=== PATIENT | female | born 1965 | race Caucasian/White ===

== ENCOUNTER 2017-02-23 08:42 | Emergency (ER) | payer OTHER ==
[2017-02-23] MEDS ORDERED: IPRATROPIUM-ALBUTEROL 3 ML NEB INHALATION STA (08:54)
[2017-02-23] MEDS ORDERED: methylPREDNISolone SOD SUCCI 125 MG/2 ML VIAL IV STA (08:54)
--- NOTE | 2017-02-23 08:56 | ED ---
General Adult HPI - General Chief complaint: Shortness of Breath Stated complaint: VIOLETTE Time Seen by Provider: 02/23/17 08:51 Source: patient, RN notes reviewed Mode of arrival: wheelchair Limitations: no limitations - History of Present Illness Initial comments: Patient is a pleasant 52-year-old female presenting to the emergency department complaining of difficulty breathing. Onset was a few days ago but worse today. Patient does have chest congestion however cough has been nonproductive. Patient feels she cannot get up the phlegm. No fever. No chest pain. Patient has a history of congestive heart failure similar symptoms previously. Patient is a smoker but never previously diagnosed with COPD or emphysema. No leg swelling or leg pain. - Related Data Home Medications Medication Instructions Recorded Confirmed Ibuprofen [Motrin] 600 mg PO BID PRN 02/23/17 02/23/17 Multivitamins, Thera [Multivitamin 1 tab PO DAILY 02/23/17 02/23/17 (formulary)] Previous Rx's Medication Instructions Recorded Albuterol Inhaler [Ventolin Hfa 2 puff INHALATION Q4HR PRN #1 02/23/17 Inhaler] inhaler predniSONE 20 mg PO BID #10 tab 02/23/17 Allergies Allergy/AdvReac Type Severity Reaction Status Date / Time No Known Allergies Allergy Verified 02/23/17 09:30 Review of Systems ROS Statement: Those systems with pertinent positive or pertinent negative responses have been documented in the HPI. ROS Other: All systems not noted in ROS Statement are negative. Constitutional: Denies: fever, chills Eyes: Denies: eye pain ENT: Denies: ear pain Respiratory: Reports: cough, dyspnea Cardiovascular: Denies: chest pain Endocrine: Denies: fatigue Gastrointestinal: Denies: abdominal pain Genitourinary: Denies: dysuria Musculoskeletal: Denies: back pain Skin: Denies: rash Neurological: Denies: weakness Past Medical History Past Medical History: Heart Failure History of Any Multi-Drug Resistant Organisms: None Reported Past Surgical History: Section Past Psychological History: No Psychological Hx Reported Smoking Status: Current every day smoker Past Alcohol Use History: None Reported Past Drug Use History: None Reported General Exam Limitations: no limitations General appearance: alert Head exam: Present: atraumatic Eye exam: Present: normal appearance, PERRL ENT exam: Present: normal oropharynx Neck exam: Present: normal inspection Respiratory exam: Present: respiratory distress, wheezes, decreased breath sounds Cardiovascular Exam: Present: regular rate, normal rhythm GI/Abdominal exam: Present: soft. Absent: tenderness Extremities exam: Present: normal inspection. Absent: pedal edema, calf tenderness Back exam: Present: normal inspection Neurological exam: Present: alert Psychiatric exam: Present: normal affect, normal mood Skin exam: Present: normal color Course Vital Signs 02/23/17 02/23/17 02/23/17 08:44 09:01 09:13 Temperature 96.8 F L Pulse Rate 87 80 84 Respiratory 28 H Rate Blood Pressure 166/86 O2 Sat by Pulse 98 Oximetry 02/23/17 09:48 Temperature Pulse Rate 75 Respiratory 20 Rate Blood Pressure 188/97 O2 Sat by Pulse 95 Oximetry EKG Findings - EKG Comments: EKG Findings:: Normal sinus rhythm 73. WA 136. QRS 78. QT 414. QTC 456. Normal axis. Normal QRS. Nonspecific ST-T. Medical Decision Making - Medical Decision Making Patient reexamined and resting comfortably in bed. Lung sounds improved following nebulizer. No respiratory distress. Patient requesting discharge home. Patient updated on results and need for follow-up. Patient states she has been told suspicion of COPD previously as well. Patient advised to discontinue smoking. - Lab Data Result diagrams: 02/23/17 09:06 02/23/17 09:06 Lab Results 02/23/17 02/23/17 02/23/17 Range/Units 09:06 09:06 09:06 WBC 14.0 H (3.8-10.6) k/uL RBC 4.89 (3.80-5.40) m/uL Hgb 15.2 (11.4-16.0) gm/dL Hct 46.5 H (34.0-46.0) % MCV 95.0 (80.0-100.0) fL MCH 31.1 (25.0-35.0) pg MCHC 32.8 (31.0-37.0) g/dL RDW 12.7 (11.5-15.5) % Plt Count 229 (150-450) k/uL Neutrophils % 80 % Lymphocytes % 11 % Monocytes % 5 % Eosinophils % 2 % Basophils % 0 % Neutrophils # 11.2 H (1.3-7.7) k/uL Lymphocytes # 1.5 (1.0-4.8) k/uL Monocytes # 0.7 (0-1.0) k/uL Eosinophils # 0.3 (0-0.7) k/uL Basophils # 0.0 (0-0.2) k/uL PT (9.0-12.0) sec INR (<1.2) APTT (22.0-30.0) sec Sodium 143 (137-145) mmol/L Potassium 3.6 (3.5-5.1) mmol/L Chloride 108 H (98-107) mmol/L Carbon Dioxide 25 (22-30) mmol/L Anion Gap 10 mmol/L BUN 9 (7-17) mg/dL Creatinine 0.77 (0.52-1.04) mg/dL Est GFR (MDRD) Af Amer >60 (>60 ml/min/1.73 sqM) Est GFR (MDRD) Non-Af >60 (>60 ml/min/1.73 sqM) Glucose 117 H (74-99) mg/dL Calcium 9.6 (8.4-10.2) mg/dL Total Bilirubin 0.6 (0.2-1.3) mg/dL AST 18 (14-36) U/L ALT 27 (9-52) U/L Alkaline Phosphatase 82 (38-126) U/L Total Creatine Kinase 50 (30-135) U/L CK-MB (CK-2) 0.9 (0.0-2.4) ng/mL CK-MB (CK-2) Rel Index 1.8 Troponin I <0.012 (0.000-0.034) ng/mL NT-Pro-B Natriuret Pep pg/mL Total Protein 7.1 (6.3-8.2) g/dL Albumin 4.2 (3.5-5.0) g/dL 02/23/17 02/23/17 Range/Units 09:06 09:06 WBC (3.8-10.6) k/uL RBC (3.80-5.40) m/uL Hgb (11.4-16.0) gm/dL Hct (34.0-46.0) % MCV (80.0-100.0) fL MCH (25.0-35.0) pg MCHC (31.0-37.0) g/dL RDW (11.5-15.5) % Plt Count (150-450) k/uL Neutrophils % % Lymphocytes % % Monocytes % % Eosinophils % % Basophils % % Neutrophils # (1.3-7.7) k/uL Lymphocytes # (1.0-4.8) k/uL Monocytes # (0-1.0) k/uL Eosinophils # (0-0.7) k/uL Basophils # (0-0.2) k/uL PT 10.4 (9.0-12.0) sec INR 1.0 (<1.2) APTT 25.5 (22.0-30.0) sec Sodium (137-145) mmol/L Potassium (3.5-5.1) mmol/L Chloride (98-107) mmol/L Carbon Dioxide (22-30) mmol/L Anion Gap mmol/L BUN (7-17) mg/dL Creatinine (0.52-1.04) mg/dL Est GFR (MDRD) Af Amer (>60 ml/min/1.73 sqM) Est GFR (MDRD) Non-Af (>60 ml/min/1.73 sqM) Glucose (74-99) mg/dL Calcium (8.4-10.2) mg/dL Total Bilirubin (0.2-1.3) mg/dL AST (14-36) U/L ALT (9-52) U/L Alkaline Phosphatase (38-126) U/L Total Creatine Kinase (30-135) U/L CK-MB (CK-2) (0.0-2.4) ng/mL CK-MB (CK-2) Rel Index Troponin I (0.000-0.034) ng/mL NT-Pro-B Natriuret Pep 246 pg/mL Total Protein (6.3-8.2) g/dL Albumin (3.5-5.0) g/dL - Radiology Data Radiology results: image reviewed (Chest x-ray shows no acute process.) Disposition Clinical Impression: Acute bronchospasm Disposition: HOME SELF-CARE Condition: Stable Instructions: COPD (Chronic Obstructive Pulmonary Disease) (ED) Additional Instructions: Please follow-up with primary care physician in the next day or 2 for recheck. Return for difficulty breathing, fevers, chest pain, worsening symptoms or other concerns. Prescriptions: Albuterol Inhaler [Ventolin Hfa Inhaler] 2 puff INHALATION Q4HR PRN #1 inhaler PRN Reason: Dyspnea predniSONE 20 mg PO BID #10 tab Referrals: Indiana Goode MD [STAFF PHYSICIAN] - 1-2 days Roxy Auguste MD [STAFF PHYSICIAN] - 1-2 days Time of Disposition: 10:52
[2017-02-23 09:33] LABS: Basophils % (A) 0 %; CHCM 32.8; Eosinophils # (A) 0.3 k/uL (0-0.7); Eosinophils % (A) 2 %; HCT 46.5 % (34.0-46.0); HDW 2.31; HGB 15.2 gm/dL (11.4-16.0); Luc # (Auto) 0.24; Luc % (Auto) 2; Lymphocytes # (A) 1.5 k/uL (1.0-4.8); Lymphocytes % (A) 11 %; MCH 31.1 pg (25.0-35.0); MCHC 32.8 g/dL (31.0-37.0); Monocytes # (A) 0.7 k/uL (0-1.0); Monocytes % (A) 5 %; Neutrophils # (A) 11.2 k/uL (1.3-7.7); Neutrophils % (A) 80 %; RBC 4.89 m/uL (3.80-5.40); RDW 12.7 % (11.5-15.5); WBC (Perox) 13.56
--- NOTE | 2017-02-23 09:40 | XR ---
EXAMINATION TYPE: XR chest 2V DATE OF EXAM: 02/23/2017 COMPARISON: 02/21/2015 TECHNIQUE: PA and lateral views submitted. HISTORY: Shortness of breath FINDINGS: The lungs are clear and there is no pneumothorax, pleural effusion, or focal pneumonia. Curvature t he spine with hypertrophic and degenerative change. Mild hyperinflation correlate for COPD. IMPRESSION: 1. No acute process.
[2017-02-23 09:41] LABS: ALT 27 U/L (9-52); AST 18 U/L (14-36); Alkaline Phosphatase 82 U/L (38-126); Anion Gap 10 mmol/L; Blood Urea Nitrogen 9 mg/dL (7-17); Calcium 9.6 mg/dL (8.4-10.2); Carbon Dioxide 25 mmol/L (22-30); Chloride 108 mmol/L (98-107); Glucose 117 mg/dL (74-99); Non-African American GFR(MDRD) >60 (>60 ml/min/1.73 sqM); Potassium 3.6 mmol/L (3.5-5.1); Sodium 143 mmol/L (137-145); Total Bilirubin 0.6 mg/dL (0.2-1.3); Total Protein 7.1 g/dL (6.3-8.2)
[2017-02-23 09:45] LABS: Partial Thromboplastin Time 25.5 sec (22.0-30.0); Prothrombin Time 10.4 sec (9.0-12.0)
[2017-02-23 10:00] LABS: Creatine Kinase 50 U/L (30-135)
[2017-02-23 10:12] LABS: Creatine Kinase MB 0.9 ng/mL (0.0-2.4); Troponin I <0.012 ng/mL (0.000-0.034)
[2017-02-23 11:05] VITALS: BP 169/91; PULSE 82; RESP 16; TEMP 97.6
== END 2017-02-23 11:00 | disposition home or self-care (01) ==
LOC: EC 08:42
DX: J98.01 Acute bronchospasm (principal); I50.9 Heart failure, unspecified; F17.200 Nicotine dependence, unspecified, uncomplicated; Z79.899 Other long term (current) drug therapy
CPT/HCPCS: 36415; 94640; 93005; 83880; 80053; 82550; 82553; 84484; 85025; 85610; 85730; 71020; 99285; 96374; J2930

== ENCOUNTER 2017-09-23 21:58 | Inpatient (IN) | payer OTHER ==
[2017-09-23 22:20] LABS: Basophils # (A) 0.1 k/uL (0-0.2); Basophils % (A) 1 %; Eosinophils # (A) 0.3 k/uL (0-0.7); Eosinophils % (A) 2 %; HCT 44.5 % (34.0-46.0); HGB 14.9 gm/dL (11.4-16.0); Lymphocytes # (A) 4.3 k/uL (1.0-4.8); Lymphocytes % (A) 26 %; MCH 31.4 pg (25.0-35.0); MCHC 33.4 g/dL (31.0-37.0); Monocytes % (A) 6 %; Neutrophils # (A) 9.7 k/uL (1.3-7.7); Neutrophils % (A) 60 %; Platelet Count 393 k/uL (150-450); RBC 4.74 m/uL (3.80-5.40); RDW 13.3 % (11.5-15.5); WBC 16.2 k/uL (3.8-10.6)
[2017-09-23 22:25] LABS: Glucose,Whole Blood 245 mg/dL (75-99)
[2017-09-23 22:26] LABS: Albumin 4.1 g/dL (3.5-5.0); Calcium 9.4 mg/dL (8.4-10.2); Potassium 3.1 mmol/L (3.5-5.1); Total Bilirubin 0.5 mg/dL (0.2-1.3); Total Protein 6.6 g/dL (6.3-8.2)
--- NOTE | 2017-09-23 22:28 | XR ---
EXAMINATION TYPE: XR chest 1V portable DATE OF EXAM: 09/23/2017 COMPARISON: 02/23/2017 HISTORY: A myocardial infarct. 2. Placement. TECHNIQUE: Single frontal view of the chest is obtained. FINDINGS: Endotracheal tube has the tip at the origin right main stem bronchus. Heart size is normal . There is no heart failure. Lungs are clear. There are chest leads. IMPRESSION: No active cardiopulmonary disease. No change compared to old exam. The endotracheal tube should be pulled back 3 to 4 cm.
[2017-09-23 22:30] LABS: Creatine Kinase 78 U/L (30-135)
[2017-09-23 22:31] LABS: Prothrombin Time 10.3 sec (9.0-12.0)
[2017-09-23 22:43] LABS: Creatine Kinase MB 0.6 ng/mL (0.0-2.4); Troponin I <0.012 ng/mL (0.000-0.034)
[2017-09-23] MEDS ORDERED: MAGNESIUM SULFATE-D5W PMX 1 GM in DEXTROSE/WATER 1 100ML.BAG IVPB ONE ×2 (22:45→23:15)
[2017-09-23] MEDS ORDERED: MIDAZOLAM (PF) 1 MG/ML 5 ML VIAL IV STA (22:45)
[2017-09-23] MEDS ORDERED: ROCURONIUM BROMIDE 10 MG/ML 10 ML VIAL IV STA (22:45)
[2017-09-23] MEDS ORDERED: AMIODARONE 450 MG in DEXTROSE 5% IN WATER 250 ML IV ONE ×2 (22:49)
[2017-09-23 22:55] LABS: Amorphous Sediment,Urine Few /hpf; Appearance,Urine Cloudy (Clear); Bilirubin,Urine Negative (Negative); Blood,Urine Small (Negative); Color,Urine Yellow; Glucose,Urine (UA) 2+ (Negative); Hyaline Casts,Urine 58 /lpf (0-2); Ketones,Urine Negative (Negative); Leukocyte Esterase,Urine Negative (Negative); Mucus,Urine Rare /hpf; Nitrite,Urine Negative (Negative); Protein,Urine 3+ (Negative); RBC,Urine 43 /hpf (0-5); Specific Gravity,Urine 1.018 (1.001-1.035); Squamous Epithelial Cell,Urine 8 /hpf (0-4); Urobilinogen,Urine <2.0 mg/dL (<2.0); WBC,Urine 177 /hpf (0-5)
[2017-09-23 22:56] LABS: Cocaine Screen,Urine Not Detected (NotDetected); Opiate Screen,Urine Not Detected (NotDetected); Phencyclidine Screen,Urine Not Detected (NotDetected); Urn Cannabinoid Scrn Detected (NotDetected)
[2017-09-23 22:57] LABS: Amphetamine Screen,Urine Not Detected (NotDetected); Barbiturate Screen,Urine Not Detected (NotDetected); Benzodiazepines Screen,Urine Not Detected (NotDetected); Methadone Screen, Urine Not Detected (NotDetected); Oxycodone Screen, Urine Not Detected (NotDetected); Tricyclic Antidepressant,Urine Not Detected (NotDetected)
[2017-09-23] MEDS ORDERED: PROPOFOL 1,000 MG in EMPTY BAG 1 BAG IV ONE (22:58)
[2017-09-23 22:59] LABS: Acetaminophen <10.0 ug/mL; Magnesium 1.8 mg/dL (1.6-2.3); Salicylate <1.0 mg/dL
--- NOTE | 2017-09-23 23:20 | XR ---
EXAMINATION TYPE: XR chest 1V portable DATE OF EXAM: 09/23/2017 COMPARISON: Today HISTORY: Check tube placement TECHNIQUE: Single frontal view of the chest is obtained. FINDINGS: Endotracheal tube has tip 2 cm from the mary. The lungs are clear of infiltrate. There i s no heart failure. Costophrenic angles are clear. IMPRESSION: Endotracheal tube is in improved position. This could be pulled back 1 to 2 cm.
[2017-09-23] MEDS: LORazepam 2 MG/ML INJ IV STA ×3 (23:26→23:51)
[2017-09-23] MEDS ORDERED: LORazepam Vial 40 MG in DEXTROSE 5% IN WATER 80 ML IV SCH ×2 (23:30)
--- NOTE | 2017-09-23 23:30 | ED ---
General Adult HPI - General Chief complaint: Cardiac Arrest/CPR Stated complaint: unresponsive Time Seen by Provider: 09/23/17 22:15 Source: EMS, RN notes reviewed Mode of arrival: EMS Limitations: altered mental status, physical limitation - History of Present Illness Initial comments: 52-year-old female presenting as a hospital arrest. EMS reports finding the patient with agonal respirations, pinpoint pupils. Patient is placed on the monitor, found to be in V. fib arrest. She is defibrillated twice by EMS. She returns to normal sinus rhythm. She is given 4 mg of Narcan with improvement in respirations. According to patient's brother who is available for history later in the patient's course, she is not known to use heroin or opiate medications. She does occasionally smoke marijuana. - Related Data Home Medications Medication Instructions Recorded Confirmed Ibuprofen [Motrin] 600 mg PO BID PRN 02/23/17 02/23/17 Multivitamins, Thera [Multivitamin 1 tab PO DAILY 02/23/17 02/23/17 (formulary)] Previous Rx's Medication Instructions Recorded Albuterol Inhaler [Ventolin Hfa 2 puff INHALATION Q4HR PRN #1 02/23/17 Inhaler] inhaler predniSONE 20 mg PO BID #10 tab 02/23/17 Allergies Allergy/AdvReac Type Severity Reaction Status Date / Time No Known Allergies Allergy Verified 02/23/17 09:30 Review of Systems ROS Statement: Those systems with pertinent positive or pertinent negative responses have been documented in the HPI. ROS Other: All systems not noted in ROS Statement are negative. Past Medical History Past Medical History: Heart Failure History of Any Multi-Drug Resistant Organisms: None Reported Past Surgical History: Section Past Psychological History: No Psychological Hx Reported Smoking Status: Current every day smoker Past Alcohol Use History: Unable to Obtain Past Drug Use History: Unable to Obtain General Exam Limitations: altered mental status, physical limitation General appearance: obtunded, in distress Head exam: Present: atraumatic, normocephalic Eye exam: Present: PERRL (3 mm bilaterally and reactive) Neck exam: Present: normal inspection. Absent: tenderness Respiratory exam: Present: normal lung sounds bilaterally, respiratory distress , other (Equal breath sounds with BVM) Cardiovascular Exam: Present: normal rhythm, tachycardia GI/Abdominal exam: Present: soft. Absent: distended, tenderness, guarding Extremities exam: Present: normal inspection, normal capillary refill. Absent: pedal edema Neurological exam: Present: other (Patient is intubated upon arrival with rocuronium. No spontaneous movements, pupils are reactive.) Skin exam: Present: warm, dry, intact. Absent: cyanosis, diaphoretic Course Vital Signs 09/23/17 09/23/17 09/23/17 22:03 22:12 22:19 Temperature 97.3 F L Pulse Rate 100 Pulse Rate [ 86 88 Mash Filter Press Operator ] Respiratory 12 26 H Rate Blood Pressure 151/92 Blood Pressure 106/67 123/79 [Left Arm] O2 Sat by Pulse 90 L 100 100 Oximetry 09/23/17 09/23/17 09/23/17 22:47 22:56 23:00 Temperature Pulse Rate 116 H Pulse Rate [ 114 H 116 H Mash Filter Press Operator ] Respiratory 26 H 26 H 20 Rate Blood Pressure 179/107 Blood Pressure 199/115 179/107 [Left Arm] O2 Sat by Pulse 100 100 100 Oximetry 09/23/17 09/23/17 09/23/17 23:02 23:04 23:07 Temperature Pulse Rate Pulse Rate [ 114 H 110 H 94 Mash Filter Press Operator ] Respiratory 20 22 Rate Blood Pressure Blood Pressure 182/107 127/81 108/76 [Left Arm] O2 Sat by Pulse 100 100 99 Oximetry 09/23/17 09/23/17 09/23/17 23:15 23:27 23:29 Temperature Pulse Rate Pulse Rate [ 108 H 96 94 Mash Filter Press Operator ] Respiratory 24 24 26 H Rate Blood Pressure Blood Pressure 140/83 125/66 132/86 [Left Arm] O2 Sat by Pulse 100 100 95 Oximetry EKG Findings - EKG Comments: EKG Findings:: EKG obtained at 2203, shows ventricular rate of 110, MA interval 126, QRS duration 94, QTC is very prolonged at 533, there is nonspecific ST segment changes, no ST segment elevation. EKG obtained at 2232 shows normal sinus rhythm, occasional PVC, right atrial enlargement, ventricular rate of 95, MA interval 182, QRS duration 96, QTC 462 which is significantly improved compared to previous. No ST segment elevation Procedures - Intubation Time Out Performed: Yes Sedative: Versed Mg Given: 5 Paralytic: Rocuronium Mg Given: 50 Laryngoscope: Kalani Size: 3 ET Tube Size: 7.5 ET Tube Uncuffed: No Tube Secured Depth (cm): 22 Tube Secured Location: lips Tube Placement Confirmation: visualized tube passing through cords, equal breath sounds bilaterally, no breath sounds over epigastrium, confirmation by capnometry Patient Tolerated Procedure: well Intubation Complications: none Medical Decision Making - Medical Decision Making 52-year-old female presenting as out of hospital V. fib arrest. Patient was down for approximately 5 minutes prior to EMS arrival. She received 20 minutes of on scene care, however she had return of spontaneous circulation and normal sinus rhythm early in this course. Patient is in sinus rhythm on initial presentation. Normal blood pressure. She is nonresponsive, no significant spontaneous respirations. EKG does not show any ST segment elevation. There is prolonged QT. Prehospital rhythm strip is concerning for torsades. Patient receives repeat EKG approximately 30 minutes after initial presentation, this does show normalization of QTc. Patient given 2 g of magnesium. She is started on amiodarone infusion. Chest x-ray is clear, no pneumonia, no congestive heart failure. Laboratory studies reveal elevated white blood cell count 16.2 this baby reactive. Hemoglobin stable 14.9, potassium is 3.1. This is replaced with 40 mEq. Troponin neg. Urinalysis is positive for 177 WBCs. Urine culture will be obtained. Head CT is obtained, this is negative for acute intracranial pathology. Case discussed with Dr. Gould who will accept the admission, case discussed with Dr. Chew who will accept the patient in the ICU. Dr. Rocha aware of patient. - Lab Data Result diagrams: 09/23/17 22:00 09/23/17 22:00 Lab Results 09/23/17 09/23/17 09/23/17 Range/Units 22:00 22:00 22:00 WBC 16.2 H (3.8-10.6) k/uL RBC 4.74 (3.80-5.40) m/uL Hgb 14.9 (11.4-16.0) gm/dL Hct 44.5 (34.0-46.0) % MCV 94.0 (80.0-100.0) fL MCH 31.4 (25.0-35.0) pg MCHC 33.4 (31.0-37.0) g/dL RDW 13.3 (11.5-15.5) % Plt Count 393 (150-450) k/uL Neutrophils % 60 % Lymphocytes % 26 % Monocytes % 6 % Eosinophils % 2 % Basophils % 1 % Neutrophils # 9.7 H (1.3-7.7) k/uL Lymphocytes # 4.3 (1.0-4.8) k/uL Monocytes # 1.0 (0-1.0) k/uL Eosinophils # 0.3 (0-0.7) k/uL Basophils # 0.1 (0-0.2) k/uL PT (9.0-12.0) sec INR (<1.2) APTT (22.0-30.0) sec Sodium 142 (137-145) mmol/L Potassium 3.1 L (3.5-5.1) mmol/L Chloride 106 (98-107) mmol/L Carbon Dioxide 16 L (22-30) mmol/L Anion Gap 20 mmol/L BUN 9 (7-17) mg/dL Creatinine 0.90 (0.52-1.04) mg/dL Est GFR (CKD-EPI)AfAm 86 (>60 ml/min/1.73 sqM) Est GFR (CKD-EPI)NonAf 75 (>60 ml/min/1.73 sqM) Glucose 224 H (74-99) mg/dL POC Glucose (mg/dL) (75-99) mg/dL POC Glu Social Sciences Professor ID Calcium 9.4 (8.4-10.2) mg/dL Magnesium (1.6-2.3) mg/dL Total Bilirubin 0.5 (0.2-1.3) mg/dL AST 188 H (14-36) U/L ALT 97 H (9-52) U/L Alkaline Phosphatase 117 (38-126) U/L Total Creatine Kinase 78 (30-135) U/L CK-MB (CK-2) 0.6 (0.0-2.4) ng/mL CK-MB (CK-2) Rel Index 0.8 Troponin I <0.012 (0.000-0.034) ng/mL Total Protein 6.6 (6.3-8.2) g/dL Albumin 4.1 (3.5-5.0) g/dL Urine Color Urine Appearance (Clear) Urine pH (5.0-8.0) Ur Specific [place] (1.001-1.035) Urine Protein (Negative) Urine Glucose (UA) (Negative) Urine Ketones (Negative) Urine Blood (Negative) Urine Nitrite (Negative) Urine Bilirubin (Negative) Urine Urobilinogen (<2.0) mg/dL Ur Leukocyte Esterase (Negative) Urine RBC (0-5) /hpf Urine WBC (0-5) /hpf Ur Squamous Epith Cells (0-4) /hpf Amorphous Sediment (None) /hpf Hyaline Casts (0-2) /lpf Urine Mucus (None) /hpf Salicylates mg/dL Urine Opiates Screen (NotDetected) Ur Oxycodone Screen (NotDetected) Urine Methadone Screen (NotDetected) Ur Propoxyphene Screen (NotDetected) Acetaminophen ug/mL Ur Barbiturates Screen (NotDetected) U Tricyclic Antidepress (NotDetected) Ur Phencyclidine Scrn (NotDetected) Ur Amphetamines Screen (NotDetected) U Methamphetamines Scrn (NotDetected) U Benzodiazepines Scrn (NotDetected) Urine Cocaine Screen (NotDetected) U Marijuana (THC) Screen (NotDetected) 09/23/17 09/23/17 09/23/17 Range/Units 22:00 22:00 22:20 WBC (3.8-10.6) k/uL RBC (3.80-5.40) m/uL Hgb (11.4-16.0) gm/dL Hct (34.0-46.0) % MCV (80.0-100.0) fL MCH (25.0-35.0) pg MCHC (31.0-37.0) g/dL RDW (11.5-15.5) % Plt Count (150-450) k/uL Neutrophils % % Lymphocytes % % Monocytes % % Eosinophils % % Basophils % % Neutrophils # (1.3-7.7) k/uL Lymphocytes # (1.0-4.8) k/uL Monocytes # (0-1.0) k/uL Eosinophils # (0-0.7) k/uL Basophils # (0-0.2) k/uL PT 10.3 (9.0-12.0) sec INR 1.0 (<1.2) APTT 23.0 (22.0-30.0) sec Sodium (137-145) mmol/L Potassium (3.5-5.1) mmol/L Chloride (98-107) mmol/L Carbon Dioxide (22-30) mmol/L Anion Gap mmol/L BUN (7-17) mg/dL Creatinine (0.52-1.04) mg/dL Est GFR (CKD-EPI)AfAm (>60 ml/min/1.73 sqM) Est GFR (CKD-EPI)NonAf (>60 ml/min/1.73 sqM) Glucose (74-99) mg/dL POC Glucose (mg/dL) (75-99) mg/dL POC Glu Social Sciences Professor ID Calcium (8.4-10.2) mg/dL Magnesium 1.8 (1.6-2.3) mg/dL Total Bilirubin (0.2-1.3) mg/dL AST (14-36) U/L ALT (9-52) U/L Alkaline Phosphatase (38-126) U/L Total Creatine Kinase (30-135) U/L CK-MB (CK-2) (0.0-2.4) ng/mL CK-MB (CK-2) Rel Index Troponin I (0.000-0.034) ng/mL Total Protein (6.3-8.2) g/dL Albumin (3.5-5.0) g/dL Urine Color Yellow Urine Appearance Cloudy H (Clear) Urine pH 7.0 (5.0-8.0) Ur Specific [place] 1.018 (1.001-1.035) Urine Protein 3+ H (Negative) Urine Glucose (UA) 2+ H (Negative) Urine Ketones Negative (Negative) Urine Blood Small H (Negative) Urine Nitrite Negative (Negative) Urine Bilirubin Negative (Negative) Urine Urobilinogen <2.0 (<2.0) mg/dL Ur Leukocyte Esterase Negative (Negative) Urine RBC 43 H (0-5) /hpf Urine WBC 177 H (0-5) /hpf Ur Squamous Epith Cells 8 H (0-4) /hpf Amorphous Sediment Few H (None) /hpf Hyaline Casts 58 H (0-2) /lpf Urine Mucus Rare H (None) /hpf Salicylates <1.0 mg/dL Urine Opiates Screen Not Detected (NotDetected) Ur Oxycodone Screen Not Detected (NotDetected) Urine Methadone Screen Not Detected (NotDetected) Ur Propoxyphene Screen Not Detected (NotDetected) Acetaminophen <10.0 ug/mL Ur Barbiturates Screen Not Detected (NotDetected) U Tricyclic Antidepress Not Detected (NotDetected) Ur Phencyclidine Scrn Not Detected (NotDetected) Ur Amphetamines Screen Not Detected (NotDetected) U Methamphetamines Scrn Not Detected (NotDetected) U Benzodiazepines Scrn Not Detected (NotDetected) Urine Cocaine Screen Not Detected (NotDetected) U Marijuana (THC) Screen Detected H (NotDetected) 09/23/17 Range/Units 22:24 WBC (3.8-10.6) k/uL RBC (3.80-5.40) m/uL Hgb (11.4-16.0) gm/dL Hct (34.0-46.0) % MCV (80.0-100.0) fL MCH (25.0-35.0) pg MCHC (31.0-37.0) g/dL RDW (11.5-15.5) % Plt Count (150-450) k/uL Neutrophils % % Lymphocytes % % Monocytes % % Eosinophils % % Basophils % % Neutrophils # (1.3-7.7) k/uL Lymphocytes # (1.0-4.8) k/uL Monocytes # (0-1.0) k/uL Eosinophils # (0-0.7) k/uL Basophils # (0-0.2) k/uL PT (9.0-12.0) sec INR (<1.2) APTT (22.0-30.0) sec Sodium (137-145) mmol/L Potassium (3.5-5.1) mmol/L Chloride (98-107) mmol/L Carbon Dioxide (22-30) mmol/L Anion Gap mmol/L BUN (7-17) mg/dL Creatinine (0.52-1.04) mg/dL Est GFR (CKD-EPI)AfAm (>60 ml/min/1.73 sqM) Est GFR (CKD-EPI)NonAf (>60 ml/min/1.73 sqM) Glucose (74-99) mg/dL POC Glucose (mg/dL) 245 H (75-99) mg/dL POC Glu Social Sciences Professor ID Mahsa Machado Calcium (8.4-10.2) mg/dL Magnesium (1.6-2.3) mg/dL Total Bilirubin (0.2-1.3) mg/dL AST (14-36) U/L ALT (9-52) U/L Alkaline Phosphatase (38-126) U/L Total Creatine Kinase (30-135) U/L CK-MB (CK-2) (0.0-2.4) ng/mL CK-MB (CK-2) Rel Index Troponin I (0.000-0.034) ng/mL Total Protein (6.3-8.2) g/dL Albumin (3.5-5.0) g/dL Urine Color Urine Appearance (Clear) Urine pH (5.0-8.0) Ur Specific [place] (1.001-1.035) Urine Protein (Negative) Urine Glucose (UA) (Negative) Urine Ketones (Negative) Urine Blood (Negative) Urine Nitrite (Negative) Urine Bilirubin (Negative) Urine Urobilinogen (<2.0) mg/dL Ur Leukocyte Esterase (Negative) Urine RBC (0-5) /hpf Urine WBC (0-5) /hpf Ur Squamous Epith Cells (0-4) /hpf Amorphous Sediment (None) /hpf Hyaline Casts (0-2) /lpf Urine Mucus (None) /hpf Salicylates mg/dL Urine Opiates Screen (NotDetected) Ur Oxycodone Screen (NotDetected) Urine Methadone Screen (NotDetected) Ur Propoxyphene Screen (NotDetected) Acetaminophen ug/mL Ur Barbiturates Screen (NotDetected) U Tricyclic Antidepress (NotDetected) Ur Phencyclidine Scrn (NotDetected) Ur Amphetamines Screen (NotDetected) U Methamphetamines Scrn (NotDetected) U Benzodiazepines Scrn (NotDetected) Urine Cocaine Screen (NotDetected) U Marijuana (THC) Screen (NotDetected) Critical Care Time Critical Care Time: Yes Total Critical Care Time: 75 Disposition Clinical Impression: Cardiac arrest, Torsades de pointes, Ventricular fibrillation Disposition: ADMITTED IP TO THIS HOSP Condition: Serious Is patient prescribed a controlled substance at d/c from ED?: No Referrals: None,Stated [Primary Care Provider] - 1-2 days Decision to Admit Reason: Admit from EC Decision Date: 09/23/17 Decision Time: 23:45
[2017-09-23] MEDS: POTASSIUM CHLORIDE 20 MEQ in WATER FOR INJECTION 1 100ML.BAG IVPB SCH (23:35)
--- NOTE | 2017-09-23 23:44 | CT ---
EXAMINATION TYPE: CT brain wo con DATE OF EXAM: 09/23/2017 COMPARISON: NONE HISTORY: Overdose, unresponsive CT DLP: 1064.30 mGycm Automated exposure control for dose reduction was used. FINDINGS: Ventricles of normal size. There is no mass effect nor midline shift. There is no sign of intracrania l hemorrhage. The calvarium is intact. There is some mucosal thickening in the ethmoid and frontal si nuses. IMPRESSION: NEGATIVE CT SCAN OF THE BRAIN. MILD SINUSITIS.
[2017-09-23] MEDS ORDERED: NALOXONE 0.4 MG/ML 1 ML VIAL IV PRN (23:46)
[2017-09-23] MEDS ORDERED: SODIUM CHLORIDE 0.9% 500 ML IV STA (23:56)
[2017-09-23] MEDS ORDERED: SODIUM CHLORIDE 0.9% 1,000 ML IV ONE (23:56)
[2017-09-24 00:10] LABS: ABG Base Excess -5.5 mmol/L; ABG HCO3 21 mmol/L (21-25); ABG PCO2 43 mmHg (35-45); ABG PO2 250 mmHg (83-108); ABG TCO2 22 mmol/L (19-24)
[2017-09-24] MEDS ORDERED: AMPICILLIN-SULBACTAM 3 GM in SODIUM CHLORIDE 0.9% 100 ML IVPB STA (00:16)
[2017-09-24 00:39] LABS: Glucose,Whole Blood 193 mg/dL (75-99)
[2017-09-24] MEDS: 0.9% NACL WITH KCL 20 MEQ/L 1,000 ML IV SCH ×4 (02:22→23:06)
[2017-09-24] MEDS: POTASSIUM CHLORIDE 20 MEQ in WATER FOR INJECTION 1 100ML.BAG IVPB SCH (02:25)
[2017-09-24 04:43] LABS: ABG Base Excess -2.5 mmol/L; ABG HCO3 23 mmol/L (21-25); ABG Oxygen Saturation 99.8 % (94-97); ABG PCO2 41 mmHg (35-45); ABG PH 7.36 (7.35-7.45); ABG PO2 189 mmHg (83-108); ABG TCO2 24 mmol/L (19-24)
[2017-09-24 04:56] LABS: INR 1.1 (<1.2); Prothrombin Time 10.4 sec (9.0-12.0)
[2017-09-24 04:58] LABS: Basophils % (A) 0 %; Eosinophils % (A) 0 %; HCT 39.3 % (34.0-46.0); HGB 12.8 gm/dL (11.4-16.0); Lymphocytes # (A) 0.9 k/uL (1.0-4.8); Lymphocytes % (A) 4 %; MCH 30.6 pg (25.0-35.0); MCHC 32.6 g/dL (31.0-37.0); MCV 93.8 fL (80.0-100.0); Mean Platelet Volume 7.4; Monocytes # (A) 0.8 k/uL (0-1.0); Monocytes % (A) 4 %; Neutrophils # (A) 18.3 k/uL (1.3-7.7); Neutrophils % (A) 91 %; Platelet Count 254 k/uL (150-450); RBC 4.19 m/uL (3.80-5.40); RDW 13.3 % (11.5-15.5); WBC 20.1 k/uL (3.8-10.6)
[2017-09-24 05:05] LABS: ALT 82 U/L (9-52); AST 97 U/L (14-36); Albumin 3.2 g/dL (3.5-5.0); Alkaline Phosphatase 102 U/L (38-126); Anion Gap 11 mmol/L; Blood Urea Nitrogen 10 mg/dL (7-17); Calcium 8.2 mg/dL (8.4-10.2); Carbon Dioxide 21 mmol/L (22-30); Chloride 109 mmol/L (98-107); Glucose 118 mg/dL (74-99); Phosphorus 2.8 mg/dL (2.5-4.5); Potassium 3.9 mmol/L (3.5-5.1); Sodium 141 mmol/L (137-145); Total Bilirubin 0.2 mg/dL (0.2-1.3); Total Protein 5.5 g/dL (6.3-8.2)
[2017-09-24] MEDS ORDERED: Potassium Replacement Protocol 1 EACH MISC MISCELLANE PRN (05:16)
[2017-09-24] MEDS: PROPOFOL 1,000 MG in EMPTY BAG 1 BAG IV SCH ×2 (05:25→10:22)
[2017-09-24] MEDS: POTASSIUM CHLORIDE 10 MEQ in WATER FOR INJECTION 1 100ML.BAG IVPB SCH ×2 (05:29→06:23)
--- NOTE | 2017-09-24 05:41 | P.HPIM ---
History of Present Illness H&P Date: 09/24/17 Chief Complaint: cardiac arrest 52-year-old female who presented to the hospital after cardiac arrest. Patient is intubated and unable to provide any history. History and information were obtained by reviewing the chart. Seems like her family denied any drug abuse however she does smoke marijuana. EMS was called this night as patient was found unresponsive, EMS found her to be in V. fib arrest with agonal breathing. ACLS protocol was followed she was shocked twice and then return to normal sinus rhythm. She was also given some Narcan without any improvement in mental status but it's noted that her breathing was improving. In the emergency department due to severely altered mental status and obtundation decision was made to intubate the patient. She was also started on amiodarone drip. Currently patient admitted to the ICU for further care Computed tomography scan of the head showed no acute process Total time time estimated to be around 5 minutes prior to arrival of EMS, ACLS protocol lasted for 20 minutes however she had return of spontaneous circulation early on during that course. Cardiology evaluated her EKGs while in the emergency department and suggested that possibly due to torsade due to prolonged QT however this was normalized upon repeating her EKG and receiving magnesium in the, no significant ST changes was noted at this time. Review of Systems Unable to obtain patient is intubated Past Medical History Past Medical History: Heart Failure History of Any Multi-Drug Resistant Organisms: None Reported Past Surgical History: Section Past Psychological History: No Psychological Hx Reported Smoking Status: Unknown if ever smoked Past Alcohol Use History: Unable to Obtain Past Drug Use History: Unable to Obtain - Past Family History Family Additional Family Medical History / Comment(s): Unable to obtain patient intubated Medications and Allergies Home Medications Medication Instructions Recorded Confirmed Type Albuterol Inhaler [Ventolin Hfa 2 puff INHALATION Q4HR PRN #1 02/23/17 Rx Inhaler] inhaler Ibuprofen [Motrin] 600 mg PO BID PRN 02/23/17 02/23/17 History Multivitamins, Thera [Multivitamin 1 tab PO DAILY 02/23/17 02/23/17 History (formulary)] predniSONE 20 mg PO BID #10 tab 02/23/17 Rx Allergies Allergy/AdvReac Type Severity Reaction Status Date / Time No Known Allergies Allergy Verified 02/23/17 09:30 Physical Exam Vitals: Vital Signs Temp Pulse Pulse Resp BP BP Pulse Ox 09/24/17 05:00 68 16 101/65 99 09/24/17 04:30 63 14 96/65 99 09/24/17 04:00 97.6 F 66 20 102/65 100 09/24/17 03:30 65 21 114/74 100 09/24/17 03:00 69 18 110/73 99 09/24/17 02:30 71 19 118/78 99 09/24/17 02:00 70 20 107/76 99 09/24/17 01:30 76 18 110/76 99 09/24/17 01:00 97.1 F L 80 17 109/74 98 09/24/17 00:38 81 09/24/17 00:12 92 20 110/74 100 09/24/17 00:03 102 H 24 129/79 100 09/23/17 23:29 94 26 H 132/86 95 09/23/17 23:27 96 24 125/66 100 09/23/17 23:15 108 H 24 140/83 100 09/23/17 23:07 94 22 108/76 99 09/23/17 23:04 110 H 20 127/81 100 09/23/17 23:02 114 H 182/107 100 09/23/17 23:00 116 H 20 179/107 100 09/23/17 22:56 116 H 26 H 179/107 100 09/23/17 22:47 114 H 26 H 199/115 100 09/23/17 22:19 88 26 H 123/79 100 09/23/17 22:12 86 106/67 100 09/23/17 22:03 97.3 F L 100 12 151/92 90 L Intake and Output 09/23/17 09/23/17 09/24/17 14:59 22:59 06:59 Intake Total 702.18 Output Total 800 Balance -97.82 Intake: IV 700 0.9% NaCl with KCl 20 Meq 600 /l 1,000 ml @ 100 mls/hr IV .Q10H [facility] Rx#: [id number] Ampicillin-Sulbactam 3 gm 100 In Sodium Chloride 0.9% 100 ml @ 100 mls/hr IVPB ONCE STA Rx#:[id number] Intake, IV Titration 2.18 Amount Propofol 1,000 mg In 2.18 Empty Bag 1 bag @ Titrate IV .Q0M [facility] Rx#: [id number] Output: Gastric Drainage 150 Urine 650 Other: Voiding Method Indwelling Catheter Indwelling Catheter # Bowel Movements 1 Weight 72.575 kg 72.5 kg Constitutional: Patient is intubated and unresponsive Eyes: Anicteric sclerae, moist conjunctiva Pupils pinpoint bilaterally ENMT: NC/AT Oropharynx clear, no erythema, or exudates Neck: Supple, FROM, no masses, or JVD No carotid bruits No thyromegaly Lungs: Clear to auscultation Clear to percussion Normal respiratory effort, no accessory muscle use Cardiovascular: Heart regular in rate and rhythm, No murmurs, gallops, or rubs No peripheral edema Abdominal: Soft Nontender, no guarding, rebound or rigidity Abdomen moving with respiration Normoactive bowel sounds No hepatomegaly, No splenomegaly No palpable mass No abdominal wall hernia noted Skin: Normal temperature, tone, texture, turgor No induration No subcutaneous nodules No rash, lesions No ulcers Extremities: No digital cyanosis No clubbing Pedal pulses intact and symmetrical Radial pulses intact and symmetrical No calf tenderness Psychiatric: Patient is intubated, and unresponsive Neuro unable to do full neurologic exam patient not cooperating due to being unresponsive and sedated, no response to pain stimulation Lymphatics: no palpable cervical or supraclavicular , or inguinal lymph nodes Results CBC & Chem 7: 09/24/17 04:09 09/24/17 04:09 Labs: Abnormal Lab Results - Last 24 Hours (Table) 09/23/17 09/23/17 09/23/17 Range/Units 22:00 22:00 22:20 WBC 16.2 H (3.8-10.6) k/uL Neutrophils # 9.7 H (1.3-7.7) k/uL Lymphocytes # (1.0-4.8) k/uL ABG pH (7.35-7.45) ABG pO2 (83-108) mmHg ABG O2 Saturation (94-97) % Potassium 3.1 L (3.5-5.1) mmol/L Chloride (98-107) mmol/L Carbon Dioxide 16 L (22-30) mmol/L Glucose 224 H (74-99) mg/dL POC Glucose (mg/dL) (75-99) mg/dL Calcium (8.4-10.2) mg/dL AST 188 H (14-36) U/L ALT 97 H (9-52) U/L Total Protein (6.3-8.2) g/dL Albumin (3.5-5.0) g/dL TSH (0.465-4.680) mIU/L Urine Appearance Cloudy H (Clear) Urine Protein 3+ H (Negative) Urine Glucose (UA) 2+ H (Negative) Urine Blood Small H (Negative) Urine RBC 43 H (0-5) /hpf Urine WBC 177 H (0-5) /hpf Ur Squamous Epith Cells 8 H (0-4) /hpf Amorphous Sediment Few H (None) /hpf Hyaline Casts 58 H (0-2) /lpf Urine Mucus Rare H (None) /hpf U Marijuana (THC) Screen Detected H (NotDetected) 09/23/17 09/23/17 09/24/17 Range/Units 22:24 23:27 00:00 WBC (3.8-10.6) k/uL Neutrophils # (1.3-7.7) k/uL Lymphocytes # (1.0-4.8) k/uL ABG pH 7.30 L (7.35-7.45) ABG pO2 250 H (83-108) mmHg ABG O2 Saturation 100.0 H (94-97) % Potassium (3.5-5.1) mmol/L Chloride (98-107) mmol/L Carbon Dioxide (22-30) mmol/L Glucose (74-99) mg/dL POC Glucose (mg/dL) 245 H (75-99) mg/dL Calcium (8.4-10.2) mg/dL AST (14-36) U/L ALT (9-52) U/L Total Protein (6.3-8.2) g/dL Albumin (3.5-5.0) g/dL TSH 5.810 H (0.465-4.680) mIU/L Urine Appearance (Clear) Urine Protein (Negative) Urine Glucose (UA) (Negative) Urine Blood (Negative) Urine RBC (0-5) /hpf Urine WBC (0-5) /hpf Ur Squamous Epith Cells (0-4) /hpf Amorphous Sediment (None) /hpf Hyaline Casts (0-2) /lpf Urine Mucus (None) /hpf U Marijuana (THC) Screen (NotDetected) 09/24/17 09/24/17 09/24/17 Range/Units 00:37 04:09 04:09 WBC 20.1 H (3.8-10.6) k/uL Neutrophils # 18.3 H (1.3-7.7) k/uL Lymphocytes # 0.9 L (1.0-4.8) k/uL ABG pH (7.35-7.45) ABG pO2 (83-108) mmHg ABG O2 Saturation (94-97) % Potassium (3.5-5.1) mmol/L Chloride 109 H (98-107) mmol/L Carbon Dioxide 21 L (22-30) mmol/L Glucose 118 H (74-99) mg/dL POC Glucose (mg/dL) 193 H (75-99) mg/dL Calcium 8.2 L (8.4-10.2) mg/dL AST 97 H (14-36) U/L ALT 82 H (9-52) U/L Total Protein 5.5 L (6.3-8.2) g/dL Albumin 3.2 L (3.5-5.0) g/dL TSH (0.465-4.680) mIU/L Urine Appearance (Clear) Urine Protein (Negative) Urine Glucose (UA) (Negative) Urine Blood (Negative) Urine RBC (0-5) /hpf Urine WBC (0-5) /hpf Ur Squamous Epith Cells (0-4) /hpf Amorphous Sediment (None) /hpf Hyaline Casts (0-2) /lpf Urine Mucus (None) /hpf U Marijuana (THC) Screen (NotDetected) 09/24/17 Range/Units 04:39 WBC (3.8-10.6) k/uL Neutrophils # (1.3-7.7) k/uL Lymphocytes # (1.0-4.8) k/uL ABG pH (7.35-7.45) ABG pO2 189 H (83-108) mmHg ABG O2 Saturation 99.8 H (94-97) % Potassium (3.5-5.1) mmol/L Chloride (98-107) mmol/L Carbon Dioxide (22-30) mmol/L Glucose (74-99) mg/dL POC Glucose (mg/dL) (75-99) mg/dL Calcium (8.4-10.2) mg/dL AST (14-36) U/L ALT (9-52) U/L Total Protein (6.3-8.2) g/dL Albumin (3.5-5.0) g/dL TSH (0.465-4.680) mIU/L Urine Appearance (Clear) Urine Protein (Negative) Urine Glucose (UA) (Negative) Urine Blood (Negative) Urine RBC (0-5) /hpf Urine WBC (0-5) /hpf Ur Squamous Epith Cells (0-4) /hpf Amorphous Sediment (None) /hpf Hyaline Casts (0-2) /lpf Urine Mucus (None) /hpf U Marijuana (THC) Screen (NotDetected) Assessment and Plan Assessment: 52-year-old female presented due to V. fib arrest, was intubated in the ED due to obtundation and poor respiratory status. EKGs showed no ST segment elevation however suggested some prolonged QT cardiology evaluated her in the ED and raise concerns regarding her set patient received magnesium and potassium and was kept on amiodarone infusion. Report of history of heart failure by the family, however she does not take any medications for that at this. This will need to be verified further once family is available Plan: #Cardiac arrest secondary to V. fib arrest #Ventilator dependent respiratory failure secondary to cardiac arrest Possible torsade Electrolytes replaced Amiodarone infusion IV sedation Supportive care, normal saline IV fluid Continue to monitor electrolytes and replace as needed Check TSH Cardiology consult to evaluate for possible ACS Ventilator care ICU care #Elevated white count rule out infectious process Patient received 1 dose of Unasyn Blood cultures and urine culture and urinalysis sent sputum culture #DVT prophylaxis Heparin subcu 3 times a day CODE STATUS: Full code DVT prophylaxis: Heparin subcu 3 times a day Discussed with: ER, RN Anticipated discharge: 48-[address]: Pending clinical course A total of 55 minutes was spent on the care of this complex patient more than 50 % of the time was spent in counseling and care coordination.
[2017-09-24] MEDS: AMIODARONE 450 MG in DEXTROSE 5% IN WATER 250 ML IV SCH ×4 (07:00→21:14)
[2017-09-24] MEDS ORDERED: HEPARIN SODIUM,PORCINE 5,000 UNIT/ML 1 ML VIAL IV PRN (07:37)
[2017-09-24] MEDS ORDERED: HEPARIN SODIUM,PORCINE 5,000 UNIT/ML 1 ML VIAL IV ONE (08:00)
[2017-09-24] MEDS ORDERED: HEPARIN SODIUM,PORCINE 5,000 UNIT/ML 1 ML VIAL SQ SCH (08:00)
--- NOTE | 2017-09-24 08:21 | XR ---
EXAMINATION TYPE: XR chest 1V portable DATE OF EXAM: 09/24/2017 COMPARISON: Prior chest x-ray 09/23/2017 HISTORY: Intubated TECHNIQUE: Single frontal view of the chest is obtained. FINDINGS: Endotracheal and NG tube are overlying appropriate positions, NG tube has pulled back and the distal tip is overlying the thoracic esophagus level. Patient is rotated, no evident pneumothorax or pleural effusion. There are overlying cardiac leads. Heart size is stable. Patchy basilar density noted on the right. IMPRESSION: NG tube is described, report relayed to the intensive care unit staff at the time of int erpretation. Correlate for right lower lobe pneumonia.
[2017-09-24] MEDS: CHLORHEXIDINE GLUCONATE 15 ML CUP MUCOUS MEM SCH ×2 (09:37→20:09)
[2017-09-24] MEDS: METOPROLOL TARTRATE 5 MG/5 ML VIAL IVP SCH ×2 (09:39→16:20)
[2017-09-24] MEDS: HEPARIN SOD,PORK IN 0.45% NACL 25,000 UNIT in 0.45% NACL 1 500ML.BAG IV SCH (09:41)
[2017-09-24] MEDS ORDERED: SODIUM CHLORIDE 0.9% 250 ML IV ONE (09:45)
[2017-09-24] MEDS ORDERED: VANCOMYCIN IV PER PHARMACY 1 EACH MISC MISCELLANE PRN (10:04)
--- NOTE | 2017-09-24 10:11 | CONS ---
CONSULTATION Kiah Machado is a 52-year-old female who presented to the emergency room with cardiac arrest. Apparently, according to the ER note, the patient was found unresponsive at home with agonal respiration, pinpoint pupils. She had evidence of torsades and was cardioverted twice, came into the emergency room in sinus mechanism. No other history is obtained to me but there is a prior history of marijuana use but no other drug use. Once in the ICU today, there is no further episodes of arrhythmia. She continues to be in sinus mechanism. The patient continues to be on IV her amiodarone. Hemodynamically, she has been stable, but her pupils are fixed. She has no prior history available to me. There was no evidence of ST-segment elevation in the ER and no documented history of cardiac abnormalities available to me. MEDICATION: At home included multivitamin and ibuprofen on a p.r.n. basis. REVIEW OF SYSTEMS: Not obtained. PHYSICAL EXAMINATION: 52-year-old female, intubated and sedated. Blood pressure 92/60 with a heart rate in the 70s. HEAD: Normocephalic. Eyes sclerae are nonicteric. Pupils fixed and nonreactive. Neck good upstroke. No bruit. LUNGS: Clear to auscultation anteriorly. Heart regular rate and rhythm S1, S2. No S3, no S4. No rub. ABDOMEN: Soft. Positive bowel sounds. No organomegaly. EXTREMITIES: No edema. Intact distal pulses. LAB DATA: Revealed on presentation, a white blood cell count of 16.2, hemoglobin 14.9. BUN and creatinine of 9.8 and 0.9, potassium 3.1, AST of 188, ALT of 97. TSH 5.8. Troponin less than 0.012. Her toxicology was positive for marijuana. Subsequent lab work revealed a troponin 0.094. Her potassium 3.9. Her white blood cells are 20.1. Her chest x-ray, there is possibility of right infiltrate. Her rhythm strip revealed evidence of torsade. Her EKG revealed a sinus mechanism with a normal axis and intervals and nonspecific ST-T wave changes. IMPRESSION: 1. Cardiac arrest with torsades, etiology unclear. No evidence to suggest acute ischemic event. Her 2nd troponin remains minimally elevated. Her EKG shows no acute ST-segment changes. 2. Probable anoxic encephalopathy. RECOMMENDATION: From the cardiac standpoint, I will obtain echocardiogram with Doppler. I will start heparin for now. I started on IV beta cristina. Reviewed the results of her echo and her prior labs. We will await the input of the Neurology service and unfortunately the prognosis is quite poor. Thank you for this consult. We will follow with you. TORIN / MADISON: [id number] /
[2017-09-24] MEDS ORDERED: CEFEPIME 2 GM in SODIUM CHLORIDE 0.9% 50 ML IVPB SCH (10:30)
[2017-09-24] MEDS ORDERED: SODIUM CHLORIDE 0.9% 1,500 ML IV ONE (10:47)
[2017-09-24] MEDS ORDERED: VANCOMYCIN 1,250 MG in SODIUM CHLORIDE 0.9% 250 ML IVPB SCH ×2 (11:00→22:00)
[2017-09-24 12:14] LABS: Glucose,Whole Blood 110 mg/dL (75-99)
--- NOTE | 2017-09-24 12:17 | P.CNPUL ---
History of Present Illness Consult date: 09/24/17 Reason for consult: other (Acute cardiac arrest) Chief complaint: Cardiac arrest History of present illness: This is a 52-year-old female brought in to the ER by EMS in cardiac arrest. Apparently the patient was found unresponsive at home, and she had agonal breathing, pinpoint pupils, and evidence of torsade. Patient was cardioverted twice and upon arrival to the ER she was noted to be in sinus rhythm. Patient is known to have history of marijuana abuse. And no history of abuse of any other drugs. Patient was seen by cardiology, placed on amiodarone, and there was no evidence of any ischemic changes noted on the EKG. Cardiology felt that this is a cardiac arrest with torsade exact etiology was not clear. Troponins were noted to be slightly elevated. There was a bit of a concern about anoxic encephalopathy. Patient was on mechanical ventilation all along, and I evaluated the patient this morning, her blood pressure was noted to be low, given fluid boluses, pressure came up nicely, discontinued her lorazepam and her propofol drip, and awakened the patient within one hour. Evaluated the patient, she was arousable, and bit lethargic, but followed all instructions. There was no clear-cut evidence of any significant anoxic encephalopathy. Hence I plan to place the patient on a weaning mode utilizing a pressure support since the patient has a small endotracheal tube. If tolerated, and no arrhythmias noted, and the patient remains hemodynamically stable, I plan to extubate the patient hopefully today. Not much history can be obtained from the patient, but I was able to obtain a lot of information from the chart. Review of Systems Review of systems could not be obtained, patient is on mechanical ventilation, no family members available. ROS unobtainable: due to endotracheal tube Past Medical History Past Medical History: Heart Failure History of Any Multi-Drug Resistant Organisms: None Reported Past Surgical History: Section Past Psychological History: No Psychological Hx Reported Smoking Status: Unknown if ever smoked Past Alcohol Use History: Unable to Obtain Past Drug Use History: Unable to Obtain - Past Family History Family Additional Family Medical History / Comment(s): Unable to obtain patient intubated Medications and Allergies Home Medications Medication Instructions Recorded Confirmed Type Ibuprofen [Motrin] 600 mg PO BID PRN 02/23/17 09/24/17 History Multivitamins, Thera [Multivitamin 1 tab PO DAILY 02/23/17 09/24/17 History (formulary)] Allergies Allergy/AdvReac Type Severity Reaction Status Date / Time No Known Allergies Allergy Verified 02/23/17 09:30 Physical Exam Vitals: Vital Signs Temp Pulse Pulse Resp BP BP Pulse Ox 09/24/17 07:00 71 17 92/62 98 09/24/17 06:30 69 19 86/59 98 09/24/17 06:00 63 23 91/64 97 09/24/17 05:30 68 22 90/58 99 09/24/17 05:00 68 16 101/65 99 09/24/17 04:30 63 14 96/65 99 09/24/17 04:00 97.6 F 66 20 102/65 100 09/24/17 03:30 65 21 114/74 100 09/24/17 03:00 69 18 110/73 99 09/24/17 02:30 71 19 118/78 99 09/24/17 02:00 70 20 107/76 99 09/24/17 01:30 76 18 110/76 99 09/24/17 01:00 97.1 F L 80 17 109/74 98 09/24/17 00:38 81 09/24/17 00:12 92 20 110/74 100 09/24/17 00:03 102 H 24 129/79 100 09/23/17 23:29 94 26 H 132/86 95 09/23/17 23:27 96 24 125/66 100 09/23/17 23:15 108 H 24 140/83 100 09/23/17 23:07 94 22 108/76 99 09/23/17 23:04 110 H 20 127/81 100 09/23/17 23:02 114 H 182/107 100 09/23/17 23:00 116 H 20 179/107 100 09/23/17 22:56 116 H 26 H 179/107 100 09/23/17 22:47 114 H 26 H 199/115 100 09/23/17 22:19 88 26 H 123/79 100 09/23/17 22:12 86 106/67 100 09/23/17 22:03 97.3 F L 100 12 151/92 90 L Intake and Output 09/23/17 09/24/17 09/24/17 22:59 06:59 14:59 Intake Total 1118.510 203.428 Output Total 850 40 Balance 268.510 163.428 Intake: IV 900 100 0.9% NaCl with KCl 20 Meq 700 100 /l 1,000 ml @ 100 mls/hr IV .Q10H [facility] Rx#: [id number] Ampicillin-Sulbactam 3 gm 100 In Sodium Chloride 0.9% 100 ml @ 100 mls/hr IVPB ONCE STA Rx#:[id number] Potassium Chloride 10 meq 100 In Water For Injection 1 100ml.bag @ 100 mls/hr IVPB Q1H [facility] Rx#: [id number] Intake, IV Titration 218.510 103.428 Amount Amiodarone 450 mg In 208.907 Dextrose 5% in Water 250 ml @ 1 MG/MIN 34.53 mls/ hr IV .Q7H31M [facility] Rx#: [id number] LORazepam Vial 40 mg In 26.875 Dextrose 5% in Water 80 ml @ 1 MG/HR 2.5 mls/hr IV .Q24H [facility] Rx#: [id number] Propofol 1,000 mg In 2.18 Empty Bag 1 bag @ Titrate IV .Q0M [facility] Rx#: [id number] Propofol 1,000 mg In 7.423 76.553 Empty Bag 1 bag @ Titrate IV .Q0M [facility] Rx#: [id number] Output: Gastric Drainage 150 Urine 700 40 Other: Voiding Method Indwelling Catheter Indwelling Catheter # Bowel Movements 1 Weight 72.575 kg 72.5 kg Physical Exam: Revealed a 52-year-old female on mechanical ventilation, in no distress, Head: Atraumatic, normocephalic. HEENT:[Neck is supple.] [No neck masses.] [No thyromegaly.] [No JVD.] Moist mucous membranes, endotracheal tube seems to be intact. Chest: [Clear throughout, no crackles, no rhonchi, no wheezes.] Cardiac Exam: [Normal S1 and S2, no S3 gallop, no murmur.] Abdomen: [Soft, nontender, no megaly, no rebound, no guarding, normal bowel sounds.] Extremities: [No clubbing, no edema, no cyanosis.] Neurological Exam: [SS 12 the patient was on mechanical ventilation, she was arousable, followed simple instructions and moving all 4 extremities. Generally weak however. Psychiatric: Could not be assessed. Lymphatics: No lymphadenopathy. Musculoskeletal: Normal range of motion, no gross deficit, generalized weakness noted. Results - Laboratory Findings CBC and BMP: 09/24/17 04:09 09/24/17 04:09 ABG ABG pH 7.36 (7.35-7.45) 09/24/17 04:39 ABG pCO2 41 mmHg (35-45) 09/24/17 04:39 ABG pO2 189 mmHg (83-108) H 09/24/17 04:39 ABG O2 Saturation 99.8 % (94-97) H 09/24/17 04:39 PT/INR, D-dimer PT 10.4 sec (9.0-12.0) 09/24/17 04:09 INR 1.1 (<1.2) 09/24/17 04:09 Abnormal lab findings: Abnormal Labs 09/23/17 09/23/17 09/23/17 22:00 22:00 22:20 WBC 16.2 H Neutrophils # 9.7 H Lymphocytes # ABG pH ABG pO2 ABG O2 Saturation Potassium 3.1 L Chloride Carbon Dioxide 16 L Glucose 224 H POC Glucose (mg/dL) Calcium AST 188 H ALT 97 H Troponin I Total Protein Albumin TSH Urine Appearance Cloudy H Urine Protein 3+ H Urine Glucose (UA) 2+ H Urine Blood Small H Urine RBC 43 H Urine WBC 177 H Ur Squamous Epith Cells 8 H Amorphous Sediment Few H Hyaline Casts 58 H Urine Mucus Rare H U Marijuana (THC) Screen Detected H 09/23/17 09/23/17 09/24/17 22:24 23:27 00:00 WBC Neutrophils # Lymphocytes # ABG pH 7.30 L ABG pO2 250 H ABG O2 Saturation 100.0 H Potassium Chloride Carbon Dioxide Glucose POC Glucose (mg/dL) 245 H Calcium AST ALT Troponin I Total Protein Albumin TSH 5.810 H Urine Appearance Urine Protein Urine Glucose (UA) Urine Blood Urine RBC Urine WBC Ur Squamous Epith Cells Amorphous Sediment Hyaline Casts Urine Mucus U Marijuana (THC) Screen 09/24/17 09/24/17 09/24/17 00:37 04:09 04:09 WBC 20.1 H Neutrophils # 18.3 H Lymphocytes # 0.9 L ABG pH ABG pO2 ABG O2 Saturation Potassium Chloride 109 H Carbon Dioxide 21 L Glucose 118 H POC Glucose (mg/dL) 193 H Calcium 8.2 L AST 97 H ALT 82 H Troponin I Total Protein 5.5 L Albumin 3.2 L TSH Urine Appearance Urine Protein Urine Glucose (UA) Urine Blood Urine RBC Urine WBC Ur Squamous Epith Cells Amorphous Sediment Hyaline Casts Urine Mucus U Marijuana (THC) Screen 09/24/17 09/24/17 04:09 04:39 WBC Neutrophils # Lymphocytes # ABG pH ABG pO2 189 H ABG O2 Saturation 99.8 H Potassium Chloride Carbon Dioxide Glucose POC Glucose (mg/dL) Calcium AST ALT Troponin I 0.094 H* Total Protein Albumin TSH Urine Appearance Urine Protein Urine Glucose (UA) Urine Blood Urine RBC Urine WBC Ur Squamous Epith Cells Amorphous Sediment Hyaline Casts Urine Mucus U Marijuana (THC) Screen - Diagnostic Findings Chest x-ray: image reviewed (No evidence of active disease noted except for minimal atelectasis at the right base, could be early infiltrate secondary to aspiration pneumonia.) Assessment and Plan Assessment: Impression: 1: Acute hypoxic respiratory failure secondary to cardiac arrest secondary to cardiac arrhythmia, possible torsade. Exact etiology is not clear. 2: Acute aspiration pneumonia 3 acute leukocytosis secondary to aspiration pneumonia. 4 elevated troponin level secondary to cardiac arrest, rule out underlying coronary artery disease, patient is being followed by cardiology and addressing that issue itself. 5 acute hypotension, responded to holding narcotics and fluid boluses, strongly doubt sepsis. I believe the hypertension is secondary to hypovolemia and secondary to narcotics. However it didn't respond well to holding narcotics and sedatives, it also responded well to fluid boluses. Did not require any pressors. Recommendation: Continue present supportive care measures, I plan to wean the patient, she'll be given a weaning trial, spontaneous breathing trial, and we' ll likely proceed to extubation. However she will need to remain in the ICU at least for the next 24 hours. We'll continue to follow. In the meantime continue GI prophylaxis, continue amiodarone, continue empiric antibiotics, heparin. Critical care time is 45 minutes. Time with Patient: Greater than 30
--- NOTE | 2017-09-24 12:24 | ECHOF ---
Referral Reason:cardiac arrest MEASUREMENTS -------- HEIGHT: 165.1 cm WEIGHT: 72.1 kg BP: 74/49 RVIDd: 3.2 cm (< 3.3) IVSd: 1.0 cm (0.6 - 1.1) LVIDd: 4.2 cm (3.9 - 5.3) LVPWd: 1.2 cm (0.6 - 1.1) IVSs: 1.1 cm LVIDs: 4.0 cm LVPWs: 1.2 cm LAESV Index (A-L): 31.97 ml/m Ao Diam: 3.1 cm (2.0 - 3.7) AV Cusp: 1.6 cm (1.5 - 2.6) LA Diam: 3.5 cm (2.7 - 3.8) MV EXCURSION: 16.312 mm (> 18.000) MV EF SLOPE: 85 mm/s (70 - 150) EPSS: 1.1 cm MV E Darin: 0.55 m/s MV DecT: 262 ms MV A Darin: 0.68 m/s MV E/A Ratio: 0.80 RAP: 5.00 mmHg RVSP: 22.70 mmHg FINDINGS -------- Sinus rhythm. This was a technically adequate study. The left ventricular size is normal. Left ventricular wall thickness is normal. Overall left vent ricular systolic function is low-normal with, an EF between 50 - 55 %. The right ventricle is normal in size. The left atrial size is normal. LA is moderately dilated 34-39 ml/m2 The right atrial size is normal. There is mild aortic valve sclerosis. There is no evidence of aortic regurgitation. Mild mitral annular calcification present. Mild mitral regurgitation is present. Mild tricuspid regurgitation present. There is no evidence of pulmonary hypertension. The right v entricular systolic pressure, as measured by Doppler, is 22.70mmHg. There is no pulmonic regurgitation present. The aortic root size is normal. There is no pericardial effusion. CONCLUSIONS -------- 1. The left ventricular size is normal. 2. Left ventricular wall thickness is normal. 3. Overall left ventricular systolic function is low-normal with, an EF between 50 - 55 %. 4. The left atrial size is normal. 5. LA is moderately dilated 34-39 ml/m2 6. There is mild aortic valve sclerosis. 7. Mild mitral annular calcification present. 8. Mild mitral regurgitation is present. 9. Mild tricuspid regurgitation present. 10. There is no evidence of pulmonary hypertension. 11. The right ventricular systolic pressure, as measured by Doppler, is 22.70mmHg. 12. There is no pulmonic regurgitation present. 13. The aortic root size is normal. 14. There is no pericardial effusion. [employer]ISON GUARD SUPERVISOR: Madelyn Jones RDCS
[2017-09-24 12:54] LABS: Appearance,Urine Cloudy (Clear); Bilirubin,Urine Negative (Negative); Blood,Urine Large (Negative); Color,Urine Light Red; Glucose,Urine (UA) Negative (Negative); Ketones,Urine Negative (Negative); Leukocyte Esterase,Urine Moderate (Negative); Nitrite,Urine Negative (Negative); PH, Urine 5.5 (5.0-8.0); Protein,Urine Trace (Negative); RBC,Urine >182 /hpf (0-5); Specific Gravity,Urine 1.014 (1.001-1.035); Squamous Epithelial Cell,Urine 2 /hpf (0-4); Urobilinogen,Urine <2.0 mg/dL (<2.0); WBC,Urine 82 /hpf (0-5)
[2017-09-24] MEDS ORDERED: 0.9% NACL WITH KCL 20 MEQ/L 1,000 ML IV ONE (13:00)
--- NOTE | 2017-09-24 14:53 | P.CNNES ---
History of Present Illness Consult date: 09/24/17 Reason for Consult: This patient admitted with acute cardiac arrest to the ICU. History of Present Illness: This patient is a 52-year-old right-handed white female who presented to the emergency room with findings of acute episode of cardiac arrest with unresponsive state. Patient was at home and apparently was found by family as being unresponsive. She had developed agonal breathing. Her son was present and immediately started CPR and contacted EMS through 911. When EMS arrived the patient continued to have evidence of full cardiac arrest. Downtime was estimated to be at least 5-10 minutes. CPR was conducted for another 15-20 minutes. On initial evaluation the EMS personnel found the patient to be in cardiac arrest. She was cardioverted twice and was transferred to the emergency room [facility]. She was seen in the ER by Dr. Ni. She was showing signs of acute respiratory failure and was intubated and stabilized and sent for a computed tomography scan of the brain. CAT scan of the brain was completed and showed no acute abnormalities other than mild sinusitis. No evidence of acute stroke or hemorrhage. Patient was transferred to the intensive care unit. She had evidence of torsades at the time of cardioversion. Cardiology has been consulted for the patient and has seen her this morning and started her on IV heparin protocol. She did have slightly elevated troponins which are trending downwards. The patient was seen by pulmonary medicine earlier this morning. She showed signs of improvement after being taken off of Diprivan in terms of her level of consciousness. She was extubated this afternoon at 1:14 PM. Patient is now resting in the intensive care unit. She is unable to give much detail of the events of her collapse. She does have a history of cardiac failure in the past but is not been followed regularly in the cardiology clinic. Patient underwent an EKG which revealed no evidence of ST segment elevation. She is now extubated and is able to answer some simple questions. She does appear to be depressed and emotional and she did have some crying spells during her examination today. The patient states she has been very depressed after losing her recently. Her son has been very supportive for her. Apparently he was one that started CPR for her at home. She is now able to answer some simple questions. She denies any headache or focal weakness at this time. Her drug screen was only positive for marijuana however a formal extensive drug screen is still pending. Patient is being closely monitored for possibility of acute aspiration pneumonia. She denies any headache or neck stiffness at this time. As noted CAT scan of the brain was negative for any acute stroke or hemorrhage. The patient is now admitted and neurology has been consulted for further evaluation and recommendations. Review of Systems Constitutional: Denies chills, Denies fever Eyes: denies blurred vision, denies pain Ears, nose, mouth and throat: Denies headache, Denies sore throat Cardiovascular: Reports syncope, Denies chest pain, Denies shortness of breath Respiratory: Denies cough Gastrointestinal: Denies abdominal pain, Denies diarrhea, Denies nausea, Denies vomiting Genitourinary: Denies dysuria, Denies hematuria Musculoskeletal: Denies myalgias Integumentary: Denies pruritus, Denies rash Neurological: Reports change in mentation, Reports confusion, Reports syncope, Denies numbness, Denies weakness Psychiatric: Reports sadness/tearfulness, Denies anxiety, Denies depression Endocrine: Denies fatigue, Denies weight change Past Medical History Past Medical History: Heart Failure History of Any Multi-Drug Resistant Organisms: None Reported Past Surgical History: Section Past Psychological History: No Psychological Hx Reported Smoking Status: Unknown if ever smoked Past Alcohol Use History: Unable to Obtain Past Drug Use History: Unable to Obtain - Past Family History Family Additional Family Medical History / Comment(s): Unable to obtain patient intubated Medications and Allergies Home Medications Medication Instructions Recorded Confirmed Type Ibuprofen [Motrin] 600 mg PO BID PRN 02/23/17 09/24/17 History Multivitamins, Thera [Multivitamin 1 tab PO DAILY 02/23/17 09/24/17 History (formulary)] Allergies Allergy/AdvReac Type Severity Reaction Status Date / Time No Known Allergies Allergy Verified 02/23/17 09:30 Physical Examination - Vital Signs Vital Signs: Vital Signs Temp Pulse Pulse Resp BP BP Pulse Ox 09/24/17 07:00 71 17 92/62 98 09/24/17 06:30 69 19 86/59 98 09/24/17 06:00 63 23 91/64 97 09/24/17 05:30 68 22 90/58 99 09/24/17 05:00 68 16 101/65 99 09/24/17 04:30 63 14 96/65 99 09/24/17 04:00 97.6 F 66 20 102/65 100 09/24/17 03:30 65 21 114/74 100 09/24/17 03:00 69 18 110/73 99 09/24/17 02:30 71 19 118/78 99 09/24/17 02:00 70 20 107/76 99 09/24/17 01:30 76 18 110/76 99 09/24/17 01:00 97.1 F L 80 17 109/74 98 09/24/17 00:38 81 09/24/17 00:12 92 20 110/74 100 09/24/17 00:03 102 H 24 129/79 100 09/23/17 23:29 94 26 H 132/86 95 09/23/17 23:27 96 24 125/66 100 09/23/17 23:15 108 H 24 140/83 100 09/23/17 23:07 94 22 108/76 99 09/23/17 23:04 110 H 20 127/81 100 09/23/17 23:02 114 H 182/107 100 09/23/17 23:00 116 H 20 179/107 100 09/23/17 22:56 116 H 26 H 179/107 100 09/23/17 22:47 114 H 26 H 199/115 100 09/23/17 22:19 88 26 H 123/79 100 09/23/17 22:12 86 106/67 100 09/23/17 22:03 97.3 F L 100 12 151/92 90 L Intake and Output 09/23/17 09/24/17 09/24/17 22:59 06:59 14:59 Intake Total 1118.510 203.428 Output Total 850 40 Balance 268.510 163.428 Intake: IV 900 100 0.9% NaCl with KCl 20 Meq 700 100 /l 1,000 ml @ 100 mls/hr IV .Q10H [facility] Rx#: [id number] Ampicillin-Sulbactam 3 gm 100 In Sodium Chloride 0.9% 100 ml @ 100 mls/hr IVPB ONCE STA Rx#:[id number] Potassium Chloride 10 meq 100 In Water For Injection 1 100ml.bag @ 100 mls/hr IVPB Q1H [facility] Rx#: [id number] Intake, IV Titration 218.510 103.428 Amount Amiodarone 450 mg In 208.907 Dextrose 5% in Water 250 ml @ 1 MG/MIN 34.53 mls/ hr IV .Q7H31M ONE Rx#: [id number] LORazepam Vial 40 mg In 26.875 Dextrose 5% in Water 80 ml @ 1 MG/HR 2.5 mls/hr IV .[facility]24H [facility] Rx#: [id number] Propofol 1,000 mg In 2.18 Empty Bag 1 bag @ Titrate IV .Q0M ONE Rx#: [id number] Propofol 1,000 mg In 7.423 76.553 Empty Bag 1 bag @ Titrate IV .Q0M [facility] Rx#: [id number] Output: Gastric Drainage 150 Urine 700 40 Other: Voiding Method Indwelling Catheter Indwelling Catheter # Bowel Movements 1 Weight 72.575 kg 72.5 kg - Constitutional General appearance: average body habitus, cooperative - EENT EENT: PERRL, mucous membranes moist - Respiratory Respiratory: lungs clear, normal breath sounds - Cardiovascular Cardiovascular: regular rate, normal S1, normal S2 Extremities: no peripheral edema bilaterally - Gastrointestinal Gastrointestinal: normoactive bowel sounds - Integumentary Integumentary: normal - Neurologic Cranial nerve examination: PERRL, EOMI, VFF, V1/V2/V3 grossly intact, face symmetric, tongue midline, intact gag reflex, intact corneal reflex, normal palatal elevation Speech examination: intact Sensorimotor examination: intact Motor examination - right side: 4/5: biceps, triceps, wrist flexion, wrist extension, leather dresser, hip flexors, knee extensors, dorsiflexion, toe extension (EHL) , plantarflexion Motor examination - left side: 4/5: biceps, triceps, wrist flexion, wrist extension, leather dresser, hip flexors, knee extensors, dorsiflexion, toe extension (EHL) , plantarflexion Detailed sensory examination: intact Reflex and gait examination: intact Reflexes: 1+: ankle, bicep, knee, tricep - Musculoskeletal Musculoskeletal: no pain - Psychiatric Psychiatric: mood/affect appropriate Results - Laboratory Findings CBC and BMP: 09/24/17 04:09 09/24/17 04:09 Abnormal Lab Findings: Abnormal Labs 09/23/17 09/23/17 09/23/17 22:00 22:00 22:20 WBC 16.2 H Neutrophils # 9.7 H Lymphocytes # ABG pH ABG pO2 ABG O2 Saturation Potassium 3.1 L Chloride Carbon Dioxide 16 L Glucose 224 H POC Glucose (mg/dL) Calcium AST 188 H ALT 97 H Troponin I Total Protein Albumin TSH Urine Appearance Cloudy H Urine Protein 3+ H Urine Glucose (UA) 2+ H Urine Blood Small H Ur Leukocyte Esterase Urine RBC 43 H Urine WBC 177 H Ur Squamous Epith Cells 8 H Amorphous Sediment Few H Hyaline Casts 58 H Urine Mucus Rare H U Marijuana (THC) Screen Detected H 09/23/17 09/23/17 09/24/17 22:24 23:27 00:00 WBC Neutrophils # Lymphocytes # ABG pH 7.30 L ABG pO2 250 H ABG O2 Saturation 100.0 H Potassium Chloride Carbon Dioxide Glucose POC Glucose (mg/dL) 245 H Calcium AST ALT Troponin I Total Protein Albumin TSH 5.810 H Urine Appearance Urine Protein Urine Glucose (UA) Urine Blood Ur Leukocyte Esterase Urine RBC Urine WBC Ur Squamous Epith Cells Amorphous Sediment Hyaline Casts Urine Mucus U Marijuana (THC) Screen 09/24/17 09/24/17 09/24/17 00:37 04:09 04:09 WBC 20.1 H Neutrophils # 18.3 H Lymphocytes # 0.9 L ABG pH ABG pO2 ABG O2 Saturation Potassium Chloride 109 H Carbon Dioxide 21 L Glucose 118 H POC Glucose (mg/dL) 193 H Calcium 8.2 L AST 97 H ALT 82 H Troponin I Total Protein 5.5 L Albumin 3.2 L TSH Urine Appearance Urine Protein Urine Glucose (UA) Urine Blood Ur Leukocyte Esterase Urine RBC Urine WBC Ur Squamous Epith Cells Amorphous Sediment Hyaline Casts Urine Mucus U Marijuana (THC) Screen 09/24/17 09/24/17 09/24/17 04:09 04:39 10:00 WBC Neutrophils # Lymphocytes # ABG pH ABG pO2 189 H ABG O2 Saturation 99.8 H Potassium Chloride Carbon Dioxide Glucose POC Glucose (mg/dL) Calcium AST ALT Troponin I 0.094 H* 0.047 H* Total Protein Albumin TSH Urine Appearance Urine Protein Urine Glucose (UA) Urine Blood Ur Leukocyte Esterase Urine RBC Urine WBC Ur Squamous Epith Cells Amorphous Sediment Hyaline Casts Urine Mucus U Marijuana (THC) Screen 09/24/17 09/24/17 12:00 12:12 WBC Neutrophils # Lymphocytes # ABG pH ABG pO2 ABG O2 Saturation Potassium Chloride Carbon Dioxide Glucose POC Glucose (mg/dL) 110 H Calcium AST ALT Troponin I Total Protein Albumin TSH Urine Appearance Cloudy H Urine Protein Trace H Urine Glucose (UA) Urine Blood Large H Ur Leukocyte Esterase Moderate H Urine RBC >182 H Urine WBC 82 H Ur Squamous Epith Cells Amorphous Sediment Hyaline Casts Urine Mucus U Marijuana (THC) Screen Assessment and Plan (1) Cardiac arrest Current Visit: Yes Status: Acute Code(s): I46.9 - CARDIAC ARREST, CAUSE UNSPECIFIED SNOMED Code(s): 957804497 (2) Acute encephalopathy Current Visit: Yes Status: Acute Code(s): G93.40 - ENCEPHALOPATHY, UNSPECIFIED SNOMED Code(s): 63582252 (3) Torsades de pointes Current Visit: Yes Status: Acute Code(s): I47.2 - VENTRICULAR TACHYCARDIA SNOMED Code(s): 43739661 (4) Ventricular fibrillation Current Visit: Yes Status: Acute Code(s): I49.01 - VENTRICULAR FIBRILLATION SNOMED Code(s): 78036123 Plan: This patient is a 52-year-old right-handed white female who was admitted to hospital after suffering acute cardiac arrest with torsades of unclear etiology. Patient was intubated due to respiratory failure in the emergency room and transferred to the intensive care unit for further management. She was extubated this afternoon and is now seen in the ICU for episode of acute cardiac arrest with respiratory failure. Patient has a history of heart failure in the past. She is seen by cardiology today and is been started on IV heparin protocol. We're waiting for the recommendations from cardiology. Patient was extubated and is able to answer questions now fairly well. She is tearful and depressed. Her neurological examination at this time is nonfocal. She has evidence suggesting a mild acute hypoxic encephalopathy that is resolved following her recent cardiac arrest. Her downtime was estimated to be about 5 minutes and she really required cardioversion 2 as she was in ventricular fibrillation. She is now back into normal sinus rhythm and rare waiting further evaluation and recommendations from cardiology. Patient denies any previous history of seizures or stroke. Computed tomography scan of the brain failed to reveal any acute changes of stroke or hemorrhage. She was extubated this afternoon and is able to follow simple commands. We will continue to follow her progress closely during this admission. Her neurological examination otherwise is nonfocal at this time. Her overall prognosis at this time remains guarded. We will continue close neurological follow-up with this patient in the intensive care unit. Time with Patient: Less than 30
--- NOTE | 2017-09-24 16:12 | P.PN ---
Subjective Progress Note Date: 09/24/17 Patient intubated and sedated. Apparently has not been waking up since the propofol has been turned off secondary to hypotension. Patient previously on Ativan drip and propofol drip for sedation after the patient presented here after she had V. fib arrest prior prior to arrival in the ED. Apparently ACLS was performed and she was defibrillated twice prior to return of spontaneous circulation. Patient was seen by cardiology there is some concern of possible torsades she did have a prolonged QT. Objective - Vital Signs Vital signs: Vital Signs Temp 97.6 F 09/24/17 04:00 Pulse 71 09/24/17 07:00 Resp 17 09/24/17 07:00 BP 92/62 09/24/17 07:00 Pulse Ox 98 09/24/17 07:00 Intake & Output 09/23/17 09/24/17 09/24/17 18:59 06:59 18:59 Intake Total 1118.510 203.428 Output Total 850 40 Balance 268.510 163.428 Weight 72.5 kg Intake: IV 900 100 0.9% NaCl with KCl 20 Meq 700 100 /l 1,000 ml @ 100 mls/hr IV .Q10H [facility] Rx#: [id number] Ampicillin-Sulbactam 3 gm 100 In Sodium Chloride 0.9% 100 ml @ 100 mls/hr IVPB ONCE STA Rx#:[id number] Potassium Chloride 10 meq 100 In Water For Injection 1 100ml.bag @ 100 mls/hr IVPB Q1H [facility] Rx#: [id number] Intake, IV Titration 218.510 103.428 Amount Amiodarone 450 mg In 208.907 Dextrose 5% in Water 250 ml @ 1 MG/MIN 34.53 mls/ hr IV .Q7H31M [facility] Rx#: [id number] LORazepam Vial 40 mg In 26.875 Dextrose 5% in Water 80 ml @ 1 MG/HR 2.5 mls/hr IV .Q24H [facility] Rx#: [id number] Propofol 1,000 mg In 2.18 Empty Bag 1 bag @ Titrate IV .Q0M [facility] Rx#: [id number] Propofol 1,000 mg In 7.423 76.553 Empty Bag 1 bag @ Titrate IV .Q0M [facility] Rx#: [id number] Output: Gastric Drainage 150 Urine 700 40 Other: Voiding Method Indwelling Catheter # Bowel Movements 1 - Exam Constitutional: No acute distress, conversant, pleasant Eyes: Anicteric sclerae, moist conjunctiva, no lid-lag, PERRLA ENMT: NC/AT,Oropharynx clear, no erythema, exudates Neck:Supple, FROM, no masses, or JVD, No carotid bruits; No thyromegaly Lungs: Clear to auscultation, Clear to percussion, Normal respiratory effort, no accessory muscle use Cardiovascular: Heart regular in rate and rhythm, No murmurs, gallops, or rubs no peripheral edema Abdominal: Soft Nontender, nom distended, no guarding, no rebound or rigidity, Normoactive bowel sounds No hepatomegaly, No splenomegaly, No palpable mass No abdominal wall hernia noted Skin: Normal temperature, tone, texture, turgor, No induration No subcutaneous nodules, No rash, lesions, No ulcers Extremities:No digital cyanosis No clubbing, Pedal pulses intact and symmetrical Radial pulses intact and symmetrical Normal gait and station, No calf tenderness Neuro: Patient unresponsive, on a ventilator and intubated, sedation turned off secondary to hypoyension - Labs CBC & Chem 7: 09/24/17 04:09 09/24/17 04:09 Labs: Abnormal Lab Results - Last 24 Hours (Table) 09/23/17 09/23/17 09/23/17 Range/Units 22:00 22:00 22:20 WBC 16.2 H (3.8-10.6) k/uL Neutrophils # 9.7 H (1.3-7.7) k/uL Lymphocytes # (1.0-4.8) k/uL ABG pH (7.35-7.45) ABG pO2 (83-108) mmHg ABG O2 Saturation (94-97) % Potassium 3.1 L (3.5-5.1) mmol/L Chloride (98-107) mmol/L Carbon Dioxide 16 L (22-30) mmol/L Glucose 224 H (74-99) mg/dL POC Glucose (mg/dL) (75-99) mg/dL Calcium (8.4-10.2) mg/dL AST 188 H (14-36) U/L ALT 97 H (9-52) U/L Troponin I (0.000-0.034) ng/mL Total Protein (6.3-8.2) g/dL Albumin (3.5-5.0) g/dL TSH (0.465-4.680) mIU/L Urine Appearance Cloudy H (Clear) Urine Protein 3+ H (Negative) Urine Glucose (UA) 2+ H (Negative) Urine Blood Small H (Negative) Ur Leukocyte Esterase (Negative) Urine RBC 43 H (0-5) /hpf Urine WBC 177 H (0-5) /hpf Ur Squamous Epith Cells 8 H (0-4) /hpf Amorphous Sediment Few H (None) /hpf Hyaline Casts 58 H (0-2) /lpf Urine Mucus Rare H (None) /hpf U Marijuana (THC) Screen Detected H (NotDetected) 09/23/17 09/23/17 09/24/17 Range/Units 22:24 23:27 00:00 WBC (3.8-10.6) k/uL Neutrophils # (1.3-7.7) k/uL Lymphocytes # (1.0-4.8) k/uL ABG pH 7.30 L (7.35-7.45) ABG pO2 250 H (83-108) mmHg ABG O2 Saturation 100.0 H (94-97) % Potassium (3.5-5.1) mmol/L Chloride (98-107) mmol/L Carbon Dioxide (22-30) mmol/L Glucose (74-99) mg/dL POC Glucose (mg/dL) 245 H (75-99) mg/dL Calcium (8.4-10.2) mg/dL AST (14-36) U/L ALT (9-52) U/L Troponin I (0.000-0.034) ng/mL Total Protein (6.3-8.2) g/dL Albumin (3.5-5.0) g/dL TSH 5.810 H (0.465-4.680) mIU/L Urine Appearance (Clear) Urine Protein (Negative) Urine Glucose (UA) (Negative) Urine Blood (Negative) Ur Leukocyte Esterase (Negative) Urine RBC (0-5) /hpf Urine WBC (0-5) /hpf Ur Squamous Epith Cells (0-4) /hpf Amorphous Sediment (None) /hpf Hyaline Casts (0-2) /lpf Urine Mucus (None) /hpf U Marijuana (THC) Screen (NotDetected) 09/24/17 09/24/17 09/24/17 Range/Units 00:37 04:09 04:09 WBC 20.1 H (3.8-10.6) k/uL Neutrophils # 18.3 H (1.3-7.7) k/uL Lymphocytes # 0.9 L (1.0-4.8) k/uL ABG pH (7.35-7.45) ABG pO2 (83-108) mmHg ABG O2 Saturation (94-97) % Potassium (3.5-5.1) mmol/L Chloride 109 H (98-107) mmol/L Carbon Dioxide 21 L (22-30) mmol/L Glucose 118 H (74-99) mg/dL POC Glucose (mg/dL) 193 H (75-99) mg/dL Calcium 8.2 L (8.4-10.2) mg/dL AST 97 H (14-36) U/L ALT 82 H (9-52) U/L Troponin I (0.000-0.034) ng/mL Total Protein 5.5 L (6.3-8.2) g/dL Albumin 3.2 L (3.5-5.0) g/dL TSH (0.465-4.680) mIU/L Urine Appearance (Clear) Urine Protein (Negative) Urine Glucose (UA) (Negative) Urine Blood (Negative) Ur Leukocyte Esterase (Negative) Urine RBC (0-5) /hpf Urine WBC (0-5) /hpf Ur Squamous Epith Cells (0-4) /hpf Amorphous Sediment (None) /hpf Hyaline Casts (0-2) /lpf Urine Mucus (None) /hpf U Marijuana (THC) Screen (NotDetected) 09/24/17 09/24/17 09/24/17 Range/Units 04:09 04:39 10:00 WBC (3.8-10.6) k/uL Neutrophils # (1.3-7.7) k/uL Lymphocytes # (1.0-4.8) k/uL ABG pH (7.35-7.45) ABG pO2 189 H (83-108) mmHg ABG O2 Saturation 99.8 H (94-97) % Potassium (3.5-5.1) mmol/L Chloride (98-107) mmol/L Carbon Dioxide (22-30) mmol/L Glucose (74-99) mg/dL POC Glucose (mg/dL) (75-99) mg/dL Calcium (8.4-10.2) mg/dL AST (14-36) U/L ALT (9-52) U/L Troponin I 0.094 H* 0.047 H* (0.000-0.034) ng/mL Total Protein (6.3-8.2) g/dL Albumin (3.5-5.0) g/dL TSH (0.465-4.680) mIU/L Urine Appearance (Clear) Urine Protein (Negative) Urine Glucose (UA) (Negative) Urine Blood (Negative) Ur Leukocyte Esterase (Negative) Urine RBC (0-5) /hpf Urine WBC (0-5) /hpf Ur Squamous Epith Cells (0-4) /hpf Amorphous Sediment (None) /hpf Hyaline Casts (0-2) /lpf Urine Mucus (None) /hpf U Marijuana (THC) Screen (NotDetected) 09/24/17 09/24/17 Range/Units 12:00 12:12 WBC (3.8-10.6) k/uL Neutrophils # (1.3-7.7) k/uL Lymphocytes # (1.0-4.8) k/uL ABG pH (7.35-7.45) ABG pO2 (83-108) mmHg ABG O2 Saturation (94-97) % Potassium (3.5-5.1) mmol/L Chloride (98-107) mmol/L Carbon Dioxide (22-30) mmol/L Glucose (74-99) mg/dL POC Glucose (mg/dL) 110 H (75-99) mg/dL Calcium (8.4-10.2) mg/dL AST (14-36) U/L ALT (9-52) U/L Troponin I (0.000-0.034) ng/mL Total Protein (6.3-8.2) g/dL Albumin (3.5-5.0) g/dL TSH (0.465-4.680) mIU/L Urine Appearance Cloudy H (Clear) Urine Protein Trace H (Negative) Urine Glucose (UA) (Negative) Urine Blood Large H (Negative) Ur Leukocyte Esterase Moderate H (Negative) Urine RBC >182 H (0-5) /hpf Urine WBC 82 H (0-5) /hpf Ur Squamous Epith Cells (0-4) /hpf Amorphous Sediment (None) /hpf Hyaline Casts (0-2) /lpf Urine Mucus (None) /hpf U Marijuana (THC) Screen (NotDetected) Microbiology - Last 24 Hours (Table) 09/23/17 23:59 Gram Stain - Preliminary Sputum Sputum Culture - Preliminary 09/24/17 00:01 Urine Culture - Preliminary Urine,Catheterized Assessment and Plan (1) Acute encephalopathy Narrative/Plan: * CT of the head negative for any acute infarct or hemorrhage * Likely anoxic brain injury status post cardiac arrest * Neurology consulted, propofol sedation turned off. Patient currently intubated for ventilatory support post cardiac arrest, pulmonology following planning to perform weaning trial next B patient Current Visit: Yes Status: Acute Code(s): G93.40 - ENCEPHALOPATHY, UNSPECIFIED SNOMED Code(s): 45354201 (2) Cardiac arrest Narrative/Plan: * Status post ACLS and 2 episodes of defibrillation now with return of spontaneous circulation * Patient recently hypotensive in the ICU, Ativan drip and propofol have been turned off * Currently receiving bolus, we'll check a lactate acid level continue to monitor closely with concern for cardiogenic shock * Patient initiated on heparin drip secondary to elevation of her troponins, cardiology following appreciate recommendations Current Visit: Yes Status: Acute Code(s): I46.9 - CARDIAC ARREST, CAUSE UNSPECIFIED SNOMED Code(s): 300999071 (3) Sepsis Narrative/Plan: * Secondary to UTI and pneumonia * Patient hypotensive initially responding to bolus, lactate level pending, We' ll check blood culture and urine culture * given concern for torsades will initiate antibiotic regimen with cefepime and vancomycin, will consult ID for further recommendations Current Visit: Yes Status: Acute Code(s): A41.9 - SEPSIS, UNSPECIFIED ORGANISM SNOMED Code(s): 78063461 (4) Pneumonia Narrative/Plan: * Antibiotic regimen as above Current Visit: Yes Status: Acute Code(s): J18.9 - PNEUMONIA, UNSPECIFIED ORGANISM SNOMED Code(s): 782238987 (5) Urinary tract infection Narrative/Plan: * Antibiotic regimen as above Current Visit: Yes Status: Acute Code(s): N39.0 - URINARY TRACT INFECTION, SITE NOT SPECIFIED SNOMED Code(s): 27300657
[2017-09-24] MEDS: AMPICILLIN-SULBACTAM 3 GM in SODIUM CHLORIDE 0.9% 100 ML IVPB SCH ×2 (16:17→20:08)
[2017-09-24 17:34] LABS: Glucose,Whole Blood 97 mg/dL (75-99)
[2017-09-24] MEDS: ALPRAZolam 0.5 MG TAB PO PRN (18:01)
[2017-09-24] MEDS ORDERED: LORazepam 2 MG/ML INJ IV PRN (19:05)
[2017-09-24] MEDS ORDERED: LORazepam 2 MG/ML INJ ONE (19:07)
[2017-09-24] MEDS: HALOPERIDOL LACTATE 5 MG/ML 1 ML VIAL IM PRN (19:30)
[2017-09-24 21:29] LABS: Urine Alcohol Negative (Negative); Urine Barbiturate Negative (Negative); Urine Cocaine Negative (Negative); Urine Methadone Negative (Negative); Urine Opiates Negative (Negative); Urine Phencyclidine Negative (Negative)
--- NOTE | 2017-09-24 23:20 | CONS ---
CONSULTATION DATE OF SERVICE: 09/24/2017 REASON FOR CONSULTATION: Antibiotic recommendation. HISTORY OF PRESENT ILLNESS: The patient is a 52-year-old female who apparently was found unresponsive by the family, down for about 5 minutes. EMS was called. On arrival, EMS noted the patient to have agonal respirations, pinpoint pupils. She was found to be in ventricular fibrillation arrest. The patient did have defibrillation twice by the EMS. Patient did return to normal sinus rhythm. She received 4 mg of Narcan, with some improvement in respiration. Subsequently patient was intubated and rushed to the [facility] ER. The patient had a CT of the brain with no acute bleed, mild sinusitis. Initial x- ray on 09/23 showed no heart failure. Lungs were clear of infiltrate. However, repeat x-ray was showing evidence of a right lower lobe pneumonia. The patient did receive a dose of Unasyn in the ER. Subsequently she was started on cefazolin and vancomycin. Currently in the ICU. Infectious Disease was consulted for further recommendation regarding antibiotic therapy. Most of this information has been obtained from prior review of the chart and talking to the nursing staff, as the patient is currently unresponsive on the vent and unable to provide any reliable history. REVIEW OF SYSTEMS: Review of systems could not be obtained, though the positive ones have been mentioned in HPI. PAST MEDICAL HISTORY: Significant for heart failure. PAST SURGICAL HISTORY: . SOCIAL HISTORY: Positive for marijuana use. No history of IV drug use or drinking. FAMILY HISTORY: No pertinent findings on the chart. ALLERGIES: NO KNOWN DRUG ALLERGIES. CURRENT MEDICATIONS: 1. Xanax. 2. Amiodarone. 3. Cefepime. 4. Vancomycin, Pharmacy to dose. 5. Haldol. 6. Heparin. 7. Ativan. 8. Lopressor. 9. Narcan. 10.Propofol. PHYSICAL EXAMINATION: Blood pressure is 116/81, pulse of 82, temperature of 97.6. She is 99% on 40% FiO2. General description is a middle-aged female intubated on the vent. HEENT examination shows no pallor or scleral icterus. Patient is orally intubated on examination of oral cavity. NECK: Trachea is central. No thyromegaly. LUNGS: Unlabored breathing with decreased breath sounds in the bases. No wheeze. HEART: S1, S2. Regular rate and rhythm. ABDOMEN: Soft. No tenderness. No guarding or rigidity. EXTREMITIES: No edema of the feet. SKIN EXAMINATION: No rash or mass palpable. Neurologically patient is currently sedated on the vent. LABS: Hemoglobin 12.8, white count 20,000. BUN of 10, creatinine 0.60. Electrolytes have been normal. Liver enzymes are slightly elevated. Urine has been positive. Urine drug screen positive for marijuana. X-ray report as mentioned above. DIAGNOSTIC IMPRESSION AND PLAN: 1. Patient with acute respiratory failure in a patient who did have cardiac arrest at home, status post resuscitation with initial x-ray negative, repeat showing right lower lobe pneumonia, likely an aspiration pneumonia in a patient with no clear history of recent antibiotic exposure; it could be a sensitive pathogen. 2. Patient with elevated liver enzymes and history of drug use. Will check a hepatitis panel to make sure there is no evidence of any chronic hepatitis C. 3. The patient does have significantly positive UA, likely a urinary tract infection from enteric Gram-negative pathogen. PLAN: 1. Discontinue the cefepime. 2. We will start the patient on Unasyn 3 grams q.6 hours. 3. Check hepatitis panel. 4. Will follow up on the clinical condition and culture to further adjust medication if needed. Thank you for this consultation. Will follow this patient along with you. MMODL / IJN: [id number] /
[2017-09-24 23:53] LABS: Glucose,Whole Blood 93 mg/dL (75-99)
[2017-09-25] MEDS: METOPROLOL TARTRATE 5 MG/5 ML VIAL IVP SCH ×2 (01:30→12:01)
[2017-09-25] MEDS: AMPICILLIN-SULBACTAM 3 GM in SODIUM CHLORIDE 0.9% 100 ML IVPB SCH ×4 (01:33→21:18)
[2017-09-25 01:55] LABS: Hemoglobin A1C 5.3 % (4.0-6.0)
[2017-09-25 04:25] LABS: ALT 48 U/L (9-52); AST 47 U/L (14-36); Albumin 2.7 g/dL (3.5-5.0); Alkaline Phosphatase 71 U/L (38-126); Anion Gap 8 mmol/L; Blood Urea Nitrogen 8 mg/dL (7-17); Calcium 8.5 mg/dL (8.4-10.2); Carbon Dioxide 19 mmol/L (22-30); Chloride 114 mmol/L (98-107); Glucose 92 mg/dL (74-99); Magnesium 1.7 mg/dL (1.6-2.3); Phosphorus 2.5 mg/dL (2.5-4.5); Potassium 4.9 mmol/L (3.5-5.1); Sodium 141 mmol/L (137-145); Total Bilirubin 0.4 mg/dL (0.2-1.3); Total Protein 4.8 g/dL (6.3-8.2)
[2017-09-25 04:38] LABS: Basophils % (A) 0 %; Eosinophils # (A) 0.1 k/uL (0-0.7); Eosinophils % (A) 1 %; HCT 33.9 % (34.0-46.0); Lymphocytes # (A) 1.9 k/uL (1.0-4.8); Lymphocytes % (A) 15 %; MCHC 32.4 g/dL (31.0-37.0); MCV 95.7 fL (80.0-100.0); Mean Platelet Volume 7.8; Monocytes # (A) 0.7 k/uL (0-1.0); Monocytes % (A) 5 %; Neutrophils # (A) 9.7 k/uL (1.3-7.7); Neutrophils % (A) 77 %; Platelet Count 209 k/uL (150-450); RBC 3.55 m/uL (3.80-5.40); RDW 13.6 % (11.5-15.5); WBC 12.6 k/uL (3.8-10.6)
[2017-09-25] MEDS ORDERED: Magnesium Replacement Protocol 1 EACH MISC MISCELLANE PRN (04:48)
[2017-09-25] MEDS: 0.9% NACL WITH KCL 20 MEQ/L 1,000 ML IV SCH ×4 (05:06→19:57)
[2017-09-25] MEDS: MAGNESIUM SULFATE-D5W PMX 1 GM in DEXTROSE/WATER 1 100ML.BAG IVPB SCH ×2 (05:06→06:34)
--- NOTE | 2017-09-25 08:26 | PN ---
PROGRESS NOTE Ms. Machado is a 52-year-old female with questionable history of CHF in the past, who was admitted with cardiac arrest and torsade, underwent cardioversion and gnosticism of normal sinus rhythm. She was intubated. She is extubated today, awake, is confused at times. Hemodynamically stable. There is no evidence of ventricular ectopic activity. No evidence of any significant arrhythmia. Hemodynamically, she is stable on no pressors. She cannot recall any of the event and is not aware of what happened. She has not seen a physician in a long time. At this time, she is on the IV amiodarone, IV heparin and IV Lopressor. PHYSICAL EXAMINATION: Her blood pressure is 105/80 with the heart rate in the 60s. LUNGS: Clear. HEART: Regular rate and rhythm. S1, S2. No S3. No rub. ABDOMEN: Soft, nontender. Positive bowel sounds. No organomegaly. EXTREMITIES: No edema. Intact distal pulses. LAB DATA: Lab data revealed BUN and creatinine of 8 and 0.7. Her AST is 47, ALT is 48. Her echo revealed an ejection fraction of 50% to 55% with no significant valvular abnormalities. IMPRESSION: 1. Cardiac arrest with torsade, etiology unclear. Patient has no clear evidence to suggest an ischemic event. Her left ventricular systolic function is preserved. The list of her medication is still not available to me, so it is unclear if she has taken any medication that will affect her QT interval. Her QT interval at this time is stable. 2. History of smoking. 3. History of marijuana use. RECOMMENDATION: From the cardiac standpoint, I will switch her to oral amiodarone as well as oral beta cristina. I will continue the heparin. The minimal elevation of troponin does not reflect any acute coronary syndrome. I will observe for the next 24 hours. Patient would require cardiac catheterization to rule out any ischemic etiology to her arrhythmia, although less likely. We will try to obtain the list of all her medication from the family to guide her treatment. MMODL / IJN: [id number] /
--- NOTE | 2017-09-25 08:43 | XR ---
EXAMINATION TYPE: XR chest 1V portable DATE OF EXAM: 09/25/2017 COMPARISON: 09/24/2017 HISTORY: Tube placement TECHNIQUE: Single frontal view of the chest is obtained. FINDINGS: Marked right hilar prominence noted with right basilar subsegmental consolidation and tiny effusions. No pneumothorax or overt failure. ET and NG tube have been removed. Curvature the spine w ith degenerative changes noted. IMPRESSION: 1. ET and NG tube removal with bibasilar subsegmental atelectasis or infiltrate. 2. Marked right hilar soft tissue prominence.
[2017-09-25] MEDS: AMIODARONE 200 MG TAB PO SCH ×2 (08:56→21:18)
[2017-09-25] MEDS: METOPROLOL TARTRATE 25 MG TAB PO SCH ×2 (08:57→21:18)
[2017-09-25] MEDS ORDERED: cefTRIAXone IN SWFI 1,000 MG/10 ML SYRINGE IVP SCH (09:00)
[2017-09-25] MEDS ORDERED: ASPIRIN 81 MG PO SCH (09:00)
[2017-09-25] MEDS: HEPARIN SOD,PORK IN 0.45% NACL 25,000 UNIT in 0.45% NACL 1 500ML.BAG IV SCH (09:16)
[2017-09-25] MEDS ORDERED: RX INFO: IV CONTRAST WAS GIVEN 1 EACH MISC MISCELLANE PRN (09:47)
--- NOTE | 2017-09-25 11:07 | P.PN ---
Subjective Progress Note Date: 09/25/17 Principal diagnosis: Acute hypoxic respiratory failure secondary to cardiac arrest. This is a 52-year-old female brought in to the ER by EMS in cardiac arrest. Apparently the patient was found unresponsive at home, and she had agonal breathing, pinpoint pupils, and evidence of torsade. Patient was cardioverted twice and upon arrival to the ER she was noted to be in sinus rhythm. Patient is known to have history of marijuana abuse. And no history of abuse of any other drugs. Patient was seen by cardiology, placed on amiodarone, and there was no evidence of any ischemic changes noted on the EKG. Cardiology felt that this is a cardiac arrest with torsade exact etiology was not clear. Troponins were noted to be slightly elevated. There was a bit of a concern about anoxic encephalopathy. Patient was on mechanical ventilation all along, and I evaluated the patient this morning, her blood pressure was noted to be low, given fluid boluses, pressure came up nicely, discontinued her lorazepam and her propofol drip, and awakened the patient within one hour. Evaluated the patient, she was arousable, and bit lethargic, but followed all instructions. There was no clear-cut evidence of any significant anoxic encephalopathy. Hence I plan to place the patient on a weaning mode utilizing a pressure support since the patient has a small endotracheal tube. If tolerated, and no arrhythmias noted, and the patient remains hemodynamically stable, I plan to extubate the patient hopefully today. Not much history can be obtained from the patient, but I was able to obtain a lot of information from the chart. Patient was reevaluated today on 09/25/2017, patient was extubated yesterday basically couple of hours after I rounded on her. Patient was awakened, given a short the pressure support and CPAP trial, and proceeded to extubating the patient. She has done quite well over the last 24 hours, patient had episodes of agitation last night to given Xanax and Ativan. Today she is a bit slow, but she is appropriate. Still cannot recall the exact events of what actually happened yesterday. Patient told me that she does not abuse any drugs, and she does not drink any alcohol, she had no previous similar episodes in the past. The drug screen came back positive however for amphetamine, benzodiazepine, and cannabinoids. Today's labs showed relatively normal CBC however her hemoglobin is down to 11. PTT remains at 53.7 therapeutic, basic metabolic profile is relatively normal, bicarb however is 19, renal profile is normal. Considering the electrolytes, and considering the elevated pH and the urine, we may be dealing with a picture of renal tubular acidosis. At this point, this has no clinical significance. Chest x-ray today showed a right hilar fullness, continues to have a right lower lobe opacity, remains on antibiotics for presumptive aspiration. However considering the right hilar fullness, and the presentation, I felt it would be worthwhile looking further into this by doing a CT of the chest. That is to evaluate for possible thromboembolic disease since we have no clear-cut explanation of what truly happened to this patient on presentation. And at the same time we will evaluate the right hilar fullness. And put the patient to address. In the meantime, the patient remains on heparin. Objective - Vital Signs Vital signs: Vital Signs Temp 97.8 F 09/25/17 08:00 Pulse 51 L 09/25/17 10:00 Resp 18 09/25/17 10:00 BP 114/74 09/25/17 10:00 Pulse Ox 99 09/25/17 10:00 Intake & Output 09/24/17 09/25/17 09/25/17 18:59 06:59 18:59 Intake Total 3181.608 2987.127 1271.023 Output Total 983 675 380 Balance 2198.608 2312.127 891.023 Weight 77.1 kg Intake: IV 500 2550 800 0.9% NaCl with KCl 20 Meq 400 /l 1,000 ml @ 100 mls/hr IV .Q10H [facility] Rx#: [id number] 0.9% NaCl with KCl 20 Meq 2200 800 /l 1,000 ml @ 200 mls/hr IV .Q5H [facility] Rx#:[id number] Ampicillin-Sulbactam 3 gm 100 100 In Sodium Chloride 0.9% 100 ml @ 100 mls/hr IVPB ONCE [facility] Rx#:[id number] Vancomycin 1,250 mg In 250 Sodium Chloride 0.9% 250 ml @ 125 mls/hr IVPB Q8H [facility] Rx#:[id number] Intake, IV Titration 2681.608 437.127 391.023 Amount 0.9% NaCl with KCl 20 Meq 1600 200 /l 1,000 ml @ 200 mls/hr IV .Q5H [facility] Rx#:[id number] Amiodarone 450 mg In 237.127 Dextrose 5% in Water 250 ml @ 0.5 MG/MIN 16.66 mls /hr IV .Q15H1M [facility] Rx#: [id number] Ampicillin-Sulbactam 3 gm 37.5 In Sodium Chloride 0.9% 100 ml @ 100 mls/hr IVPB Q6H [facility] Rx#:[id number] Heparin Sod,Pork in 0.45% 128.18 353.523 NaCl 25,000 unit In 0.45 % NaCl 1 500ml.bag @ 12 UNITS/KG/HR 17.4 mls/hr IV .Q24H [facility] Rx#: [id number] LORazepam Vial 40 mg In 26.875 Dextrose 5% in Water 80 ml @ 1 MG/HR 2.5 mls/hr IV .Q24H [facility] Rx#: [id number] Propofol 1,000 mg In 76.553 Empty Bag 1 bag @ Titrate IV .Q0M [facility] Rx#: [id number] Sodium Chloride 0.9% 1, 100 000 ml @ 999 mls/hr IV . Q1H1M [facility] Rx#:[id number] Sodium Chloride 0.9% 250 250 ml @ 999 mls/hr IV .Q16M [facility] Rx#:[id number] Sodium Chloride 0.9% 500 500 ml @ 999 mls/hr IV .Q31M [facility] Rx#:[id number] Oral 80 Output: Urine 983 675 380 Other: Voiding Method Indwelling Catheter Indwelling Catheter - Exam Physical Exam: Revealed a 52-year-old female in no distress. Head: Atraumatic, normocephalic. Eyes: PERRLA, EOMI, no icterus. HEENT:[Neck is supple.] [No neck masses.] [No thyromegaly.] [No JVD.] Chest: [Minimal fine crackles at the right base, no rhonchi, no wheezes.] Symmetrical chest expansion, no chest wall tenderness. Cardiac Exam: [Normal S1 and S2, no S3 gallop, no murmur.] Abdomen: [Soft, nontender, no megaly, no rebound, no guarding, normal bowel sounds.] Extremities: [No clubbing, no edema, no cyanosis.] Neurological Exam: [No focal neurologic deficit.] Lymphatics: No lymphadenopathy. - Labs CBC & Chem 7: 09/25/17 03:52 09/25/17 03:52 Labs: Abnormal Lab Results - Last 24 Hours (Table) 09/24/17 09/24/17 09/24/17 Range/Units 10:00 12:00 12:00 WBC (3.8-10.6) k/uL RBC (3.80-5.40) m/uL Hgb (11.4-16.0) gm/dL Hct (34.0-46.0) % Neutrophils # (1.3-7.7) k/uL APTT (22.0-30.0) sec Chloride (98-107) mmol/L Carbon Dioxide (22-30) mmol/L POC Glucose (mg/dL) (75-99) mg/dL AST (14-36) U/L Troponin I 0.047 H* (0.000-0.034) ng/mL Total Protein (6.3-8.2) g/dL Albumin (3.5-5.0) g/dL Urine Appearance Cloudy H (Clear) Urine Protein Trace H (Negative) Urine Blood Large H (Negative) Ur Leukocyte Esterase Moderate H (Negative) Urine RBC >182 H (0-5) /hpf Urine WBC 82 H (0-5) /hpf Ur Amphetamine Screen Positive H (Negative) ng/mL U Benzodiazepines Scrn Positive H (Negative) ng/mL U Cannabinoids Screen Positive H (Negative) ng/mL 09/24/17 09/24/17 09/24/17 Range/Units 12:12 16:14 22:50 WBC (3.8-10.6) k/uL RBC (3.80-5.40) m/uL Hgb (11.4-16.0) gm/dL Hct (34.0-46.0) % Neutrophils # (1.3-7.7) k/uL APTT 36.5 H 54.5 H (22.0-30.0) sec Chloride (98-107) mmol/L Carbon Dioxide (22-30) mmol/L POC Glucose (mg/dL) 110 H (75-99) mg/dL AST (14-36) U/L Troponin I (0.000-0.034) ng/mL Total Protein (6.3-8.2) g/dL Albumin (3.5-5.0) g/dL Urine Appearance (Clear) Urine Protein (Negative) Urine Blood (Negative) Ur Leukocyte Esterase (Negative) Urine RBC (0-5) /hpf Urine WBC (0-5) /hpf Ur Amphetamine Screen (Negative) ng/mL U Benzodiazepines Scrn (Negative) ng/mL U Cannabinoids Screen (Negative) ng/mL 09/25/17 09/25/17 09/25/17 Range/Units 03:52 03:52 03:52 WBC 12.6 H (3.8-10.6) k/uL RBC 3.55 L (3.80-5.40) m/uL Hgb 11.0 L (11.4-16.0) gm/dL Hct 33.9 L (34.0-46.0) % Neutrophils # 9.7 H (1.3-7.7) k/uL APTT 53.7 H (22.0-30.0) sec Chloride 114 H (98-107) mmol/L Carbon Dioxide 19 L (22-30) mmol/L POC Glucose (mg/dL) (75-99) mg/dL AST 47 H (14-36) U/L Troponin I (0.000-0.034) ng/mL Total Protein 4.8 L (6.3-8.2) g/dL Albumin 2.7 L (3.5-5.0) g/dL Urine Appearance (Clear) Urine Protein (Negative) Urine Blood (Negative) Ur Leukocyte Esterase (Negative) Urine RBC (0-5) /hpf Urine WBC (0-5) /hpf Ur Amphetamine Screen (Negative) ng/mL U Benzodiazepines Scrn (Negative) ng/mL U Cannabinoids Screen (Negative) ng/mL Microbiology - Last 24 Hours (Table) 09/24/17 10:15 Nasal Screen MRSA/MSSA ([facility]) - Preliminary Nasal Swab 09/24/17 12:00 Urine Culture - Preliminary Urine,Catheterized 09/23/17 23:59 Gram Stain - Preliminary Sputum Sputum Culture - Preliminary 09/24/17 00:01 Urine Culture - Preliminary Urine,Catheterized Assessment and Plan Assessment: Impression: 1: Acute hypoxic respiratory failure secondary to cardiac arrest secondary to cardiac arrhythmia, possible torsade. Exact etiology is not clear. 2: Acute aspiration pneumonia 3 acute leukocytosis secondary to aspiration pneumonia. 4 elevated troponin level secondary to cardiac arrest, rule out underlying coronary artery disease, patient is being followed by cardiology and addressing that issue itself. 5 acute hypotension, responded to holding narcotics and fluid boluses, strongly doubt sepsis. I believe the hypertension is secondary to hypovolemia and secondary to narcotics. However it didn't respond well to holding narcotics and sedatives, it also responded well to fluid boluses. Did not require any pressors. 6 right hilar fullness, hence a CT angiogram of the chest will be done today, and the purpose would be looking into the hilar fullness and possibly evaluating for thromboembolic disease. Recommendation: Continue present supportive care measures, discussed her condition with the assistant manager trainee, may eventually require cardiac catheterization. I will keep the patient in the ICU today, continue antibiotics for presumptive aspiration pneumonia, CT angiogram of the chest was ordered, and we'll continue to follow. Time with Patient: Less than 30
[2017-09-25 11:57] LABS: Glucose,Whole Blood 85 mg/dL (75-99)
[2017-09-25] MEDS: CHLORHEXIDINE GLUCONATE 15 ML CUP MUCOUS MEM SCH (12:01)
[2017-09-25 12:48] LABS: Hepatitis A Ab, Total Non-Reactive (Non-Reactive); Hepatitis C IgG Antibody Non-Reactive (Non-Reactive)
--- NOTE | 2017-09-25 13:05 | PN ---
PROGRESS NOTE DATE OF SERVICE: 09/25/2017 REASON FOR FOLLOWUP: Possible aspiration pneumonia. INTERVAL HISTORY: The patient is afebrile. She has been extubated. slightly positive this morning and some occasional cough. No nausea or vomiting. No abdominal pain. No diarrhea. PHYSICAL EXAMINATION: On examination, blood pressure 109/73, pulse of 50, temperature 97.7. She is 99% on 2 L nasal cannula. General description is a middle aged female lying in bed in no distress. RESPIRATORY SYSTEM: Unlabored breathing, coarse breath sounds at the bases bilaterally. HEART: S1, S2. Regular rate and rhythm. ABDOMEN: Soft, no tenderness. EXTREMITIES: No edema of the feet. LABS: Hemoglobin is 11, white count 12.6, BUN of 8, creatinine 0.70. Sputum cultures were pending. DIAGNOSTIC IMPRESSION AND PLAN: Patient with right lower lobe pneumonia. Patient admitted to the hospital after cardiac arrest at home, status post resuscitation with concern for possible aspiration pneumonia. She is currently covered with Unasyn that will be continued, adjusting further on the bases of the culture report. Continue supportive care. MMODL / IJN: [id number] /
--- NOTE | 2017-09-25 13:46 | CT ---
EXAMINATION TYPE: CT chest angio for PE DATE OF EXAM: 09/25/2017 COMPARISON: CT chest March 25, 2010 HISTORY: V-Fib arrest rule out pulmonary embolism CT DLP: 596 mGycm. Automated Exposure Control for Dose Reduction was Utilized. CONTRAST: CTA scan of the thorax is performed with IV Contrast, patient injected with 100 mL of Isovue 370, pul monary embolism protocol. MIP Images are created on CT scanner and reviewed. FINDINGS: Current exam is suboptimal as there is respiratory motion artifact LUNGS: There are tiny bilateral pleural effusions with associated compressive atelectasis. There is b ilateral hilar consolidation extending into the central lower lobes. No pneumothorax is seen bilatera lly. MEDIASTINUM: There is satisfactory enhancement of the pulmonary artery and its branches, there is no CT evidence for pulmonary embolism. There are no greater than 1 cm hilar or mediastinal lymph nodes. No cardiomegaly or pericardial effusion is seen. There is 4 vessel origin from aortic arch which i s normal variant redemonstrated. Some reflux of contrast into IVC and hepatic veins is present.. Righ t atrium is mildly dilated. OTHER: There is partial visualization of abnormal fluid surrounding gallbladder fossa dependent densi ty possible gallbladder sludge. Slight S-shaped scoliosis is seen. Multilevel spurring and spine is p resent. Prominent splenule in splenic hilum is again seen. Small amount of fluid surrounds upper pole level of right kidney. Nonspecific finding. There is new moderate periportal edema which is nonspeci fic finding IMPRESSION: 1. No CT evidence for acute pulmonary embolism. 2. New tiny bilateral pleural effusions. There is bilateral hilar consolidation with central bilatera l lower lobe extension. 3. There is moderate periportal edema, nonspecific finding. There is suspected gallbladder sludge wit h fluid surrounding gallbladder. Consider ultrasound follow-up.
--- NOTE | 2017-09-25 16:26 | P.PN ---
Subjective Progress Note Date: 09/25/17 Patient is somnolent but arousable, has no significant complaints she denies shortness of breath, she denies chest pain or abdominal pain. Apparently the patient's blood pressures have been more stable since yesterday, no adverse events overnight Objective - Vital Signs Vital signs: Vital Signs Temp 97.8 F 09/25/17 16:00 Pulse 66 09/25/17 16:00 Resp 33 H 09/25/17 16:00 BP 158/93 09/25/17 16:00 Pulse Ox 99 09/25/17 16:00 Intake & Output 09/24/17 09/25/17 09/25/17 18:59 06:59 18:59 Intake Total 3181.608 2987.127 2778.167 Output Total 983 675 877 Balance 2198.608 2312.127 1901.167 Weight 77.1 kg Intake: IV 500 2550 2000 0.9% NaCl with KCl 20 Meq 400 /l 1,000 ml @ 100 mls/hr IV .Q10H [facility] Rx#: [id number] 0.9% NaCl with KCl 20 Meq 2200 2000 /l 1,000 ml @ 200 mls/hr IV .Q5H [facility] Rx#:[id number] Ampicillin-Sulbactam 3 gm 100 100 In Sodium Chloride 0.9% 100 ml @ 100 mls/hr IVPB ONCE [facility] Rx#:[id number] Vancomycin 1,250 mg In 250 Sodium Chloride 0.9% 250 ml @ 125 mls/hr IVPB Q8H [facility] Rx#:[id number] Intake, IV Titration 2681.608 437.127 698.167 Amount 0.9% NaCl with KCl 20 Meq 1600 200 /l 1,000 ml @ 200 mls/hr IV .Q5H [facility] Rx#:[id number] Amiodarone 450 mg In 237.127 194.644 Dextrose 5% in Water 250 ml @ 0.5 MG/MIN 16.66 mls /hr IV .Q15H1M [facility] Rx#: [id number] Ampicillin-Sulbactam 3 gm 150.0 In Sodium Chloride 0.9% 100 ml @ 100 mls/hr IVPB Q6H [facility] Rx#:[id number] Heparin Sod,Pork in 0.45% 128.18 353.523 NaCl 25,000 unit In 0.45 % NaCl 1 500ml.bag @ 12 UNITS/KG/HR 17.4 mls/hr IV .Q24H [facility] Rx#: [id number] LORazepam Vial 40 mg In 26.875 Dextrose 5% in Water 80 ml @ 1 MG/HR 2.5 mls/hr IV .Q24H [facility] Rx#: [id number] Propofol 1,000 mg In 76.553 Empty Bag 1 bag @ Titrate IV .Q0M [facility] Rx#: [id number] Sodium Chloride 0.9% 1, 100 000 ml @ 999 mls/hr IV . Q1H1M [facility] Rx#:[id number] Sodium Chloride 0.9% 250 250 ml @ 999 mls/hr IV .Q16M [facility] Rx#:[id number] Sodium Chloride 0.9% 500 500 ml @ 999 mls/hr IV .Q31M [facility] Rx#:[id number] Oral 80 Output: Urine 983 675 877 Other: Voiding Method Indwelling Catheter Indwelling Catheter Indwelling Catheter - Exam Constitutional: No acute distress, conversant, pleasant Eyes: Anicteric sclerae, moist conjunctiva, no lid-lag, PERRLA ENMT: NC/AT,Oropharynx clear, no erythema, exudates Neck:Supple, FROM, no masses, or JVD, No carotid bruits; No thyromegaly Lungs: Clear to auscultation, Clear to percussion, Normal respiratory effort, no accessory muscle use Cardiovascular: Heart regular in rate and rhythm, No murmurs, gallops, or rubs no peripheral edema Abdominal: Soft Nontender, nom distended, no guarding, no rebound or rigidity, Normoactive bowel sounds No hepatomegaly, No splenomegaly, No palpable mass No abdominal wall hernia noted Skin: Normal temperature, tone, texture, turgor, No induration No subcutaneous nodules, No rash, lesions, No ulcers Extremities:No digital cyanosis No clubbing, Pedal pulses intact and symmetrical Radial pulses intact and symmetrical Normal gait and station, No calf tenderness Neuro: Patient unresponsive, on a ventilator and intubated, sedation turned off secondary to hypoyension - Labs CBC & Chem 7: 09/25/17 03:52 09/25/17 03:52 Labs: Abnormal Lab Results - Last 24 Hours (Table) 09/24/17 09/24/17 09/24/17 Range/Units 12:00 16:14 22:50 WBC (3.8-10.6) k/uL RBC (3.80-5.40) m/uL Hgb (11.4-16.0) gm/dL Hct (34.0-46.0) % Neutrophils # (1.3-7.7) k/uL APTT 36.5 H 54.5 H (22.0-30.0) sec Chloride (98-107) mmol/L Carbon Dioxide (22-30) mmol/L AST (14-36) U/L Total Protein (6.3-8.2) g/dL Albumin (3.5-5.0) g/dL Ur Amphetamine Screen Positive H (Negative) ng/mL U Benzodiazepines Scrn Positive H (Negative) ng/mL U Cannabinoids Screen Positive H (Negative) ng/mL 09/25/17 09/25/17 09/25/17 Range/Units 03:52 03:52 03:52 WBC 12.6 H (3.8-10.6) k/uL RBC 3.55 L (3.80-5.40) m/uL Hgb 11.0 L (11.4-16.0) gm/dL Hct 33.9 L (34.0-46.0) % Neutrophils # 9.7 H (1.3-7.7) k/uL APTT 53.7 H (22.0-30.0) sec Chloride 114 H (98-107) mmol/L Carbon Dioxide 19 L (22-30) mmol/L AST 47 H (14-36) U/L Total Protein 4.8 L (6.3-8.2) g/dL Albumin 2.7 L (3.5-5.0) g/dL Ur Amphetamine Screen (Negative) ng/mL U Benzodiazepines Scrn (Negative) ng/mL U Cannabinoids Screen (Negative) ng/mL Microbiology - Last 24 Hours (Table) 09/23/17 23:59 Gram Stain - Preliminary Sputum Sputum Culture - Preliminary Kierra sp,not albicans/galbr 09/24/17 00:01 Urine Culture - Final Urine,Catheterized 09/24/17 10:38 Blood Culture - Preliminary Blood No Growth after 24 hours 09/24/17 10:19 Blood Culture - Preliminary Blood No Growth after 24 hours 09/24/17 10:15 Nasal Screen MRSA/MSSA ([facility]) - Preliminary Nasal Swab 09/24/17 12:00 Urine Culture - Preliminary Urine,Catheterized Assessment and Plan (1) Acute encephalopathy Narrative/Plan: * CT of the head negative for any acute infarct or hemorrhage * Likely anoxic brain injury status post cardiac arrest * Neurology consulted, propofol sedation turned off. Patient currently intubated for ventilatory support post cardiac arrest, pulmonology following planning to perform weaning trial next B patient Current Visit: Yes Status: Acute Code(s): G93.40 - ENCEPHALOPATHY, UNSPECIFIED SNOMED Code(s): 89780072 (2) Cardiac arrest Narrative/Plan: * Status post ACLS and 2 episodes of defibrillation now with return of spontaneous circulation * Initially received bolus, we'll check a lactate acid level continue to monitor closely with concern for cardiogenic shock * Continue on amiodarone * Patient initiated on heparin drip secondary to elevation of her troponins, now normlaized heparin discontinued * cardiology following appreciate recommendations Current Visit: Yes Status: Acute Code(s): I46.9 - CARDIAC ARREST, CAUSE UNSPECIFIED SNOMED Code(s): 721124619 (3) Sepsis Narrative/Plan: * Secondary to UTI and possible aspiration pneumonia versus possible acute cholecystitis * Patient afebrile leukocytosis trending down nicely * Patient currently normotensive and responded well to her fluid challenges yesterday, lactic acid normal, We'll check blood culture and urine culture pending * given concern for torsades will initiate antibiotic regimen with cefepime and vancomycin, will consult ID for further recommendations * Appreciated ID recommendations cefepime and vancomycin discontinued continue with Unasyn * CTA of the chest and negative for PE but showing bilateral hilar consolidation with central bilateral lower lobe extension, with suspected gallbladder sludge with fluid surrounding gallbladder * plan to get a right upper quadrant ultrasound to rule out acute cholecystitis Current Visit: Yes Status: Acute Code(s): A41.9 - SEPSIS, UNSPECIFIED ORGANISM SNOMED Code(s): 96770256 (4) Pneumonia Narrative/Plan: * Antibiotic regimen as above Current Visit: Yes Status: Acute Code(s): J18.9 - PNEUMONIA, UNSPECIFIED ORGANISM SNOMED Code(s): 607075216 (5) Urinary tract infection Narrative/Plan: * Antibiotic regimen as above Current Visit: Yes Status: Acute Code(s): N39.0 - URINARY TRACT INFECTION, SITE NOT SPECIFIED SNOMED Code(s): 02648092
--- NOTE | 2017-09-25 19:44 | P.PN ---
Subjective Progress Note Date: 09/25/17 This patient is a 52-year-old female who was seen yesterday in neurology consultation for evaluation of cardiac arrest and altered mental status following extubation. Patient was extubated yesterday and was showing signs of slight improvement in her overall mental mental status. She was found to have evidence of possible aspiration pneumonia involving the right lower lobe. Infectious disease was consulted yesterday and the patient is currently being covered with Unasyn for treatment of aspiration pneumonia. The exact etiology of her cardiac arrest with torsades remains unclear. Cardiology continues to follow her closely. Her left ventricular systolic function has been shown to be preserved. It is unclear of her exact medication list which is being reviewed by cardiology as to possible etiology for her cardiac arrest. Patient is being switched to oral amiodarone as well as oral beta cristina today by cardiology. She is to continue on heparin. This been a slight elevation of troponins and cardiology will monitor. Patient may require cardiac catheterization to rule out any ischemic etiology for her cardiac arrhythmia. According to her ICU nursing staff she is being considered for a cardiac catheterization on of this week. She was sent for a CTA angiogram of the chest which came back negative for pulmonary embolism. We will await further recommendations from cardiology. Patient neurologically is more awake today but still gets episodes of somnolence. This evening she does seem to answer questions more appropriately in her speech is much improved as compared to yesterday. We will continue close neurological follow-up for the patient during this admission. We will await further recommendations were multiple consultants addressing this patient in the intensive care unit. Objective - Vital Signs Vital signs: Vital Signs Temp 97.8 F 09/25/17 16:00 Pulse 66 09/25/17 16:00 Resp 33 H 09/25/17 16:00 BP 158/93 09/25/17 16:00 Pulse Ox 99 09/25/17 16:00 Intake & Output 09/24/17 09/25/17 09/25/17 18:59 06:59 18:59 Intake Total 3181.608 2987.127 2778.167 Output Total 983 675 877 Balance 2198.608 2312.127 1901.167 Weight 77.1 kg Intake: IV 500 2550 2000 0.9% NaCl with KCl 20 Meq 400 /l 1,000 ml @ 100 mls/hr IV .Q10H [facility] Rx#: [id number] 0.9% NaCl with KCl 20 Meq 2200 2000 /l 1,000 ml @ 200 mls/hr IV .Q5H [facility] Rx#:[id number] Ampicillin-Sulbactam 3 gm 100 100 In Sodium Chloride 0.9% 100 ml @ 100 mls/hr IVPB ONCE [facility] Rx#:[id number] Vancomycin 1,250 mg In 250 Sodium Chloride 0.9% 250 ml @ 125 mls/hr IVPB Q8H [facility] Rx#:[id number] Intake, IV Titration 2681.608 437.127 698.167 Amount 0.9% NaCl with KCl 20 Meq 1600 200 /l 1,000 ml @ 200 mls/hr IV .Q5H [facility] Rx#:[id number] Amiodarone 450 mg In 237.127 194.644 Dextrose 5% in Water 250 ml @ 0.5 MG/MIN 16.66 mls /hr IV .Q15H1M [facility] Rx#: [id number] Ampicillin-Sulbactam 3 gm 150.0 In Sodium Chloride 0.9% 100 ml @ 100 mls/hr IVPB Q6H [facility] Rx#:[id number] Heparin Sod,Pork in 0.45% 128.18 353.523 NaCl 25,000 unit In 0.45 % NaCl 1 500ml.bag @ 12 UNITS/KG/HR 17.4 mls/hr IV .Q24H [facility] Rx#: [id number] LORazepam Vial 40 mg In 26.875 Dextrose 5% in Water 80 ml @ 1 MG/HR 2.5 mls/hr IV .Q24H [facility] Rx#: [id number] Propofol 1,000 mg In 76.553 Empty Bag 1 bag @ Titrate IV .Q0M [facility] Rx#: [id number] Sodium Chloride 0.9% 1, 100 000 ml @ 999 mls/hr IV . Q1H1M [facility] Rx#:[id number] Sodium Chloride 0.9% 250 250 ml @ 999 mls/hr IV .Q16M [facility] Rx#:[id number] Sodium Chloride 0.9% 500 500 ml @ 999 mls/hr IV .Q31M [facility] Rx#:[id number] Oral 80 Output: Urine 983 675 877 Other: Voiding Method Indwelling Catheter Indwelling Catheter Indwelling Catheter - Exam Physical examination: PHYSICAL EXAMINATION: Patient is resting comfortably in bed. VITAL SIGNS: Blood pressure is [158/93]. Heart rate is [67]. Respiration is [30] . Temperature is [97.8]. HEENT: Head is atraumatic, neck is supple, there were no carotid bruits. CHEST: Lungs are clear to auscultation and percussion. CARDIAC: S1, S2 normal rate and rhythm. There is no murmur. ABDOMEN: Soft and nontender. Bowel sounds are present. EXTREMITIES: There is no pedal edema. Peripheral pulses are present. Neurological examination: Patient has a nonfocal neurological examination today. - Labs CBC & Chem 7: 09/25/17 03:52 09/25/17 03:52 Labs: Abnormal Lab Results - Last 24 Hours (Table) 09/24/17 09/24/17 09/25/17 Range/Units 12:00 22:50 03:52 WBC 12.6 H (3.8-10.6) k/uL RBC 3.55 L (3.80-5.40) m/uL Hgb 11.0 L (11.4-16.0) gm/dL Hct 33.9 L (34.0-46.0) % Neutrophils # 9.7 H (1.3-7.7) k/uL APTT 54.5 H (22.0-30.0) sec Chloride (98-107) mmol/L Carbon Dioxide (22-30) mmol/L AST (14-36) U/L Total Protein (6.3-8.2) g/dL Albumin (3.5-5.0) g/dL Ur Amphetamine Screen Positive H (Negative) ng/mL U Benzodiazepines Scrn Positive H (Negative) ng/mL U Cannabinoids Screen Positive H (Negative) ng/mL 09/25/17 09/25/17 Range/Units 03:52 03:52 WBC (3.8-10.6) k/uL RBC (3.80-5.40) m/uL Hgb (11.4-16.0) gm/dL Hct (34.0-46.0) % Neutrophils # (1.3-7.7) k/uL APTT 53.7 H (22.0-30.0) sec Chloride 114 H (98-107) mmol/L Carbon Dioxide 19 L (22-30) mmol/L AST 47 H (14-36) U/L Total Protein 4.8 L (6.3-8.2) g/dL Albumin 2.7 L (3.5-5.0) g/dL Ur Amphetamine Screen (Negative) ng/mL U Benzodiazepines Scrn (Negative) ng/mL U Cannabinoids Screen (Negative) ng/mL Microbiology - Last 24 Hours (Table) 09/24/17 12:00 Urine Culture - Final Urine,Catheterized 09/23/17 23:59 Gram Stain - Preliminary Sputum Sputum Culture - Preliminary Kierra sp,not albicans/galbr 09/24/17 00:01 Urine Culture - Final Urine,Catheterized 09/24/17 10:38 Blood Culture - Preliminary Blood No Growth after 24 hours 09/24/17 10:19 Blood Culture - Preliminary Blood No Growth after 24 hours 09/24/17 10:15 Nasal Screen MRSA/MSSA ([facility]) - Preliminary Nasal Swab Assessment and Plan (1) Cardiac arrest Current Visit: Yes Status: Acute Code(s): I46.9 - CARDIAC ARREST, CAUSE UNSPECIFIED SNOMED Code(s): 267085245 (2) Acute encephalopathy Current Visit: Yes Status: Acute Code(s): G93.40 - ENCEPHALOPATHY, UNSPECIFIED SNOMED Code(s): 74707011 (3) Torsades de pointes Current Visit: Yes Status: Acute Code(s): I47.2 - VENTRICULAR TACHYCARDIA SNOMED Code(s): 57061888 (4) Ventricular fibrillation Current Visit: Yes Status: Acute Code(s): I49.01 - VENTRICULAR FIBRILLATION SNOMED Code(s): 56583653 Plan: This patient is a 52-year-old female who suffered an acute cardiac arrest with torsades and was initially intubated and admitted to the intensive care unit. She was extubated yesterday and is being closely followed for signs of anoxic/ hypoxic encephalopathy following cardiac arrest. Today she has shown improvement in her overall mental status. She is being evaluated by cardiology and is scheduled to undergo a cardiac catheterization on of this week for further evaluation. She had a CT angiogram of the chest today which came back negative for pulmonary embolus. Her neurological examination today is non- focal. She denies any headache or focal weakness. She is being sent for a ultrasound of the gallbladder as there was some sludge detected in the biliary tree. Overall the patient is showing improvement in her overall mental status. We will follow along with cardiology in terms of her management of acute cardiac arrest of unknown etiology. Her overall prognosis at this time remains guarded. We will continue close follow-up with this patient in the intensive care unit.
--- NOTE | 2017-09-25 19:45 | US ---
EXAMINATION TYPE: US abdomen limited DATE OF EXAM: 09/25/2017 COMPARISON: NONE CLINICAL HISTORY: Rule out acute cholecystitis . RUQ pain EXAM MEASUREMENTS: Liver Length: 19.9 cm Gallbladder Wall: 0.7 cm CBD: 0.7 cm Right Kidney: 10.8 x 4.1 x 4.0 cm Pancreas: Obscured by bowel gas Liver: Some free fluid visualized.Hepatomegaly. Gallbladder: Thickened wall with pericholecystic fluid visualized.No stones seen. Evidence for sonographic Rosario's sign: No CBD: dilated Right Kidney: No hydronephrosis or masses seen Thickened gallbladder wall with pericholecystic fluid. CBD is dilated and hepatomegaly. IMPRESSION: Thickened gallbladder wall with pericholecystic fluid consistent with cholecystitis. No d ilated ducts. Hepatomegaly.
[2017-09-25] MEDS ORDERED: KETOROLAC 30 MG/ML 1 ML VIAL IVP STA (22:25)
[2017-09-26 00:04] LABS: Glucose,Whole Blood 86 mg/dL (75-99)
[2017-09-26] MEDS: 0.9% NACL WITH KCL 20 MEQ/L 1,000 ML IV SCH ×5 (02:23→20:48)
[2017-09-26] MEDS: AMPICILLIN-SULBACTAM 3 GM in SODIUM CHLORIDE 0.9% 100 ML IVPB SCH ×4 (02:24→19:08)
[2017-09-26] MEDS: ALPRAZolam 0.5 MG TAB PO PRN (02:43)
[2017-09-26] MEDS ORDERED: ALPRAZolam 0.25 MG TAB PO PRN (07:01)
[2017-09-26] MEDS ORDERED: NITROGLYCERIN SL TABS 0.4 MG TAB SUBLINGUAL PRN (07:01)
[2017-09-26] MEDS ORDERED: ATORVASTATIN 80 MG TAB PO STA (07:01)
[2017-09-26] MEDS ORDERED: ASPIRIN 325 MG TAB PO STA (07:01)
[2017-09-26] MEDS ORDERED: ALPRAZolam 0.5 MG TAB PO PRN (07:01)
[2017-09-26] MEDS ORDERED: SODIUM CHLORIDE 0.9% 1,000 ML in EMPTY BAG 1 BAG IV ONE (07:01)
[2017-09-26 07:10] LABS: Basophils % (A) 0 %; Eosinophils # (A) 0.2 k/uL (0-0.7); Eosinophils % (A) 2 %; HCT 37.1 % (34.0-46.0); HGB 11.5 gm/dL (11.4-16.0); Hypochromasia Slight; Lymphocytes # (A) 2.6 k/uL (1.0-4.8); Lymphocytes % (A) 20 %; MCH 30.1 pg (25.0-35.0); MCV 97.2 fL (80.0-100.0); Mean Platelet Volume 8.6; Monocytes # (A) 0.6 k/uL (0-1.0); Monocytes % (A) 5 %; Neutrophils # (A) 9.7 k/uL (1.3-7.7); Neutrophils % (A) 73 %; Platelet Count 230 k/uL (150-450); RBC 3.82 m/uL (3.80-5.40); RDW 13.5 % (11.5-15.5); WBC 13.3 k/uL (3.8-10.6)
[2017-09-26 07:28] LABS: Anion Gap 12 mmol/L; Blood Urea Nitrogen 8 mg/dL (7-17); Calcium 8.7 mg/dL (8.4-10.2); Carbon Dioxide 18 mmol/L (22-30); Chloride 111 mmol/L (98-107); Glucose 112 mg/dL (74-99); Magnesium 1.6 mg/dL (1.6-2.3); Phosphorus 2.7 mg/dL (2.5-4.5); Potassium 4.6 mmol/L (3.5-5.1); Sodium 141 mmol/L (137-145)
--- NOTE | 2017-09-26 07:57 | PN ---
PROGRESS NOTE Mrs. Machado is a 52-year-old female who presented with cardiac arrest with torsades, status post cardioversion. She is awake, alert, appears to be more alert today. She denies any change in her breathing. She has some soreness in the chest. She denies any dizziness or palpitation. She has not been taking any medication at home according to her. She is in sinus mechanism with no evidence of tachycardia or significant bradycardia. Hemodynamically, she has been stable. She continues to be on amiodarone 200 mg twice a day, aspirin once a day, IV heparin, metoprolol tartrate 25 mg twice a day. PHYSICAL EXAMINATION: Blood pressure running in the 140s to 150s with a heart rate in the 60s. LUNGS: Clear. Heart regular rate and rhythm S1, S2. No S3. No rub. ABDOMEN: Soft, nontender. EXTREMITIES: No edema. LAB DATA: Is pending. She underwent an abdominal ultrasound yesterday that revealed thickened gallbladder with hepatomegaly. She had chest CT that showed no evidence of pulmonary embolism with small pleural effusion and possible gallbladder sludge. IMPRESSION: 1. Cardiac arrest, status post cardioversion for torsade. 2. Hypertension. 3. Questionable history of arrhythmia in the past, although not clear. 4. Prior history of smoking. RECOMMENDATION: From the cardiac standpoint, I will continue on her amiodarone for now. I will add to her regimen an OVI inhibitor to optimize her blood pressure. I would recommend to proceed with coronary angiography to assess her status and guide her treatment. The rationale behind the procedure as well as risks and complications were discussed with the patient who is in full understanding and agreement. The procedure will be done tomorrow. MMODL / IJN: [id number] /
--- NOTE | 2017-09-26 08:19 | XR ---
EXAMINATION TYPE: XR chest 1V portable DATE OF EXAM: 09/26/2017 COMPARISON: Prior chest x-ray and chest CT 09/25/2017 HISTORY: Pneumonia TECHNIQUE: Single frontal view of the chest is obtained. FINDINGS: Bibasilar increased attenuation is again noted. Patient is rotated. There is prominence of the right hilum. Heart size is stable. No evident pneumothorax. There are overlying cardiac leads. I nterstitium mildly prominent. IMPRESSION: Correlate for basilar atelectasis versus pneumonia. Prominent right hilum, abnormal soft tissue noted on patient's CT at this level, consider pulmonary consult.
[2017-09-26] MEDS: HALOPERIDOL LACTATE 5 MG/ML 1 ML VIAL IM PRN (08:39)
[2017-09-26] MEDS ORDERED: LISINOPRIL 2.5 MG TAB PO SCH (09:00)
[2017-09-26] MEDS: HEPARIN SOD,PORK IN 0.45% NACL 25,000 UNIT in 0.45% NACL 1 500ML.BAG IV SCH (10:03)
[2017-09-26] MEDS: LISINOPRIL 5 MG TAB PO SCH ×2 (10:09→21:13)
[2017-09-26] MEDS: METOPROLOL TARTRATE 25 MG TAB PO SCH ×2 (10:09→20:42)
[2017-09-26] MEDS: AMIODARONE 200 MG TAB PO SCH ×2 (10:10→20:42)
--- NOTE | 2017-09-26 11:06 | P.PN ---
Subjective Progress Note Date: 09/26/17 Principal diagnosis: Acute hypoxic respiratory failure secondary to cardiac arrest. This is a 52-year-old female brought in to the ER by EMS in cardiac arrest. Apparently the patient was found unresponsive at home, and she had agonal breathing, pinpoint pupils, and evidence of torsade. Patient was cardioverted twice and upon arrival to the ER she was noted to be in sinus rhythm. Patient is known to have history of marijuana abuse. And no history of abuse of any other drugs. Patient was seen by cardiology, placed on amiodarone, and there was no evidence of any ischemic changes noted on the EKG. Cardiology felt that this is a cardiac arrest with torsade exact etiology was not clear. Troponins were noted to be slightly elevated. There was a bit of a concern about anoxic encephalopathy. Patient was on mechanical ventilation all along, and I evaluated the patient this morning, her blood pressure was noted to be low, given fluid boluses, pressure came up nicely, discontinued her lorazepam and her propofol drip, and awakened the patient within one hour. Evaluated the patient, she was arousable, and bit lethargic, but followed all instructions. There was no clear-cut evidence of any significant anoxic encephalopathy. Hence I plan to place the patient on a weaning mode utilizing a pressure support since the patient has a small endotracheal tube. If tolerated, and no arrhythmias noted, and the patient remains hemodynamically stable, I plan to extubate the patient hopefully today. Not much history can be obtained from the patient, but I was able to obtain a lot of information from the chart. Patient was reevaluated today on 09/25/2017, patient was extubated yesterday basically couple of hours after I rounded on her. Patient was awakened, given a short the pressure support and CPAP trial, and proceeded to extubating the patient. She has done quite well over the last 24 hours, patient had episodes of agitation last night to given Xanax and Ativan. Today she is a bit slow, but she is appropriate. Still cannot recall the exact events of what actually happened yesterday. Patient told me that she does not abuse any drugs, and she does not drink any alcohol, she had no previous similar episodes in the past. The drug screen came back positive however for amphetamine, benzodiazepine, and cannabinoids. Today's labs showed relatively normal CBC however her hemoglobin is down to 11. PTT remains at 53.7 therapeutic, basic metabolic profile is relatively normal, bicarb however is 19, renal profile is normal. Considering the electrolytes, and considering the elevated pH and the urine, we may be dealing with a picture of renal tubular acidosis. At this point, this has no clinical significance. Chest x-ray today showed a right hilar fullness, continues to have a right lower lobe opacity, remains on antibiotics for presumptive aspiration. However considering the right hilar fullness, and the presentation, I felt it would be worthwhile looking further into this by doing a CT of the chest. That is to evaluate for possible thromboembolic disease since we have no clear-cut explanation of what truly happened to this patient on presentation. And at the same time we will evaluate the right hilar fullness. And put the patient to address. In the meantime, the patient remains on heparin. Patient was reevaluated today on 09/26/2017, remains off mechanical ventilation now for the last 2 days, doing relatively well from the pulmonary perspective however, she had a CT of the chest yesterday which confirmed that the patient did have what seems to be aspiration pneumonia with bihilar consolidation noted bilaterally right more so than left. The CT of the chest ruled out pulmonary embolism. Patient had intermittent episodes of confusion and agitation last night and early this morning, she did receive Haldol, and has been receiving Ativan intermittently for agitation. Patient remains on soft restraints, and she has a sitter at bedside. According to the nurses she was quite confused last night, and wanted to leave the hospital. Hence Haldol was given and seems to work fine. Apparently remains a bit confused, patient new that she was at [facility], but she had no idea what year it is , she did know the month that this is September, and she did not know the date. According to the nurse she was much more confused last night. Today I recommended a psychiatric evaluation, and recommended that we continue sitter monitoring the patient. At this point in time, the patient is not mentally competent to make her decision about discharge or leaving the hospital AMA. I also discussed her condition with the admitting physician. Chest x-ray, CT of the chest, all labs including CBC and complete metabolic profile were reviewed, and they were relatively unremarkable not much metabolically to explain her mental condition and confusion. However I strongly believe that the patient may have sustained some component of anoxic brain injury as well as aspiration pneumonia from her initial event of cardiac arrest/torsade. Patient is scheduled to undergo cardiac catheterization in the morning by Dr. Rocha. Patient remains on antibiotics/Unasyn for aspiration pneumonia. Patient is now being followed by many consultants including neurology, cardiology, pulmonary/critical care, and I would like to add psychiatric evaluation. Objective - Vital Signs Vital signs: Vital Signs Temp 97.4 F L 09/26/17 04:00 Pulse 71 09/26/17 07:00 Resp 22 09/26/17 07:00 BP 154/93 09/26/17 07:00 Pulse Ox 95 09/26/17 07:00 Intake & Output 09/25/17 09/26/17 09/26/17 18:59 06:59 18:59 Intake Total 3178.167 3240 700 Output Total 1227 1290 225 Balance 3423.131 3720 475 Weight 76.1 kg Intake: IV 2000 0.9% NaCl with KCl 20 Meq 2000 /l 1,000 ml @ 200 mls/hr IV .Q5H [facility] Rx#:[id number] Intake, IV Titration 0266.585 2066 700 Amount 0.9% NaCl with KCl 20 Meq 400 2400 200 /l 1,000 ml @ 200 mls/hr IV .Q5H [facility] Rx#:[id number] Amiodarone 450 mg In 194.644 Dextrose 5% in Water 250 ml @ 0.5 MG/MIN 16.66 mls /hr IV .Q15H1M [facility] Rx#: [id number] Ampicillin-Sulbactam 3 gm 150.0 In Sodium Chloride 0.9% 100 ml @ 100 mls/hr IVPB Q6H [facility] Rx#:[id number] Heparin Sod,Pork in 0.45% 353.523 500 NaCl 25,000 unit In 0.45 % NaCl 1 500ml.bag @ 12 UNITS/KG/HR 17.4 mls/hr IV .Q24H [facility] Rx#: [id number] Oral 80 840 Output: Urine 1227 1290 225 Uretheral ([place]) 75 Other: Voiding Method Indwelling Catheter Indwelling Catheter # Bowel Movements 1 1 - Exam Physical Exam: Revealed a 52-year-old female, presently very calm, in no distress. Patient has a sitter at bedside. Head: Atraumatic, normocephalic. HEENT:[Neck is supple.] [No neck masses.] [No thyromegaly.] [No JVD.] No carotid bruits, moist mucous membranes, no cervical lymphadenopathy PERRLA, EOMI , no icterus. Chest: [Diminished breath sounds at the bases especially at the right base, no rhonchi, no wheezes. Symmetrical chest expansion, no chest wall tenderness.] Cardiac Exam: [Normal S1 and S2, no S3 gallop, no murmur.] Abdomen: [Soft, nontender, no megaly, no rebound, no guarding, positive bowel sounds, Extremities: [No clubbing, no edema, no cyanosis.] Neurological Exam: Patient is awake, follows all simple instructions nose that she is at [facility], but she doesn't know the year, does not know the date, or the day. Otherwise the patient has no gross focal neurologic deficit. Her neurological examination is nonfocal. Lymphatics: No lymphadenopathy. Psychiatric: Blunted affect, depressed mood, mental status examination as noted above, poor insight and judgment. - Labs CBC & Chem 7: 09/26/17 06:55 09/26/17 06:55 Labs: Abnormal Lab Results - Last 24 Hours (Table) 09/26/17 09/26/17 09/26/17 Range/Units 06:55 06:55 06:55 WBC 13.3 H (3.8-10.6) k/uL Neutrophils # 9.7 H (1.3-7.7) k/uL APTT 39.1 H (22.0-30.0) sec Chloride 111 H (98-107) mmol/L Carbon Dioxide 18 L (22-30) mmol/L Glucose 112 H (74-99) mg/dL Microbiology - Last 24 Hours (Table) 09/24/17 10:15 Nasal Screen MRSA/MSSA ([facility]) - Final Nasal Swab 09/24/17 12:00 Urine Culture - Final Urine,Catheterized 09/23/17 23:59 Gram Stain - Preliminary Sputum Sputum Culture - Preliminary Kierra sp,not albicans/galbr 09/24/17 00:01 Urine Culture - Final Urine,Catheterized 09/24/17 10:38 Blood Culture - Preliminary Blood No Growth after 24 hours 04/23/18 10:19 Blood Culture - Preliminary Blood No Growth after 24 hours Assessment and Plan Assessment: Impression: 1: Acute hypoxic respiratory failure secondary to cardiac arrest secondary to cardiac arrhythmia, possible torsade. Exact etiology is not clear. Patient may undergo cardiac catheterization tomorrow based on my conversation with the process control manager yesterday. 2: Acute aspiration pneumonia, remains on Unasyn being followed by infectious disease. 3 acute leukocytosis secondary to aspiration pneumonia. Improving compared to admission WBC count was 16.2, presently 13.3. 4 elevated troponin level secondary to cardiac arrest, rule out underlying coronary artery disease, patient is being followed by cardiology and addressing that issue itself. 5 acute hypotension, responded to holding narcotics and fluid boluses, strongly doubt sepsis. I believe the hypertension is secondary to hypovolemia and secondary to narcotics. However it did respond well to holding narcotics and sedatives, it also responded well to fluid boluses. Did not require any pressors. 6 right hilar fullness, hence a CT angiogram was done, and it showed mostly findings of aspiration with bihilar consolidation right more so than left. 7 acute mental status change most likely secondary to mild anoxic brain injury secondary to cardiac arrest. 8 possible component of underlying depression, hence will initiate a psychiatric consultation. Recommendation: Continue present supportive care measures, continue close observation for now in the ICU, continue to monitor the neurological status, sedation as needed, soft restraints as needed, patient is being followed by neurology and by psychiatry for the specific issues. Time with Patient: Less than 30
[2017-09-26] MEDS: IPRATROPIUM-ALBUTEROL 3 ML NEB INHALATION SCH ×3 (11:07→20:09)
--- NOTE | 2017-09-26 12:05 | P.PN ---
Subjective Progress Note Date: 09/26/17 Patient is awake and alert with a bedside sitter. Notified by nursing earlier today, the patient was requesting to leave AMA, apparently the patient was increasingly agitated and then subsequently became aggressive then was demanding to leave against mass medical advice. She was given Haldol which seemed to calm her down. Per reports it appears that the patient has been having intermittent waning periods where she is oriented X3 and lucid and then at other times is disoriented to year reported to the nurse that it was 2017 at other times. On my evaluation today the patient is cooperative and fully oriented at this time, the patient was able to relay the ongoing plan of care without difficulty and and stated that she plans to stay here to receive her cardiac catheterization tomorrow, she appears to be in good spirits at present. She denies any shortness of breath or cough or abdominal pain, she is unable to rrecall the events leading to her admission here Objective - Vital Signs Vital signs: Vital Signs Temp 98.1 F 09/26/17 08:00 Pulse 59 L 09/26/17 11:17 Resp 21 09/26/17 11:00 BP 145/88 09/26/17 11:00 Pulse Ox 97 09/26/17 11:00 Intake & Output 09/25/17 09/26/17 09/26/17 18:59 06:59 18:59 Intake Total 3178.167 3240 1100 Output Total 1227 1290 225 Balance 6664.897 3576 875 Weight 76.1 kg Intake: IV 2000 0.9% NaCl with KCl 20 Meq 2000 /l 1,000 ml @ 200 mls/hr IV .Q5H [facility] Rx#:[id number] Intake, IV Titration 7100.056 1184 1100 Amount 0.9% NaCl with KCl 20 Meq 400 2400 600 /l 1,000 ml @ 200 mls/hr IV .Q5H [facility] Rx#:[id number] Amiodarone 450 mg In 194.644 Dextrose 5% in Water 250 ml @ 0.5 MG/MIN 16.66 mls /hr IV .Q15H1M [facility] Rx#: [id number] Ampicillin-Sulbactam 3 gm 150.0 In Sodium Chloride 0.9% 100 ml @ 100 mls/hr IVPB Q6H [facility] Rx#:[id number] Heparin Sod,Pork in 0.45% 353.523 500 NaCl 25,000 unit In 0.45 % NaCl 1 500ml.bag @ 12 UNITS/KG/HR 17.4 mls/hr IV .Q24H [facility] Rx#: [id number] Oral 80 840 Output: Urine 1227 1290 225 Uretheral (Montez) 75 Other: Voiding Method Indwelling Catheter Indwelling Catheter # Voids 1 # Bowel Movements 1 1 - Exam Constitutional: No acute distress, conversant, pleasant Eyes: Anicteric sclerae, moist conjunctiva, no lid-lag, PERRLA ENMT: NC/AT,Oropharynx clear, no erythema, exudates Neck:Supple, FROM, no masses, or JVD, No carotid bruits; No thyromegaly Lungs: Clear to auscultation, Clear to percussion, Normal respiratory effort, no accessory muscle use Cardiovascular: Heart regular in rate and rhythm, No murmurs, gallops, or rubs no peripheral edema Abdominal: Soft Nontender, nom distended, no guarding, no rebound or rigidity, Normoactive bowel sounds No hepatomegaly, No splenomegaly, No palpable mass No abdominal wall hernia noted Skin: Normal temperature, tone, texture, turgor, No induration No subcutaneous nodules, No rash, lesions, No ulcers Extremities:No digital cyanosis No clubbing, Pedal pulses intact and symmetrical Radial pulses intact and symmetrical Normal gait and station, No calf tenderness Psychiatric: Alert and oriented to person, place and time, Appropriate affect Intact judgement Neuro: Muscles Strength 5/5 in all 4 extremities, Sensation to light touch grossly present throughout, Cranial nerves II-XII grossly intact. No focal sensory deficits - Labs CBC & Chem 7: 09/26/17 06:55 09/26/17 06:55 Labs: Abnormal Lab Results - Last 24 Hours (Table) 09/26/17 09/26/17 09/26/17 Range/Units 06:55 06:55 06:55 WBC 13.3 H (3.8-10.6) k/uL Neutrophils # 9.7 H (1.3-7.7) k/uL APTT 39.1 H (22.0-30.0) sec Chloride 111 H (98-107) mmol/L Carbon Dioxide 18 L (22-30) mmol/L Glucose 112 H (74-99) mg/dL Microbiology - Last 24 Hours (Table) 09/23/17 23:59 Gram Stain - Final Sputum Sputum Culture - Final Kierra sp,not albicans/galbr Kierra glabrata 09/24/17 10:15 Nasal Screen MRSA/MSSA (JULIAN) - Final Nasal Swab 09/24/17 12:00 Urine Culture - Final Urine,Catheterized 09/24/17 00:01 Urine Culture - Final Urine,Catheterized 09/24/17 10:38 Blood Culture - Preliminary Blood No Growth after 24 hours 09/24/17 10:19 Blood Culture - Preliminary Blood No Growth after 24 hours Assessment and Plan (1) Acute encephalopathy Narrative/Plan: * CT of the head negative for any acute infarct or hemorrhage * Likely anoxic brain injury status post cardiac arrest * Patient having some intermittent episodes of delirium and agitation continue with Haldol when necessary * Appreciate neurology recommendations Current Visit: Yes Status: Acute Code(s): G93.40 - ENCEPHALOPATHY, UNSPECIFIED SNOMED Code(s): 00545250 (2) Cardiac arrest Narrative/Plan: * Status post ACLS and 2 episodes of defibrillation now with return of spontaneous circulation * Initially received bolus, we'll check a lactate acid level continue to monitor closely with concern for cardiogenic shock * Continue on amiodarone and metoprolol * Patient initiated on heparin drip secondary to elevation of her troponins, now normlaized heparin discontinued * cardiology patient scheduled to have heart catheterization tomorrow Current Visit: Yes Status: Acute Code(s): I46.9 - CARDIAC ARREST, CAUSE UNSPECIFIED SNOMED Code(s): 622774902 (3) Sepsis Narrative/Plan: * Secondary to likely aspiration pneumonia versus possible acute cholecystitis * Patient afebrile leukocytosis trending down nicely * Patient currently normotensive and responded well to her fluid challenges yesterday, lactic acid normal, We'll check blood culture and urine culture pending * given concern for torsades will initiate antibiotic regimen with cefepime and vancomycin, will consult ID for further recommendations * Appreciated ID recommendations cefepime and vancomycin discontinued continue with Unasyn * CTA of the chest and negative for PE but showing bilateral hilar consolidation with central bilateral lower lobe extension, with suspected gallbladder sludge with fluid surrounding gallbladder * Right upper quadrant ultrasound consistent with acute cholecystitis Current Visit: Yes Status: Acute Code(s): A41.9 - SEPSIS, UNSPECIFIED ORGANISM SNOMED Code(s): 90670069 (4) Pneumonia Narrative/Plan: * Likely due to aspiration Antibiotic regimen as above Current Visit: Yes Status: Acute Code(s): J18.9 - PNEUMONIA, UNSPECIFIED ORGANISM SNOMED Code(s): 567450554 (5) Acute cholecystitis Narrative/Plan: * Ultrasonic evidence of pericholecystic fluid with thickened gallbladder consistent with acute cholecystitis * We'll consult general surgery to evaluate for laparoscopic cholecystectomy Current Visit: Yes Status: Acute Code(s): K81.0 - ACUTE CHOLECYSTITIS SNOMED Code(s): 14984888 (6) Urinary tract infection Narrative/Plan: * Urine culture with no growth Current Visit: Yes Status: Acute Code(s): N39.0 - URINARY TRACT INFECTION, SITE NOT SPECIFIED SNOMED Code(s): 05303028 Plan: Disposition * Continue current management will consult general surgery regarding acute cholecystitis seen on right upper quadrant ultrasound * Patient scheduled to have heart catheterization tomorrow
--- NOTE | 2017-09-26 13:08 | PN ---
PROGRESS NOTE DATE OF SERVICE: 09/26/2017 REASON FOR FOLLOWUP: Aspiration pneumonia. INTERVAL HISTORY: The patient is afebrile. She seems to be slightly upset at the nursing staff this morning and wants to get out of the hospital. Apparently, she has been IV. However, the patient seemed to be awake, alert. She knows where she is and what happened to her. Denies any chest pain. Occasional cough. No nausea, vomiting and no diarrhea. PHYSICAL EXAMINATION: On examination, blood pressure 145/88 with a pulse of 66, temperature 98. She is 97% on room air. General description is a middle-aged female up in the bed in no distress. RESPIRATORY SYSTEM: Unlabored breathing with decreased breath sounds at the bases. No wheeze. HEART: S1, S2. Regular rate and rhythm. ABDOMEN: Soft, no tenderness. EXTREMITIES: No edema of feet. LABS: Creatinine 0.6 and white count slightly elevated at 13.3 today. Blood culture so far negative. Sputum with Kierra, likely colonized. DIAGNOSTIC IMPRESSION AND PLAN: Patient with right lower lobe pneumonia in a patient who did have a cardiac arrest likely pointing towards an aspiration pneumonia, currently on Unasyn will be continued. Sputum has been negative for resistant pathogen. Plan will be to finish therapy with oral Augmentin at discharge. Continue with supportive care. MMODL / IJN: [id number] /
[2017-09-26 15:24] LABS: ALT 62 U/L (9-52); AST 71 U/L (14-36); Albumin 3.1 g/dL (3.5-5.0); Alkaline Phosphatase 118 U/L (38-126); Anion Gap 10 mmol/L; Blood Urea Nitrogen 9 mg/dL (7-17); Calcium 8.8 mg/dL (8.4-10.2); Carbon Dioxide 22 mmol/L (22-30); Chloride 109 mmol/L (98-107); Glucose 123 mg/dL (74-99); Potassium 4.4 mmol/L (3.5-5.1); Sodium 141 mmol/L (137-145); Total Bilirubin 0.3 mg/dL (0.2-1.3); Total Protein 5.3 g/dL (6.3-8.2)
--- NOTE | 2017-09-26 17:23 | P.GSCN ---
History of Present Illness Consult date: 09/26/17 Reason for Consult: Cholecystitis History of present illness: This a 52-year-old female who was admitted to the hospital after being found in cardiac arrest. Patient had a ultrasound of the abdomen today which showed a thickened gallbladder wall. The patient denies any significant abdominal pain. Past Medical History Past Medical History: Heart Failure History of Any Multi-Drug Resistant Organisms: None Reported Past Surgical History: Section Past Psychological History: No Psychological Hx Reported Smoking Status: Unknown if ever smoked Past Alcohol Use History: Unable to Obtain Past Drug Use History: Unable to Obtain - Past Family History Family Additional Family Medical History / Comment(s): Unable to obtain patient intubated Medications and Allergies Home Medications Medication Instructions Recorded Confirmed Type Ibuprofen [Motrin] 600 mg PO BID PRN 02/23/17 09/24/17 History Multivitamins, Thera [Multivitamin 1 tab PO DAILY 02/23/17 09/24/17 History (formulary)] Allergies Allergy/AdvReac Type Severity Reaction Status Date / Time No Known Allergies Allergy Verified 02/23/17 09:30 Surgical - Exam Vital Signs Temp Pulse Resp BP Pulse Ox 97.3 F L 100 12 151/92 90 L 09/23/17 22:03 09/23/17 22:03 09/23/17 22:03 09/23/17 22:03 09/23/17 22:03 - General no distress - Eyes PERRL - ENT normal pinna - Abdomen Abdomen soft. There is no significant right quadrant pain. There is no rebound or guarding. Results - Labs 09/26/17 06:55 09/26/17 14:39 Abnormal Lab Results - Last 24 Hours (Table) 09/26/17 09/26/17 09/26/17 Range/Units 06:55 06:55 06:55 WBC 13.3 H (3.8-10.6) k/uL Neutrophils # 9.7 H (1.3-7.7) k/uL APTT 39.1 H (22.0-30.0) sec Chloride 111 H (98-107) mmol/L Carbon Dioxide 18 L (22-30) mmol/L Glucose 112 H (74-99) mg/dL AST (14-36) U/L ALT (9-52) U/L Total Protein (6.3-8.2) g/dL Albumin (3.5-5.0) g/dL 09/26/17 Range/Units 14:39 WBC (3.8-10.6) k/uL Neutrophils # (1.3-7.7) k/uL APTT (22.0-30.0) sec Chloride 109 H (98-107) mmol/L Carbon Dioxide (22-30) mmol/L Glucose 123 H (74-99) mg/dL AST 71 H (14-36) U/L ALT 62 H (9-52) U/L Total Protein 5.3 L (6.3-8.2) g/dL Albumin 3.1 L (3.5-5.0) g/dL Microbiology - Last 24 Hours (Table) 09/24/17 10:38 Blood Culture - Preliminary Blood No Growth after 48 hours 09/24/17 10:19 Blood Culture - Preliminary Blood No Growth after 48 hours 09/23/17 23:59 Gram Stain - Final Sputum Sputum Culture - Final Kierra sp,not albicans/galbr Kierra glabrata 09/24/17 10:15 Nasal Screen MRSA/MSSA ([facility]) - Final Nasal Swab 09/24/17 12:00 Urine Culture - Final Urine,Catheterized 09/24/17 00:01 Urine Culture - Final Urine,Catheterized Diabetes panel 09/26/17 09/26/17 Range/Units 06:55 14:39 Sodium 141 141 (137-145) mmol/L Potassium 4.6 4.4 (3.5-5.1) mmol/L Chloride 111 H 109 H (98-107) mmol/L Carbon Dioxide 18 L 22 (22-30) mmol/L BUN 8 9 (7-17) mg/dL Creatinine 0.69 0.70 (0.52-1.04) mg/dL Glucose 112 H 123 H (74-99) mg/dL Calcium 8.7 8.8 (8.4-10.2) mg/dL AST 71 H (14-36) U/L ALT 62 H (9-52) U/L Alkaline Phosphatase 118 (38-126) U/L Total Protein 5.3 L (6.3-8.2) g/dL Albumin 3.1 L (3.5-5.0) g/dL Calcium panel 09/26/17 09/26/17 Range/Units 06:55 14:39 Calcium 8.7 8.8 (8.4-10.2) mg/dL Phosphorus 2.7 (2.5-4.5) mg/dL Albumin 3.1 L (3.5-5.0) g/dL Pituitary panel 09/26/17 09/26/17 Range/Units 06:55 14:39 Sodium 141 141 (137-145) mmol/L Potassium 4.6 4.4 (3.5-5.1) mmol/L Chloride 111 H 109 H (98-107) mmol/L Carbon Dioxide 18 L 22 (22-30) mmol/L BUN 8 9 (7-17) mg/dL Creatinine 0.69 0.70 (0.52-1.04) mg/dL Glucose 112 H 123 H (74-99) mg/dL Calcium 8.7 8.8 (8.4-10.2) mg/dL Adrenal panel 09/26/17 09/26/17 Range/Units 06:55 14:39 Sodium 141 141 (137-145) mmol/L Potassium 4.6 4.4 (3.5-5.1) mmol/L Chloride 111 H 109 H (98-107) mmol/L Carbon Dioxide 18 L 22 (22-30) mmol/L BUN 8 9 (7-17) mg/dL Creatinine 0.69 0.70 (0.52-1.04) mg/dL Glucose 112 H 123 H (74-99) mg/dL Calcium 8.7 8.8 (8.4-10.2) mg/dL Total Bilirubin 0.3 (0.2-1.3) mg/dL AST 71 H (14-36) U/L ALT 62 H (9-52) U/L Alkaline Phosphatase 118 (38-126) U/L Total Protein 5.3 L (6.3-8.2) g/dL Albumin 3.1 L (3.5-5.0) g/dL - Imaging US - abdomen: report reviewed (Gallbladder wall thickening) Assessment and Plan Assessment: Ultrasound findings suggestive of chronic cholecystitis with severely thickened gallbladder wall. Given the fact the patient had recent cardiac arrest. We will perform laparoscopic cholecystectomy when she is medically stable. We will await cardiac and medical clearance before performing laparoscopic cholecystectomy.
--- NOTE | 2017-09-26 21:25 | P.PN ---
Subjective Progress Note Date: 09/26/17 This patient is a 52-year-old female who was seen yesterday in neurology consultation for evaluation of cardiac arrest and altered mental status following extubation. Patient was extubated yesterday and was showing signs of slight improvement in her overall mental mental status. She was found to have evidence of possible aspiration pneumonia involving the right lower lobe. Infectious disease was consulted yesterday and the patient is currently being covered with Unasyn for treatment of aspiration pneumonia. The exact etiology of her cardiac arrest with torsades remains unclear. Cardiology continues to follow her closely. Her left ventricular systolic function has been shown to be preserved. It is unclear of her exact medication list which is being reviewed by cardiology as to possible etiology for her cardiac arrest. Patient is being switched to oral amiodarone as well as oral beta cristina today by cardiology. She is to continue on heparin. This been a slight elevation of troponins and cardiology will monitor. Patient may require cardiac catheterization to rule out any ischemic etiology for her cardiac arrhythmia. According to her ICU nursing staff she is being considered for a cardiac catheterization tomorrow. She was sent for a CTA angiogram of the chest which came back negative for pulmonary embolism. We will await further recommendations from cardiology. Patient neurologically is more awake today but still gets episodes of somnolence. This evening she does seem to answer questions more appropriately in her speech is much improved as compared to yesterday. According to the son who [facility] became very agitated this morning and was combative. She did require a dose of Haldol and is since responded very well. She was at one point thinking of leaving the hospital AMA. She is now doing much better in the ICU and is agreeable to move forward with cardiac catheterization procedure tomorrow. Patient likely has some findings of anoxic encephalopathy following her cardiac arrest. She does seem to be doing much better this evening in the ICU. We will continue close neurological follow-up for the patient during this admission. We will await further recommendations were multiple consultants addressing this patient in the intensive care unit. Objective - Vital Signs Vital signs: Vital Signs Temp 98.1 F 09/26/17 12:00 Pulse 66 09/26/17 15:53 Resp 23 09/26/17 15:00 BP 135/78 09/26/17 15:00 Pulse Ox 99 09/26/17 15:00 Intake & Output 09/25/17 09/26/17 09/26/17 18:59 06:59 18:59 Intake Total 3178.167 3240 2000 Output Total 1227 1290 225 Balance 9215.772 4559 1775 Weight 76.1 kg Intake: IV 2000 0.9% NaCl with KCl 20 Meq 2000 /l 1,000 ml @ 200 mls/hr IV .Q5H [facility] Rx#:[id number] Intake, IV Titration 5593.663 1696 2000 Amount 0.9% NaCl with KCl 20 Meq 400 2400 1400 /l 1,000 ml @ 200 mls/hr IV .Q5H [facility] Rx#:[id number] Amiodarone 450 mg In 194.644 Dextrose 5% in Water 250 ml @ 0.5 MG/MIN 16.66 mls /hr IV .Q15H1M [facility] Rx#: [id number] Ampicillin-Sulbactam 3 gm 150.0 100 In Sodium Chloride 0.9% 100 ml @ 100 mls/hr IVPB Q6H [facility] Rx#:[id number] Heparin Sod,Pork in 0.45% 353.523 500 NaCl 25,000 unit In 0.45 % NaCl 1 500ml.bag @ 12 UNITS/KG/HR 17.4 mls/hr IV .Q24H [facility] Rx#: [id number] Oral 80 840 Output: Urine 1227 1290 225 Uretheral (Montez) 75 Other: Voiding Method Indwelling Catheter Indwelling Catheter Indwelling Catheter # Voids 1 # Bowel Movements 1 1 - Exam Physical examination: PHYSICAL EXAMINATION: Patient is resting comfortably in bed. VITAL SIGNS: Blood pressure is [128/82]. Heart rate is [71]. Respiration is [26] . Temperature is [98.2]. HEENT: Head is atraumatic, neck is supple, there were no carotid bruits. CHEST: Lungs are clear to auscultation and percussion. CARDIAC: S1, S2 normal rate and rhythm. There is no murmur. ABDOMEN: Soft and nontender. Bowel sounds are present. EXTREMITIES: There is no pedal edema. Peripheral pulses are present. Neurological examination: Patient has a nonfocal neurological examination today. Patient is much more awake and alert today and is cooperative at this time. She did have an episode of acute agitation and combativeness early this morning. This has since resolved. - Labs CBC & Chem 7: 09/26/17 06:55 09/26/17 14:39 Labs: Abnormal Lab Results - Last 24 Hours (Table) 09/26/17 09/26/17 09/26/17 Range/Units 06:55 06:55 06:55 WBC 13.3 H (3.8-10.6) k/uL Neutrophils # 9.7 H (1.3-7.7) k/uL APTT 39.1 H (22.0-30.0) sec Chloride 111 H (98-107) mmol/L Carbon Dioxide 18 L (22-30) mmol/L Glucose 112 H (74-99) mg/dL AST (14-36) U/L ALT (9-52) U/L Total Protein (6.3-8.2) g/dL Albumin (3.5-5.0) g/dL 09/26/17 Range/Units 14:39 WBC (3.8-10.6) k/uL Neutrophils # (1.3-7.7) k/uL APTT (22.0-30.0) sec Chloride 109 H (98-107) mmol/L Carbon Dioxide (22-30) mmol/L Glucose 123 H (74-99) mg/dL AST 71 H (14-36) U/L ALT 62 H (9-52) U/L Total Protein 5.3 L (6.3-8.2) g/dL Albumin 3.1 L (3.5-5.0) g/dL Microbiology - Last 24 Hours (Table) 09/24/17 10:38 Blood Culture - Preliminary Blood No Growth after 48 hours 09/24/17 10:19 Blood Culture - Preliminary Blood No Growth after 48 hours 09/23/17 23:59 Gram Stain - Final Sputum Sputum Culture - Final Kierra sp,not albicans/galbr Kierra glabrata 09/24/17 10:15 Nasal Screen MRSA/MSSA ([facility]) - Final Nasal Swab 09/24/17 12:00 Urine Culture - Final Urine,Catheterized 09/24/17 00:01 Urine Culture - Final Urine,Catheterized Assessment and Plan (1) Cardiac arrest Current Visit: Yes Status: Acute Code(s): I46.9 - CARDIAC ARREST, CAUSE UNSPECIFIED SNOMED Code(s): 200831388 (2) Acute encephalopathy Current Visit: Yes Status: Acute Code(s): G93.40 - ENCEPHALOPATHY, UNSPECIFIED SNOMED Code(s): 60086571 (3) Torsades de pointes Current Visit: Yes Status: Acute Code(s): I47.2 - VENTRICULAR TACHYCARDIA SNOMED Code(s): 54368140 (4) Ventricular fibrillation Current Visit: Yes Status: Acute Code(s): I49.01 - VENTRICULAR FIBRILLATION SNOMED Code(s): 76037618 Plan: This patient is a 52-year-old female who was initially admitted to hospital after suffering acute cardiac arrest at home. She was found to have evidence of torsades and is been seen by cardiology. She remains in the intensive care unit this evening. She had an episode of acute agitation this morning which was treated with Haldol 1 dose and she has shown significant improvement. She is scheduled to undergo cardiac catheterization tomorrow. We will await further recommendations from cardiology. Neurologically she seems to be doing better and is less confused and agitated this evening. We will continue close neurological follow-up with the patient during this admission. Her overall prognosis at this time remains guarded.
[2017-09-27] MEDS: IPRATROPIUM-ALBUTEROL 3 ML NEB INHALATION SCH ×7 (00:02→23:34)
[2017-09-27] MEDS: AMPICILLIN-SULBACTAM 3 GM in SODIUM CHLORIDE 0.9% 100 ML IVPB SCH ×4 (01:22→18:44)
[2017-09-27 04:39] LABS: Anion Gap 11 mmol/L; Blood Urea Nitrogen 7 mg/dL (7-17); Carbon Dioxide 22 mmol/L (22-30); Chloride 109 mmol/L (98-107); Glucose 98 mg/dL (74-99); Magnesium 1.4 mg/dL (1.6-2.3); Phosphorus 3.5 mg/dL (2.5-4.5); Potassium 3.8 mmol/L (3.5-5.1); Sodium 142 mmol/L (137-145)
[2017-09-27 04:40] LABS: Basophils % (A) 0 %; Eosinophils # (A) 0.1 k/uL (0-0.7); Eosinophils % (A) 1 %; HCT 34.8 % (34.0-46.0); HGB 11.4 gm/dL (11.4-16.0); Lymphocytes # (A) 1.7 k/uL (1.0-4.8); Lymphocytes % (A) 16 %; MCHC 32.8 g/dL (31.0-37.0); MCV 94.6 fL (80.0-100.0); Mean Platelet Volume 8.3; Monocytes # (A) 0.6 k/uL (0-1.0); Monocytes % (A) 5 %; Neutrophils % (A) 76 %; Platelet Count 214 k/uL (150-450); RBC 3.67 m/uL (3.80-5.40); RDW 13.4 % (11.5-15.5); WBC 10.5 k/uL (3.8-10.6)
[2017-09-27] MEDS ORDERED: Magnesium Replacement Protocol 1 EACH MISC MISCELLANE PRN (05:21)
[2017-09-27] MEDS ORDERED: Potassium Replacement Protocol 1 EACH MISC MISCELLANE PRN (05:21)
[2017-09-27] MEDS: MAGNESIUM SULFATE-D5W PMX 1 GM in DEXTROSE/WATER 1 100ML.BAG IVPB SCH ×3 (05:49→09:03)
[2017-09-27] MEDS ORDERED: ASPIRIN 325 MG TAB PO ONE (06:00)
[2017-09-27] MEDS ORDERED: ATORVASTATIN 80 MG TAB PO ONE (06:00)
[2017-09-27] MEDS ORDERED: SODIUM CHLORIDE 0.9% 1,000 ML in EMPTY BAG 1 BAG IV ONE (06:00)
[2017-09-27] MEDS ORDERED: POTASSIUM CHLORIDE ER 20 MEQ TAB.ER PO SCH (06:00)
[2017-09-27] MEDS: AMIODARONE 200 MG TAB PO SCH ×2 (06:03→20:49)
[2017-09-27] MEDS: METOPROLOL TARTRATE 25 MG TAB PO SCH ×2 (06:07→20:37)
[2017-09-27] MEDS: LISINOPRIL 5 MG TAB PO SCH ×2 (06:24→21:31)
[2017-09-27] MEDS: ASPIRIN 81 MG PO SCH (06:28)
[2017-09-27] MEDS ORDERED: fentaNYL (PF) 50 MCG/ML 2 ML AMP ONE ×2 (07:35→14:58)
[2017-09-27] MEDS ORDERED: VERAPAMIL 2.5 MG/ML 2 ML AMP ONE (07:35)
[2017-09-27] MEDS ORDERED: LIDOCAINE 2% INJ 20 MG/ML (20 ML MDV) ONE (07:35)
[2017-09-27] MEDS ORDERED: fentaNYL (PF) 50 MCG/ML 2 ML AMP IV ONE (07:58)
[2017-09-27] MEDS ORDERED: LIDOCAINE 2% INJ 20 MG/ML SQ ONE (08:03)
[2017-09-27] MEDS ORDERED: MIDAZOLAM 2 MG/2 ML VIAL ONE ×2 (08:04→14:58)
[2017-09-27] MEDS ORDERED: MIDAZOLAM 2 MG/2 ML VIAL IV ONE (08:05)
[2017-09-27] MEDS ORDERED: VERAPAMIL SYRINGE (5 MG/10 ML) INTRAARTER ONE (08:06)
[2017-09-27] MEDS ORDERED: HEPARIN SODIUM 1,000 UN/ML (10ML VL) ONE (08:10)
[2017-09-27] MEDS ORDERED: HEPARIN SODIUM 1,000 UN/ML (10ML VL) IV ONE (08:11)
[2017-09-27] MEDS ORDERED: IOPAMIDOL-370 125ML BTL INJ ONE (08:15)
[2017-09-27] MEDS ORDERED: IV FLUID CONTINUATION 400 ML IV ONE (08:17)
[2017-09-27] MEDS ORDERED: RX INFO: IV CONTRAST WAS GIVEN 1 EACH MISC MISCELLANE PRN (08:26)
[2017-09-27] MEDS ORDERED: SODIUM CHLORIDE 0.9% 1,000 ML IV SCH ×2 (08:30→11:15)
[2017-09-27] MEDS: 0.9% NACL WITH KCL 20 MEQ/L 1,000 ML IV SCH ×2 (09:02)
--- NOTE | 2017-09-27 09:03 | CC ---
CARDIAC CATHETERIZATION REPORT Ms. Machado is a 52-year-old female who presented to the hospital with a cardiac arrest and torsade de Pointe, was intubated, subsequently extubated. She had minimal troponin elevation. No significant EKG changes. In view of that, recommendation was made regarding cardiac catheterization. The procedure as well as the risks and the complications were discussed with the patient who is in full understanding and agreement. PROCEDURE: Patient was brought to denture laboratory technician in a fasting semi-sedated state after receiving fentanyl and Benadryl and achieving moderate conscious sedated state. Using Xylocaine anesthesia in the Seldinger technique, a 6-Congolese sheath was introduced in the right radial artery. Selective right and left coronary angiography performed using 5-Congolese 3.5 bend right and left Brian catheter. Multiple views of the coronary artery including hemiaxial views were obtained. Following that, 5-Congolese tight pigtail catheter introduced in the left ventricle and a 30-degree CHENG view of the left ventricle was obtained. Following that, catheter and sheaths were removed. Hemostasis was obtained with deployment of a TR band. There was no immediate complication. Patient is returned to her room in stable condition. Of note, the patient received 4000 units of intravenous heparin as well as intra-arterial verapamil. FINDINGS: LEFT MAIN: This is a large-sized vessel, bifurcating in left circumflex and left anterior descending artery. Left main coronary artery is without any significant obstructive disease. LEFT ANTERIOR DESCENDING ARTERY: This is a large-sized vessel reaching toward the apex with a wraparound apex segment giving rise to 2 diagonal branches of moderate caliber. The left anterior descending artery as well as branches have no evidence of obstructive coronary artery disease. LEFT CIRCUMFLEX: This is a nondominant vessel giving rise to 4 obtuse marginal branches. The last 2 are the largest in caliber. The left circumflex as well as branches have no evidence of obstructive coronary artery disease. RIGHT CORONARY ARTERY: This is a large dominant vessel bifurcating in PDA and posterolateral segment and branches. The right coronary artery as well as branches have no evidence of obstructive coronary artery disease. LEFT VENTRICULOGRAM: The left ventriculogram was performed in 30-degree CHENG view and revealed a normal left ventricular size with moderate global hypokinesis. The estimated ejection fraction is 40%. There was no significant mitral regurgitation. HEMODYNAMICS: There was no gradient across the aortic valve. The left ventricle end- diastolic pressure was 28 mmHg. CONCLUSION: 1. Normal coronary arteries. 2. Moderately impaired left ventricular systolic function. RECOMMENDATION: In view of finding anatomy, I have recommend proceeding with evaluation for ICD implantation. The etiology of her cardiomyopathy is nonischemic and the duration is unknown. Those findings and recommendation were discussed with the patient and she is in full understanding and agreement. Duration of procedure is 17 minutes. TORIN / ADALN: [id number] /
[2017-09-27] MEDS: SPIRONOLACTONE 25 MG TAB PO SCH (09:04)
--- NOTE | 2017-09-27 11:12 | P.PN ---
Subjective Progress Note Date: 09/27/17 Principal diagnosis: Acute hypoxic respiratory failure secondary to cardiac arrest. This is a 52-year-old female brought in to the ER by EMS in cardiac arrest. Apparently the patient was found unresponsive at home, and she had agonal breathing, pinpoint pupils, and evidence of torsade. Patient was cardioverted twice and upon arrival to the ER she was noted to be in sinus rhythm. Patient is known to have history of marijuana abuse. And no history of abuse of any other drugs. Patient was seen by cardiology, placed on amiodarone, and there was no evidence of any ischemic changes noted on the EKG. Cardiology felt that this is a cardiac arrest with torsade exact etiology was not clear. Troponins were noted to be slightly elevated. There was a bit of a concern about anoxic encephalopathy. Patient was on mechanical ventilation all along, and I evaluated the patient this morning, her blood pressure was noted to be low, given fluid boluses, pressure came up nicely, discontinued her lorazepam and her propofol drip, and awakened the patient within one hour. Evaluated the patient, she was arousable, and bit lethargic, but followed all instructions. There was no clear-cut evidence of any significant anoxic encephalopathy. Hence I plan to place the patient on a weaning mode utilizing a pressure support since the patient has a small endotracheal tube. If tolerated, and no arrhythmias noted, and the patient remains hemodynamically stable, I plan to extubate the patient hopefully today. Not much history can be obtained from the patient, but I was able to obtain a lot of information from the chart. Patient was reevaluated today on 09/25/2017, patient was extubated yesterday basically couple of hours after I rounded on her. Patient was awakened, given a short the pressure support and CPAP trial, and proceeded to extubating the patient. She has done quite well over the last 24 hours, patient had episodes of agitation last night to given Xanax and Ativan. Today she is a bit slow, but she is appropriate. Still cannot recall the exact events of what actually happened yesterday. Patient told me that she does not abuse any drugs, and she does not drink any alcohol, she had no previous similar episodes in the past. The drug screen came back positive however for amphetamine, benzodiazepine, and cannabinoids. Today's labs showed relatively normal CBC however her hemoglobin is down to 11. PTT remains at 53.7 therapeutic, basic metabolic profile is relatively normal, bicarb however is 19, renal profile is normal. Considering the electrolytes, and considering the elevated pH and the urine, we may be dealing with a picture of renal tubular acidosis. At this point, this has no clinical significance. Chest x-ray today showed a right hilar fullness, continues to have a right lower lobe opacity, remains on antibiotics for presumptive aspiration. However considering the right hilar fullness, and the presentation, I felt it would be worthwhile looking further into this by doing a CT of the chest. That is to evaluate for possible thromboembolic disease since we have no clear-cut explanation of what truly happened to this patient on presentation. And at the same time we will evaluate the right hilar fullness. And put the patient to address. In the meantime, the patient remains on heparin. Patient was reevaluated today on 09/26/2017, remains off mechanical ventilation now for the last 2 days, doing relatively well from the pulmonary perspective however, she had a CT of the chest yesterday which confirmed that the patient did have what seems to be aspiration pneumonia with bihilar consolidation noted bilaterally right more so than left. The CT of the chest ruled out pulmonary embolism. Patient had intermittent episodes of confusion and agitation last night and early this morning, she did receive Haldol, and has been receiving Ativan intermittently for agitation. Patient remains on soft restraints, and she has a sitter at bedside. According to the nurses she was quite confused last night, and wanted to leave the hospital. Hence Haldol was given and seems to work fine. Apparently remains a bit confused, patient new that she was at [facility], but she had no idea what year it is , she did know the month that this is September, and she did not know the date. According to the nurse she was much more confused last night. Today I recommended a psychiatric evaluation, and recommended that we continue sitter monitoring the patient. At this point in time, the patient is not mentally competent to make her decision about discharge or leaving the hospital AMA. I also discussed her condition with the admitting physician. Chest x-ray, CT of the chest, all labs including CBC and complete metabolic profile were reviewed, and they were relatively unremarkable not much metabolically to explain her mental condition and confusion. However I strongly believe that the patient may have sustained some component of anoxic brain injury as well as aspiration pneumonia from her initial event of cardiac arrest/torsade. Patient is scheduled to undergo cardiac catheterization in the morning by Dr. Rocha. Patient remains on antibiotics/Unasyn for aspiration pneumonia. Patient is now being followed by many consultants including neurology, cardiology, pulmonary/critical care, and I would like to add psychiatric evaluation. Reevaluated today on 09/27/2017, patient is definitely more awake today, in good spirits, relatively asymptomatic, and she had a cardiac catheterization today which showed normal coronaries, but poor LV function, and cardiomyopathy. The porter sample case is recommending ICD placement. The exact etiology of her LV dysfunction is not clear. Mentation-pérez, the patient seems to be almost back to normal. She is alert, oriented 3, and in no form of distress. She is definitely more appropriate today compared to yesterday. And she understood the plan of requiring ICD placement to hopefully avoid cardiac arrest again. In the future. CBC is relatively normal basic metabolic profile is normal. Objective - Vital Signs Vital signs: Vital Signs Temp 97.7 F 09/27/17 08:31 Pulse 60 09/27/17 10:15 Resp 13 09/27/17 10:15 BP 141/85 09/27/17 10:15 Pulse Ox 94 L 09/27/17 10:15 Intake & Output 09/26/17 09/27/17 09/27/17 18:59 06:59 18:59 Intake Total 2600 200 690 Output Total 225 0 Balance 2375 200 690 Weight 77.2 kg Intake: IV 50 Intake, IV Titration 2600 200 640 Amount 0.9% NaCl with KCl 20 Meq 2000 200 40 /l 1,000 ml @ 200 mls/hr IV .Q5H JOZEF Rx#:[id number] Ampicillin-Sulbactam 3 gm 100 100 In Sodium Chloride 0.9% 100 ml @ 100 mls/hr IVPB Q6H JOZEF Rx#:[id number] Heparin Sod,Pork in 0.45% 500 NaCl 25,000 unit In 0.45 % NaCl 1 500ml.bag @ 12 UNITS/KG/HR 17.4 mls/hr IV .Q24H JOZEF Rx#: [id number] Magnesium Sulfate-D5w Pmx 100 1 gm In Dextrose/Water 1 100ml.bag @ 100 mls/hr IVPB Q1H JOZEF Rx#: [id number] Sodium Chloride 0.9% 1, 400 000 ml @ 100 mls/hr IV . Q10H JOZEF Rx#:[id number] Output: Urine 225 0 Uretheral (Montez) 75 Other: Voiding Method Bedside Commode Bedside Commode # Voids 1 1 1 # Bowel Movements 1 1 - Exam Physical Exam: Revealed a 52-year-old female, in no form of distress. Head: Atraumatic, normocephalic. HEENT:[Neck is supple.] [No neck masses.] [No thyromegaly.] [No JVD.] No carotid bruits, moist mucous membranes, no cervical lymphadenopathy PERRLA, EOMI , no icterus. Chest: [Diminished breath sounds at the bases especially at the right base, no rhonchi, no wheezes. Symmetrical chest expansion, no chest wall tenderness.] Cardiac Exam: [Normal S1 and S2, no S3 gallop, no murmur.] Abdomen: [Soft, nontender, no megaly, no rebound, no guarding, positive bowel sounds, Extremities: [No clubbing, no edema, no cyanosis.] Neurological Exam: Alert, oriented 3, no gross focal neurologic deficits. Lymphatics: No lymphadenopathy. Psychiatric: Normal mood, affect, and mental status examination significant improvement over the last 24 hours. - Labs CBC & Chem 7: 09/27/17 04:01 09/27/17 04:01 Labs: Abnormal Lab Results - Last 24 Hours (Table) 09/26/17 09/26/17 09/27/17 Range/Units 14:39 17:11 04:01 RBC 3.67 L (3.80-5.40) m/uL Neutrophils # 8.0 H (1.3-7.7) k/uL APTT 56.4 H (22.0-30.0) sec Chloride 109 H (98-107) mmol/L Glucose 123 H (74-99) mg/dL Magnesium (1.6-2.3) mg/dL AST 71 H (14-36) U/L ALT 62 H (9-52) U/L Total Protein 5.3 L (6.3-8.2) g/dL Albumin 3.1 L (3.5-5.0) g/dL 09/27/17 09/27/17 Range/Units 04:01 04:01 RBC (3.80-5.40) m/uL Neutrophils # (1.3-7.7) k/uL APTT 40.3 H (22.0-30.0) sec Chloride 109 H (98-107) mmol/L Glucose (74-99) mg/dL Magnesium 1.4 L (1.6-2.3) mg/dL AST (14-36) U/L ALT (9-52) U/L Total Protein (6.3-8.2) g/dL Albumin (3.5-5.0) g/dL Microbiology - Last 24 Hours (Table) 09/24/17 10:38 Blood Culture - Preliminary Blood No Growth after 48 hours 09/24/17 10:19 Blood Culture - Preliminary Blood No Growth after 48 hours 09/23/17 23:59 Gram Stain - Final Sputum Sputum Culture - Final Kierra sp,not albicans/galbr Kierra glabrata Assessment and Plan Assessment: Impression: 1: Acute hypoxic respiratory failure secondary to cardiac arrest secondary to cardiac arrhythmia, possible torsade. Secondary to severe cardiomyopathy and LV dysfunction but the patient was found to have normal coronaries. 2: Acute aspiration pneumonia, remains on Unasyn being followed by infectious disease. 3 acute leukocytosis secondary to aspiration pneumonia. Improving 4 elevated troponin level secondary to cardiac arrest, rule out underlying coronary artery disease, patient is being followed by cardiology and addressing that issue itself. 5 acute hypotension, responded to holding narcotics and fluid boluses, strongly doubt sepsis. I believe the hypertension is secondary to hypovolemia and secondary to narcotics. Resolved. 6 right hilar fullness, hence a CT angiogram was done, and it showed mostly findings of aspiration with bihilar consolidation right more so than left. Remains on antibiotics 7 acute mental status change most likely secondary to mild anoxic brain injury significantly improved over the last 24 hours. 8 possible component of underlying depression, psychiatric consultation was initiated. Recommendation: Continue present supportive care measures, patient will eventually require ICD placement, this will be arranged for by cardiology on the case. We will continue to follow. Time with Patient: Less than 30
[2017-09-27] MEDS ORDERED: ceFAZolin 1,000 MG in SODIUM CHLORIDE 0.9% IRRIGATIO 250 ML IRRIGATION ONE (12:00)
[2017-09-27] MEDS ORDERED: ceFAZolin IN SWFI 2 GM/20 ML SYRINGE IVP ONE ×2 (12:00→20:00)
--- NOTE | 2017-09-27 12:47 | P.PN ---
Subjective Progress Note Date: 09/27/17 Patient is up and alert and is doing well post-heart cath, has no complaints denies any chest pain or shortness of breath, does have a mild cough that is not bothersome, no reports of increasing agitation or aggression overnight. Patient was able to relay ongoing plan of care and her recent heart cath results. She has no concerns at this time but reports to being a little anxious , otherwise no acute events overnight Objective - Vital Signs Vital signs: Vital Signs Temp 97.7 F 09/27/17 08:31 Pulse 59 L 09/27/17 11:56 Resp 15 09/27/17 11:30 BP 151/80 09/27/17 11:30 Pulse Ox 96 09/27/17 11:30 Intake & Output 09/26/17 09/27/17 09/27/17 18:59 06:59 18:59 Intake Total 2600 200 790 Output Total 225 0 Balance 2375 200 790 Weight 77.2 kg Intake: IV 50 Intake, IV Titration 2600 200 740 Amount 0.9% NaCl with KCl 20 Meq 2000 200 40 /l 1,000 ml @ 200 mls/hr IV .Q5H JOZEF Rx#:[id number] Ampicillin-Sulbactam 3 gm 100 100 In Sodium Chloride 0.9% 100 ml @ 100 mls/hr IVPB Q6H JOZEF Rx#:[id number] Heparin Sod,Pork in 0.45% 500 NaCl 25,000 unit In 0.45 % NaCl 1 500ml.bag @ 12 UNITS/KG/HR 17.4 mls/hr IV .Q24H JOZEF Rx#: [id number] Magnesium Sulfate-D5w Pmx 100 1 gm In Dextrose/Water 1 100ml.bag @ 100 mls/hr IVPB Q1H JOZEF Rx#: [id number] Sodium Chloride 0.9% 1, 500 000 ml @ 100 mls/hr IV . Q10H JOZEF Rx#:[id number] Output: Urine 225 0 Uretheral (Montez) 75 Other: Voiding Method Bedside Commode Bedside Commode # Voids 1 1 1 # Bowel Movements 1 1 - Exam Constitutional: No acute distress, conversant, pleasant Eyes: Anicteric sclerae, moist conjunctiva, no lid-lag, PERRLA ENMT: NC/AT,Oropharynx clear, no erythema, exudates Neck:Supple, FROM, no masses, or JVD, No carotid bruits; No thyromegaly Lungs: Clear to auscultation, Clear to percussion, Normal respiratory effort, no accessory muscle use Cardiovascular: Heart regular in rate and rhythm, No murmurs, gallops, or rubs no peripheral edema Abdominal: Soft Nontender, nom distended, no guarding, no rebound or rigidity, Normoactive bowel sounds No hepatomegaly, No splenomegaly, No palpable mass No abdominal wall hernia noted Skin: Normal temperature, tone, texture, turgor, No induration No subcutaneous nodules, No rash, lesions, No ulcers Extremities:No digital cyanosis No clubbing, Pedal pulses intact and symmetrical Radial pulses intact and symmetrical Normal gait and station, No calf tenderness Neuro: Patient unresponsive, on a ventilator and intubated, sedation turned off secondary to hypoyension - Labs CBC & Chem 7: 09/27/17 04:01 09/27/17 04:01 Labs: Abnormal Lab Results - Last 24 Hours (Table) 09/26/17 09/26/17 09/27/17 Range/Units 14:39 17:11 04:01 RBC 3.67 L (3.80-5.40) m/uL Neutrophils # 8.0 H (1.3-7.7) k/uL APTT 56.4 H (22.0-30.0) sec Chloride 109 H (98-107) mmol/L Glucose 123 H (74-99) mg/dL Magnesium (1.6-2.3) mg/dL AST 71 H (14-36) U/L ALT 62 H (9-52) U/L Total Protein 5.3 L (6.3-8.2) g/dL Albumin 3.1 L (3.5-5.0) g/dL 09/27/17 09/27/17 Range/Units 04:01 04:01 RBC (3.80-5.40) m/uL Neutrophils # (1.3-7.7) k/uL APTT 40.3 H (22.0-30.0) sec Chloride 109 H (98-107) mmol/L Glucose (74-99) mg/dL Magnesium 1.4 L (1.6-2.3) mg/dL AST (14-36) U/L ALT (9-52) U/L Total Protein (6.3-8.2) g/dL Albumin (3.5-5.0) g/dL Microbiology - Last 24 Hours (Table) 09/24/17 10:38 Blood Culture - Preliminary Blood No Growth after 72 hours 09/24/17 10:19 Blood Culture - Preliminary Blood No Growth after 72 hours 09/23/17 23:59 Gram Stain - Final Sputum Sputum Culture - Final Kierra sp,not albicans/galbr Kierra glabrata Assessment and Plan (1) Acute encephalopathy Narrative/Plan: * CT of the head negative for any acute infarct or hemorrhage * Likely anoxic brain injury status post cardiac arrest * Neurology consulted, propofol sedation turned off. Patient currently intubated for ventilatory support post cardiac arrest, pulmonology following planning to perform weaning trial next B patient Current Visit: Yes Status: Resolved Code(s): G93.40 - ENCEPHALOPATHY, UNSPECIFIED SNOMED Code(s): 74555155 (2) Cardiac arrest Narrative/Plan: * Status post ACLS and 2 episodes of defibrillation now with return of spontaneous circulation * Initially received bolus, we'll check a lactate acid level continue to monitor closely with concern for cardiogenic shock * Continue on amiodarone and metoprolol * Patient initiated on heparin drip secondary to elevation of her troponins, which has since been discontinued * Patient is post heart cath 09/27/17 which showed normal coronary arteries, with ejection fraction of 40% on ventriculogram. Recommendations for ICD evaluation An placement by Dr. Lucero Current Visit: Yes Status: Resolved Code(s): I46.9 - CARDIAC ARREST, CAUSE UNSPECIFIED SNOMED Code(s): 705644462 (3) Non-ischemic cardiomyopathy Narrative/Plan: * EF of 40% on ventriculogram, patient scheduled to have ICD placement later today * We'll add low-dose OVI inhibitor lisinopril to patient's regimen Current Visit: Yes Status: Acute Code(s): I42.8 - OTHER CARDIOMYOPATHIES SNOMED Code(s): 20274391 (4) Sepsis Narrative/Plan: * Secondary to Aspiration pneumonia * Patient afebrile leukocytosis resolved * Patient currently normotensive and responded well to her fluid challenges yesterday, lactic acid normal, We'll check blood culture and urine culture pending * given concern for torsades will initiate antibiotic regimen with cefepime and vancomycin, will consult ID for further recommendations * Appreciated ID recommendations cefepime and vancomycin discontinued continue with Unasyn * CTA of the chest and negative for PE but showing bilateral hilar consolidation with central bilateral lower lobe extension, with suspected gallbladder sludge with fluid surrounding gallbladder * Appreciate general surgery recommendations this patient seen by Dr. Echevarria no concerns for acute cholecystitis, planning to wait on cardiac clearance before performing laparoscopic cholecystectomy Current Visit: Yes Status: Acute Code(s): A41.9 - SEPSIS, UNSPECIFIED ORGANISM SNOMED Code(s): 38124197 (5) Pneumonia Narrative/Plan: * Antibiotic regimen as above Current Visit: Yes Status: Acute Code(s): J18.9 - PNEUMONIA, UNSPECIFIED ORGANISM SNOMED Code(s): 930388840
[2017-09-27] MEDS ORDERED: IV FLUID CONTINUATION 1,000 ML IV ONE (14:58)
[2017-09-27] MEDS ORDERED: PROPOFOL 10 MG/ML 20 ML VIAL IV ONE (14:58)
[2017-09-27] MEDS ORDERED: diphenhydrAMINE 50 MG/ML 1 ML VIAL ONE (14:58)
[2017-09-27] MEDS ORDERED: SODIUM CHLORIDE 0.9% 1,000 ML IV ONE (14:58)
[2017-09-27] MEDS ORDERED: IOPAMIDOL-250 50ML BTL IV ONE (15:24)
[2017-09-27] MEDS ORDERED: LIDOCAINE 1% INJ 10MG/ML (20 ML MDV) SQ ONE ×2 (15:44→15:49)
--- NOTE | 2017-09-27 15:56 | P.PN ---
Progress Note - Text Progress Note Date: 09/27/17 I attempted to see patient on 2 occasions and she is having an ICD placed and off the floor. Will return tomorrow to do consult
--- NOTE | 2017-09-27 16:48 | P.CRDCN ---
History of Present Illness History of present illness: 52-year-old female who presented to the hospital with an out of hospital cardiac arrest. Documented ventricular fibrillation Following that her 12-lead ECG showed sinus rhythm with an absolute QT interval of about 400 ms and frequent PVCs. These PVCs and upright QRS morphology in the inferior leads deep negative in aVR and aVL and M shaped in lead 1 The question the patient she denied any past history of syncope or clear-cut palpitations In the past she has been told that she had a cardiomyopathy but this was almost 10 years back Normal coronary arteries. This event was not associated with an acute myocardial infarction or acute coronary syndrome Electrolytes were fairly normal. No clear-cut drug use or medication use that could've precipitated this event Initially she was intubated in the mid recently extubated and then proceed with coronary angiography which was normal LV function with a mildly reduced no clear-cut wall motion of the multi- 2-D echo was reviewed and shows mild LV dysfunction Patient denies alcohol use Review of systems: No fever chills or rigors, no cough, phlegm or expectoration , no nausea, vomiting or diarrhea, no hematuria, dysuria, no musculoskeletal complaints, no strokes or seizures, no skin lesions. On examination her pulse rate in the 60s, she is afebrile, blood pressure 147/ 80 mmHg Head And neck examination is normal Heart sounds are normal Breath sounds are clear Abdomen soft Extremities warm no edema She is alert and oriented and gives a full history now Twelve-lead ECG shows sinus rhythm with a subtle QRS fractionation at the onset of the QRS in the inferior leads especially lead 3 and aVF Impression Out of hospital cardiac arrest, polymorphic VT/VF but QT interval is normal Post defibrillation PVCs noted outflow tract variety Possible mild cardio myopathy Possible ventricular fibrillation triggered by PVCs At this point it is unclear if this is idiopathic ventricular fibrillation or not Suggest ICD implantation for secondary prevention of sudden cardiac Maximize beta blockers Thereafter amiodarone may be discontinued Spironolactone may be used to maintain potassium and magnesium Cardiac MRI as an outpatient, discussed with Dr. Rocha If she has frequent PVCs on Holter monitoring in the future , PVC ablation should be considered for management of recurrent VF in the future Past Medical History Past Medical History: Heart Failure History of Any Multi-Drug Resistant Organisms: None Reported Past Surgical History: Section Past Psychological History: No Psychological Hx Reported Smoking Status: Unknown if ever smoked Past Alcohol Use History: Unable to Obtain Past Drug Use History: Unable to Obtain - Past Family History Family Additional Family Medical History / Comment(s): Unable to obtain patient intubated Medications and Allergies Home Medications Medication Instructions Recorded Confirmed Type Ibuprofen [Motrin] 600 mg PO BID PRN 02/23/17 09/24/17 History Multivitamins, Thera [Multivitamin 1 tab PO DAILY 02/23/17 09/24/17 History (formulary)] Allergies Allergy/AdvReac Type Severity Reaction Status Date / Time No Known Allergies Allergy Verified 02/23/17 09:30 Physical Exam Vitals: Vital Signs Temp Pulse Resp BP Pulse Ox 09/27/17 13:30 66 18 151/88 98 09/27/17 13:00 67 20 147/80 97 09/27/17 12:30 54 L 17 137/79 96 09/27/17 12:00 97.7 F 62 24 142/77 96 09/27/17 11:56 59 L 09/27/17 11:45 54 L 09/27/17 11:30 50 L 15 151/80 96 09/27/17 11:00 65 20 146/91 94 L 09/27/17 10:30 53 L 16 122/68 94 L 09/27/17 10:15 60 13 141/85 94 L 09/27/17 10:00 55 L 17 132/80 94 L 09/27/17 09:45 57 L 14 137/83 96 09/27/17 09:30 61 18 151/86 96 09/27/17 09:15 56 L 22 147/82 93 L 09/27/17 09:00 58 L 17 141/88 94 L 09/27/17 08:55 58 L 09/27/17 08:41 57 L 93 L 09/27/17 08:31 97.7 F 83 52 H 141/88 98 09/27/17 05:00 73 19 148/85 09/27/17 04:00 81 25 H 96 09/27/17 03:31 70 09/27/17 03:20 81 09/27/17 03:00 67 21 09/27/17 02:00 68 24 09/27/17 01:00 60 20 09/27/17 00:14 66 09/27/17 00:02 63 09/27/17 00:00 98.0 F 61 21 154/110 09/26/17 23:00 55 L 20 154/110 97 09/26/17 22:13 58 L 28 H 159/96 97 09/26/17 22:00 65 28 H 159/96 97 09/26/17 21:00 68 31 H 148/90 98 09/26/17 20:22 70 09/26/17 20:12 69 09/26/17 20:00 98.5 F 66 24 98 09/26/17 19:00 70 20 98 09/26/17 18:00 71 26 H 128/82 98 09/26/17 17:00 73 22 128/82 99 Intake and Output 09/27/17 09/27/17 09/27/17 06:59 14:59 22:59 Intake Total 840 Output Total 0 Balance 0 840 Intake: IV 50 Intake, IV Titration 790 Amount 0.9% NaCl with KCl 20 Meq 40 /l 1,000 ml @ 200 mls/hr IV .Q5H [facility] Rx#:[id number] Ampicillin-Sulbactam 3 gm 100 In Sodium Chloride 0.9% 100 ml @ 100 mls/hr IVPB Q6H [facility] Rx#:[id number] Magnesium Sulfate-D5w Pmx 100 1 gm In Dextrose/Water 1 100ml.bag @ 100 mls/hr IVPB Q1H [facility] Rx#: [id number] Sodium Chloride 0.9% 1, 500 000 ml @ 100 mls/hr IV . Q10H [facility] Rx#:[id number] Sodium Chloride 0.9% 1, 50 000 ml @ 50 mls/hr IV . Q20H [facility] Rx#:[id number] Output: Urine 0 Other: Voiding Method Bedside Commode Bedside Commode # Voids 1 1 # Bowel Movements 1 Weight 77.2 kg Results 09/27/17 04:01 09/27/17 04:01 Coagulation 09/26/17 09/27/17 Range/Units 17:11 04:01 APTT 56.4 H 40.3 H (22.0-30.0) sec CBC 09/27/17 Range/Units 04:01 WBC 10.5 (3.8-10.6) k/uL RBC 3.67 L (3.80-5.40) m/uL Hgb 11.4 (11.4-16.0) gm/dL Hct 34.8 (34.0-46.0) % Plt Count 214 (150-450) k/uL Comprehensive Metabolic Panel 09/27/17 Range/Units 04:01 Sodium 142 (137-145) mmol/L Potassium 3.8 (3.5-5.1) mmol/L Chloride 109 H (98-107) mmol/L Carbon Dioxide 22 (22-30) mmol/L BUN 7 (7-17) mg/dL Creatinine 0.70 (0.52-1.04) mg/dL Glucose 98 (74-99) mg/dL Calcium 9.0 (8.4-10.2) mg/dL Current Medications Generic Name Dose Route Start Last Admin Trade Name Freq PRN Reason Stop Dose Admin Albuterol/Ipratropium 3 ml 09/26/17 12:00 09/27/17 15:53 Duoneb 0.5 Mg-3 Mg/3 Ml Soln INHALATION Not Given RT-Q4H [facility] Alprazolam 0.25 mg 09/26/17 07:01 Xanax PO Q6HR PRN Mild Anxiety Alprazolam 0.5 mg 09/26/17 07:01 Xanax PO Q6HR PRN Moderate Anxiety Amiodarone HCl 200 mg 09/25/17 09:00 09/27/17 06:03 Cordarone PO 200 mg BID [facility] Administration Aspirin 81 mg 09/27/17 09:00 09/27/17 06:28 Aspirin PO Not Given DAILY [facility] Haloperidol Lactate 2.5 mg 09/24/17 19:21 09/26/17 08:39 Haldol IM 2.5 mg Q4HR PRN Administration Agitation or Acute Psychosis Ampicillin Sodium/Sulbactam 100 mls @ 100 mls/hr 09/24/17 13:00 09/27/17 09: 03 Sodium 3 gm/ Sodium Chloride IVPB 100 mls/hr Q6H [facility] Administration Sodium Chloride 1,000 ml/ IV 1,000 mls @ 76.1 mls/hr 09/27/17 06:00 09/27/17 08:55 Solution IV 09/27/17 19:08 Not Given .Q13H9M ONE 1 ML/KG/HR Sodium Chloride 1,000 mls @ 50 mls/hr 09/27/17 11:15 Saline 0.9% IV .Q20H [facility] Lisinopril 5 mg 09/26/17 09:00 09/27/17 06:24 Zestril PO 5 mg BID [facility] Administration Lorazepam 1 mg 09/24/17 19:05 09/24/17 22:58 Ativan IV 1 mg Q4HR PRN Administration Anxiety Metoprolol Tartrate 25 mg 09/25/17 09:00 09/27/17 06:07 Lopressor PO 25 mg BID [facility] Administration Miscellaneous Information 1 each 09/24/17 05:16 Potassium Per Protocol MISCELLANE DAILY PRN Per Protocol Protocol Miscellaneous Information 1 each 09/25/17 04:48 Magnesium Per Protocol MISCELLANE DAILY PRN Per Protocol Protocol Miscellaneous Information 1 each 09/27/17 05:21 Magnesium Per Protocol MISCELLANE DAILY PRN Per Protocol Protocol Miscellaneous Information 1 each 09/27/17 05:21 Potassium Per Protocol MISCELLANE DAILY PRN Per Protocol Protocol Miscellaneous Information 1 each 09/27/17 08:26 Rx Info: Iv Contrast Was Given MISCELLANE 09/29/17 08:31 DAILY PRN Per Protocol Naloxone HCl 0.2 mg 09/23/17 23:46 Narcan IV Q2M PRN Opioid Reversal Nitroglycerin 0.4 mg 09/26/17 07:01 Nitrostat SUBLINGUAL Q5M PRN Chest Pain Spironolactone 25 mg 09/27/17 09:00 09/27/17 09:04 Aldactone PO 25 mg DAILY [facility] Administration Intake and Output 09/27/17 09/27/17 09/27/17 06:59 14:59 22:59 Intake Total 840 Output Total 0 Balance 0 840 Intake: IV 50 Intake, IV Titration 790 Amount 0.9% NaCl with KCl 20 Meq 40 /l 1,000 ml @ 200 mls/hr IV .Q5H [facility] Rx#:[id number] Ampicillin-Sulbactam 3 gm 100 In Sodium Chloride 0.9% 100 ml @ 100 mls/hr IVPB Q6H [facility] Rx#:[id number] Magnesium Sulfate-D5w Pmx 100 1 gm In Dextrose/Water 1 100ml.bag @ 100 mls/hr IVPB Q1H [facility] Rx#: [id number] Sodium Chloride 0.9% 1, 500 000 ml @ 100 mls/hr IV . Q10H [facility] Rx#:[id number] Sodium Chloride 0.9% 1, 50 000 ml @ 50 mls/hr IV . Q20H [facility] Rx#:[id number] Output: Urine 0 Other: Voiding Method Bedside Commode Bedside Commode # Voids 1 1 # Bowel Movements 1 Weight 77.2 kg Patient Weight 09/28/17 06:59 Weight 77.2 kg 09/27/17 04:01 09/27/17 04:01
[2017-09-27] MEDS ORDERED: HYDROcodone/APAP 5-325MG 1 EACH TAB PO PRN (16:49)
[2017-09-27] MEDS ORDERED: ACETAMINOPHEN TAB 325 MG TAB PO PRN (16:49)
[2017-09-27] MEDS ORDERED: ACETAMINOPHEN IV (For NPO) 1,000 MG in EMPTY BAG 1 BAG IVPB ONE (16:49)
--- NOTE | 2017-09-27 17:07 | PCN ---
PROCEDURE NOTE Mrs. Machado is a 52-year-old female who presented to the hospital with an out-of- hospital cardiac arrest without any clear-cut triggering factors. No evidence for acute myocardial infarction, acute coronary syndrome, or any new incriminating drugs or electrolyte imbalance. She underwent a single-chamber ICD implantation for primary prevention of sudden cardiac . PROCEDURE: Patient brought to the EP lab in a fasting state. Written informed consent was obtained prior to the procedure. The left shoulder area was prepped and draped as per protocol. 1% lidocaine was used for local anesthesia. A 4 cm incision was made parallel to the deltopectoral groove, about 1.5 cm medial to it. The incision was carried down to the level of the pectoralis muscle. A subfascial pocket was made. Hemostasis was assured. The left axillary vein was accessed at a single point and via appropriately-sized introducer sheath, a [employer] internist and physician leader ICD lead was positioned in the mid RV septum. This was a [employer] model #7122Q, 58 cm in length and serial number [id number]. R-waves were 11.8 mV, pacing impedance 640 ohms, pacing threshold 0.5 V at 0.5 milliseconds. 10 V test was negative. The leads were secured to the underlying pectoralis fascia using 2 nonabsorbable sutures. Pocket was irrigated with antibiotic solution. Lead was connected to the generator ([employer] model number [id number] Q serial #[id number]). The lead and generator were then placed in a subfascial pocket and the wound was closed in 3 layers and dressed per protocol device. Device secured to the pectoralis muscle. DFT testing under anesthesia: A DC fib shock was used to induce ventricular fibrillation. This was adequately and appropriately detected at least sensitivity and successfully internally defibrillated with a 10 joule shock. The charge time of 1.9 seconds and shock impedance of 55 ohms. The device is then programmed to programming parameters for VT/VF detection and backup VVI pacing at 40 beats per minute. MMODL / IJN: [id number] /
[2017-09-27] MEDS ORDERED: ceFAZolin IN SWFI 2 GM/20 ML SYRINGE IVP SCH (18:00)
[2017-09-27] MEDS: HALOPERIDOL LACTATE 5 MG/ML 1 ML VIAL IM PRN (18:43)
[2017-09-27] MEDS: SODIUM CHLORIDE 0.9% 1,000 ML IV SCH (18:46)
[2017-09-27] MEDS: HEPARIN SOD,PORK IN 0.45% NACL 25,000 UNIT in 0.45% NACL 1 500ML.BAG IV SCH (18:48)
--- NOTE | 2017-09-27 23:03 | PN ---
PROGRESS NOTE DATE OF SERVICE: 09/27/2017 REASON FOR FOLLOWUP: Aspiration pneumonia. INTERVAL HISTORY: The patient is afebrile. She is breathing more comfortably. She did have occasional cough, not bringing up any sputum. No chest pain. No abdominal pain. No diarrhea. PHYSICAL EXAMINATION: Blood pressure is 119/73, pulse of 56, temperature 98.3. She is 98% on 2 L nasal cannula. General description is a middle aged female lying in bed in no distress. RESPIRATORY SYSTEM: Unlabored breathing with decreased breath sounds at bases, no wheeze. HEART: S1, S2. Regular rate and rhythm. ABDOMEN: Soft, no tenderness. EXTREMITIES: No edema of the feet. LABS: Hemoglobin 11.4, white count 10.5 with a BUN of 7, creatinine 0.70. Sputum has been K[place]. Blood cultures remain negative. DIAGNOSTIC IMPRESSION AND PLAN: Patient with right lower lobe pneumonia. The patient came to the hospital with cardiac arrest at home and likely component of aspiration pneumonia. The patient at this time will continue Unasyn with oral Augmentin. Continue supportive care. MMODL / IJN: [id number] /
--- NOTE | 2017-09-28 00:02 | P.PN ---
Subjective Progress Note Date: 09/27/17 This patient is a 52-year-old female who was seen yesterday in neurology consultation for evaluation of cardiac arrest and altered mental status following extubation. Patient was extubated yesterday and was showing signs of slight improvement in her overall mental mental status. She was found to have evidence of possible aspiration pneumonia involving the right lower lobe. Infectious disease was consulted yesterday and the patient is currently being covered with Unasyn for treatment of aspiration pneumonia. The exact etiology of her cardiac arrest with torsades remains unclear. Cardiology continues to follow her closely. Her left ventricular systolic function has been shown to be preserved. It is unclear of her exact medication list which is being reviewed by cardiology as to possible etiology for her cardiac arrest. Patient is being switched to oral amiodarone as well as oral beta cristina today by cardiology. She is to continue on heparin. This been a slight elevation of troponins and cardiology will monitor. Patient may require cardiac catheterization to rule out any ischemic etiology for her cardiac arrhythmia. According to her ICU nursing staff she is being considered for a cardiac catheterization tomorrow. She was sent for a CTA angiogram of the chest which came back negative for pulmonary embolism. We will await further recommendations from cardiology. Patient neurologically is more awake today but still gets episodes of somnolence. This evening she does seem to answer questions more appropriately in her speech is much improved as compared to yesterday. Patient likely has some findings of anoxic encephalopathy following her cardiac arrest. She does seem to be doing much better this evening in the ICU. The patient underwent cardiac catheterization this morning. The cardiac cath revealed normal coronary arteries. There was moderately impaired left ventricular systolic function. Patient was recommended by Dr. Rocha to be considered for ICD implantation. Etiology of her cardiomyopathy is nonischemic. She did have a ICD placement today and is now returning back to the intensive care unit. Patient denies any chest pain at this time. She does seem to be doing much better in terms of her cognitive functioning. We will continue close neurological follow-up for the patient during this admission. Patient to remain in the ICU this evening. We will await further recommendations were multiple consultants addressing this patient in the intensive care unit. Her overall prognosis at this time remains guarded. Objective - Vital Signs Vital signs: Vital Signs Temp 97.7 F 09/27/17 12:00 Pulse 66 04/26/18 13:30 Resp 18 09/27/17 13:30 BP 151/88 09/27/17 13:30 Pulse Ox 98 09/27/17 13:30 Intake & Output 09/26/17 09/27/17 09/27/17 18:59 06:59 18:59 Intake Total 2600 200 840 Output Total 225 0 Balance 2375 200 840 Weight 77.2 kg Intake: IV 50 Intake, IV Titration 2600 200 790 Amount 0.9% NaCl with KCl 20 Meq 2000 200 40 /l 1,000 ml @ 200 mls/hr IV .Q5H [facility] Rx#:[id number] Ampicillin-Sulbactam 3 gm 100 100 In Sodium Chloride 0.9% 100 ml @ 100 mls/hr IVPB Q6H [facility] Rx#:[id number] Heparin Sod,Pork in 0.45% 500 NaCl 25,000 unit In 0.45 % NaCl 1 500ml.bag @ 12 UNITS/KG/HR 17.4 mls/hr IV .Q24H [facility] Rx#: [id number] Magnesium Sulfate-D5w Pmx 100 1 gm In Dextrose/Water 1 100ml.bag @ 100 mls/hr IVPB Q1H [facility] Rx#: [id number] Sodium Chloride 0.9% 1, 500 000 ml @ 100 mls/hr IV . Q10H [facility] Rx#:[id number] Sodium Chloride 0.9% 1, 50 000 ml @ 50 mls/hr IV . Q20H [facility] Rx#:[id number] Output: Urine 225 0 Uretheral ([place]) 75 Other: Voiding Method Bedside Commode Bedside Commode Bedside Commode # Voids 1 1 1 # Bowel Movements 1 1 - Exam Physical examination: PHYSICAL EXAMINATION: Patient is resting comfortably in bed. VITAL SIGNS: Blood pressure is [151/88]. Heart rate is [65]. Respiration is [18] . Temperature is [97.7]. HEENT: Head is atraumatic, neck is supple, there were no carotid bruits. CHEST: Lungs are clear to auscultation and percussion. CARDIAC: S1, S2 normal rate and rhythm. There is no murmur. ABDOMEN: Soft and nontender. Bowel sounds are present. EXTREMITIES: There is no pedal edema. Peripheral pulses are present. Neurological examination: Patient has a nonfocal neurological examination today. Patient is much more awake and alert today and is cooperative at this time. She did have an episode of acute agitation and combativeness early this morning. This has since resolved. - Labs CBC & Chem 7: 09/27/17 04:01 09/27/17 04:01 Labs: Abnormal Lab Results - Last 24 Hours (Table) 09/26/17 09/27/17 09/27/17 Range/Units 17:11 04:01 04:01 RBC 3.67 L (3.80-5.40) m/uL Neutrophils # 8.0 H (1.3-7.7) k/uL APTT 56.4 H (22.0-30.0) sec Chloride 109 H (98-107) mmol/L Magnesium 1.4 L (1.6-2.3) mg/dL 09/27/17 Range/Units 04:01 RBC (3.80-5.40) m/uL Neutrophils # (1.3-7.7) k/uL APTT 40.3 H (22.0-30.0) sec Chloride (98-107) mmol/L Magnesium (1.6-2.3) mg/dL Microbiology - Last 24 Hours (Table) 09/24/17 10:38 Blood Culture - Preliminary Blood No Growth after 72 hours 09/24/17 10:19 Blood Culture - Preliminary Blood No Growth after 72 hours Assessment and Plan (1) Cardiac arrest Current Visit: Yes Status: Resolved Code(s): I46.9 - CARDIAC ARREST, CAUSE UNSPECIFIED SNOMED Code(s): 287315768 (2) Acute encephalopathy Current Visit: Yes Status: Resolved Code(s): G93.40 - ENCEPHALOPATHY, UNSPECIFIED SNOMED Code(s): 05409138 (3) Torsades de pointes Current Visit: Yes Status: Acute Code(s): I47.2 - VENTRICULAR TACHYCARDIA SNOMED Code(s): 34965194 (4) Ventricular fibrillation Current Visit: Yes Status: Acute Code(s): I49.01 - VENTRICULAR FIBRILLATION SNOMED Code(s): 65765812 Plan: This patient is a 52-year-old female who suffered an acute cardiac arrest and was initially intubated and transferred into the intensive care unit. She was successfully extubated and is seen by cardiology for further evaluation of acute cardiac arrest. Patient was sent for a cardiac catheterization today. Coronary arteries were normal. It was recommended she have a ICD placement and this was also completed today by cardiology. The patient is now back into the intensive care unit. Her procedure went very well for her. She is now resting comfortably. She denies any further episodes of severe confusion or agitation today. She is to be evaluated by psychiatry. We will continue close neurological follow-up with this patient in the intensive care unit. Her overall prognosis at this time remains guarded.
[2017-09-28] MEDS: AMPICILLIN-SULBACTAM 3 GM in SODIUM CHLORIDE 0.9% 100 ML IVPB SCH ×4 (02:20→18:42)
[2017-09-28] MEDS: IPRATROPIUM-ALBUTEROL 3 ML NEB INHALATION SCH ×5 (03:40→20:24)
[2017-09-28 05:01] LABS: Basophils % (A) 0 %; Eosinophils # (A) 0.2 k/uL (0-0.7); Eosinophils % (A) 2 %; HCT 32.4 % (34.0-46.0); HGB 10.6 gm/dL (11.4-16.0); Lymphocytes # (A) 1.6 k/uL (1.0-4.8); Lymphocytes % (A) 19 %; MCH 31.1 pg (25.0-35.0); MCHC 32.7 g/dL (31.0-37.0); Mean Platelet Volume 8.3; Monocytes # (A) 0.5 k/uL (0-1.0); Monocytes % (A) 6 %; Neutrophils # (A) 5.9 k/uL (1.3-7.7); Neutrophils % (A) 71 %; Platelet Count 208 k/uL (150-450); RBC 3.41 m/uL (3.80-5.40); RDW 13.5 % (11.5-15.5); WBC 8.4 k/uL (3.8-10.6)
[2017-09-28 05:13] LABS: Anion Gap 11 mmol/L; Blood Urea Nitrogen 7 mg/dL (7-17); Calcium 8.8 mg/dL (8.4-10.2); Carbon Dioxide 25 mmol/L (22-30); Chloride 106 mmol/L (98-107); Glucose 87 mg/dL (74-99); Magnesium 1.6 mg/dL (1.6-2.3); Phosphorus 4.9 mg/dL (2.5-4.5); Potassium 3.9 mmol/L (3.5-5.1); Sodium 142 mmol/L (137-145)
[2017-09-28] MEDS: SODIUM CHLORIDE 0.9% 1,000 ML IV SCH (06:55)
[2017-09-28] MEDS ORDERED: Magnesium Replacement Protocol 1 EACH MISC MISCELLANE PRN (06:59)
[2017-09-28] MEDS ORDERED: Potassium Replacement Protocol 1 EACH MISC MISCELLANE PRN (06:59)
[2017-09-28] MEDS ORDERED: POTASSIUM CHLORIDE ER 20 MEQ TAB.ER PO SCH (08:00)
[2017-09-28] MEDS: MAGNESIUM SULFATE-D5W PMX 1 GM in DEXTROSE/WATER 1 100ML.BAG IVPB SCH ×2 (08:19→09:22)
[2017-09-28] MEDS: LISINOPRIL 5 MG TAB PO SCH ×2 (08:20→20:29)
[2017-09-28] MEDS: METOPROLOL TARTRATE 25 MG TAB PO SCH (08:20)
[2017-09-28] MEDS: ASPIRIN 81 MG PO SCH (08:20)
[2017-09-28] MEDS: AMIODARONE 200 MG TAB PO SCH ×2 (08:20→20:29)
[2017-09-28] MEDS: SPIRONOLACTONE 25 MG TAB PO SCH (08:20)
--- NOTE | 2017-09-28 09:10 | XR ---
EXAMINATION TYPE: XR chest 2V DATE OF EXAM: 09/28/2017 COMPARISON: 09/26/2017 TECHNIQUE: PA and lateral views submitted. HISTORY: Pneumonia FINDINGS: Right upper lobe consolidation seen within the left subsegmental changes at the left lung base and ri ght lung base. There is small bilateral effusions. Heart size is stable and there is a cardiac device now noted. Lead overlies the right ventricle. No sizable pneumothorax. Correlate for mild central ve nous congestion. IMPRESSION: 1. Cardiac pacemaker placement with no evidence of pneumothorax. 2. Bilateral areas of consolidation and pleural effusion. Underlying venous congestion in the differe ntial diagnosis.
--- NOTE | 2017-09-28 10:07 | PN ---
PROGRESS NOTE Ms. Machado is a 52-year-old female, who presented with torsade de pointe and cardiac arrest. She subsequently was extubated and recovered neurologically. She subsequently underwent cardiac catheterization that revealed no evidence of high-grade stenosis with an impaired left ventricular systolic function. She was evaluated by Dr. Mcmahan yesterday and underwent placement of an ICD. She is doing well this morning. Her breathing is stable. She is denying any symptoms of chest pain. No dizziness. No palpitation. No arrhythmia. She continues to be at this time on amiodarone 200 mg twice a day, aspirin once a day, lisinopril 5 mg twice a day, metoprolol tartrate 25 mg twice a day and spironolactone 25 mg daily. PHYSICAL EXAMINATION: Blood pressure 131/70 with the heart rate in the 70s. LUNGS: Clear. HEART: Regular rate and rhythm. S1, S2. No S3. No rub. Pacemaker site clean. ABDOMEN: Soft, nontender. EXTREMITIES: No edema. LAB DATA: Lab data revealed a hemoglobin of 10.6. BUN and creatinine 7 and 0.8. Potassium 3.9. IMPRESSION: 1. Status post cardiac arrest with torsade. 2. Nonischemic cardiomyopathy. 3. History of smoking. RECOMMENDATION: The patient will be transferred to telemetry floor. Her level activity will be increased. If she remains stable, I would expect she should be able to be discharged home tomorrow and followed as an outpatient. MMARCELIAL / ADALN: [id number] /
[2017-09-28 10:31] VITALS: BMI 27.6
--- NOTE | 2017-09-28 11:50 | P.PN ---
Subjective Progress Note Date: 09/28/17 Principal diagnosis: V. Fib arrest Patient is a 52-year-old female with a past medical history of congestive heart failure, tobacco abuse, and marijuana use who presented to the ER via EMS with V. fib arrest. She was defibrillated twice in the field with return of spontaneous circulation. From when she was unresponsive to EMS arrival was approximately 5 minutes. It appears that she had return of spontaneous circulation 10 minutes after arrival of EMS. This would be a total down time of approximately 15 minutes. On arrival to the ER patient was still significantly confused and was intubated. EKG was obtained which showed a QTC of 462 which was significantly improved. There is concern for possible source. She was given 2 g of magnesium. Chest x-ray was obtained which showed no acute process. Cardiology was contacted. She was admitted to the ICU for further monitoring and care. Laboratory analysis showed an elevated white blood cell count, elevated glucose, low potassium, and elevated liver enzymes. Urinalysis showed possible urinary tract infection. After admission to the ICU she had one episode of hypotension requiring IV fluid resuscitation. Initial echocardiogram showed a preserved ejection fraction. She was subsequently extubated on 09/24. After that point in time she was noted to have some intermittent episodes of confusion. She was also found to have a pneumonia and was started on IV antibiotics. Infectious disease was consulted. She underwent an abdominal ultrasound which showed. Cholecystic fluid and she was diagnosed with chronic cholecystitis. She was seen by Dr. Turpin general surgery who recommended laparoscopic cholecystectomy once stable and this could be completed as an outpatient. Her troponins were slightly elevated and she subsequently underwent a cardiac cath on 09/27 which showed normal coronaries but an ejection fraction of 40%. She therefore had an ICD placed on 09/27. She is currently awaiting to be seen by psychiatry. There was some concern with her competency to make decisions. Patient seen and examined at bedside. She denies any chest pain, shortness of breath, nausea, vomiting, or diarrhea. Her last bowel movement was yesterday. She is having a pulling sensation in her left chest where her stitches are. Objective - Vital Signs Vital signs: Vital Signs Temp 97.8 F 09/28/17 04:00 Pulse 68 09/28/17 07:58 Resp 22 09/28/17 07:00 BP 149/82 09/28/17 07:00 Pulse Ox 95 09/28/17 07:00 Intake & Output 09/27/17 09/28/17 09/28/17 18:59 06:59 18:59 Intake Total 1240 970 Output Total 550 Balance 1240 420 Weight 77.2 kg Intake: IV 640 970 0.9% NaCl with KCl 20 Meq 40 /l 1,000 ml @ 200 mls/hr IV .Q5H [facility] Rx#:[id number] ACETAMINOPHEN IV (For NPO 100 ) 1,000 mg In Empty Bag 1 bag @ 400 mls/hr IVPB ONCE ONE Rx#:[id number] Ampicillin-Sulbactam 3 gm 100 200 In Sodium Chloride 0.9% 100 ml @ 100 mls/hr IVPB Q6H [facility] Rx#:[id number] Cefazolin 2 Gram one time 20 Sodium Chloride 0.9% 1, 150 650 000 ml @ 50 mls/hr IV . Q20H [facility] Rx#:[id number] Intake, IV Titration 600 Amount Magnesium Sulfate-D5w Pmx 100 1 gm In Dextrose/Water 1 100ml.bag @ 100 mls/hr IVPB Q1H [facility] Rx#: [id number] Sodium Chloride 0.9% 1, 500 000 ml @ 100 mls/hr IV . Q10H [facility] Rx#:[id number] Output: Urine 550 Other: Voiding Method Bedside Commode Bedside Commode # Voids 1 1 # Bowel Movements 1 - Exam General: non toxic, no distress, appears older than stated age Derm: warm, dry Head: atraumatic, normocephalic, symmetric Eyes: EOMI, no lid lag, anicteric sclera Mouth: no lip lesion, mucus membranes moist Cardiovascular: S1S2 reg, no murmur, positive posterior tibial pulse bilateral, Lungs: CTA bilateral, no rhonchi, no rales , no accessory muscle use Abdominal: soft, nontender to palpation, no guarding, no appreciable organomegaly Ext: no gross muscle atrophy, no edema, no contractures, left arm is in sling. A dressing over left chest wall. Neuro: CN II-XI grossly intact, no focal neuro deficits Psych: Alert, oriented, appropriate affect - Labs CBC & Chem 7: 09/28/17 04:38 09/28/17 04:38 Labs: Abnormal Lab Results - Last 24 Hours (Table) 09/28/17 09/28/17 Range/Units 04:38 04:38 RBC 3.41 L (3.80-5.40) m/uL Hgb 10.6 L (11.4-16.0) gm/dL Hct 32.4 L (34.0-46.0) % Phosphorus 4.9 H (2.5-4.5) mg/dL Microbiology - Last 24 Hours (Table) 09/24/17 10:38 Blood Culture - Preliminary Blood No Growth after 72 hours 09/24/17 10:19 Blood Culture - Preliminary Blood No Growth after 72 hours Assessment and Plan Assessment: Aborted sudden cardiac secondary to V. fib arrest -Status post AICD placement -Off amiodarone on beta cristina once cardiology in agreement -Cardiology recommendations Cardiomyopathy with EF of 40%, undetermined cause -On beta cristina, OVI inhibitor, and Aldactone -Outpatient follow-up with cardiology Pneumonia, possible aspiration or gram-negative -Continue with Unasyn, plan is for Augmentin on discharge -Infectious disease recommendations appreciated Chronic cholecystitis -Outpatient follow-up with Dr. Haynes for possible cholecystectomy Normocytic anemia, dilutional secondary to repeated blood draws -Follow intermittent CBC Transaminitis, likely ischemic in origin -Liver enzymes are trending near normal and do not need to be rechecked at this point in time Toxic metabolic encephalopathy -Appears to be resolved on my exam -Dr. Aiken was concerned about patient's competency -Awaiting psych eval -May be component of anoxic encephalopathy Acute respiratory failure, resolved Leukocytosis, resolved Sepsis ruled out, due to normal temperature, normal heart rate, and normal respiratory rate on arrival Urinary tract infection ruled out with normal urine culture Elevated troponin-cardiac cath negative Acute hypotension DVT prophylaxis: Heparin Discussed with: Patient, nursing Anticipated discharge: 24-[address]: home A total of 45 minutes was spent on the care of this complex patient more than 50 % of the time was spent in counseling and care coordination.
--- NOTE | 2017-09-28 13:10 | P.PN ---
Subjective Progress Note Date: 09/28/17 Principal diagnosis: Acute hypoxic respiratory failure secondary to cardiac arrest. This is a 52-year-old female brought in to the ER by EMS in cardiac arrest. Apparently the patient was found unresponsive at home, and she had agonal breathing, pinpoint pupils, and evidence of torsade. Patient was cardioverted twice and upon arrival to the ER she was noted to be in sinus rhythm. Patient is known to have history of marijuana abuse. And no history of abuse of any other drugs. Patient was seen by cardiology, placed on amiodarone, and there was no evidence of any ischemic changes noted on the EKG. Cardiology felt that this is a cardiac arrest with torsade exact etiology was not clear. Troponins were noted to be slightly elevated. There was a bit of a concern about anoxic encephalopathy. Patient was on mechanical ventilation all along, and I evaluated the patient this morning, her blood pressure was noted to be low, given fluid boluses, pressure came up nicely, discontinued her lorazepam and her propofol drip, and awakened the patient within one hour. Evaluated the patient, she was arousable, and bit lethargic, but followed all instructions. There was no clear-cut evidence of any significant anoxic encephalopathy. Hence I plan to place the patient on a weaning mode utilizing a pressure support since the patient has a small endotracheal tube. If tolerated, and no arrhythmias noted, and the patient remains hemodynamically stable, I plan to extubate the patient hopefully today. Not much history can be obtained from the patient, but I was able to obtain a lot of information from the chart. Patient was reevaluated today on 09/25/2017, patient was extubated yesterday basically couple of hours after I rounded on her. Patient was awakened, given a short the pressure support and CPAP trial, and proceeded to extubating the patient. She has done quite well over the last 24 hours, patient had episodes of agitation last night to given Xanax and Ativan. Today she is a bit slow, but she is appropriate. Still cannot recall the exact events of what actually happened yesterday. Patient told me that she does not abuse any drugs, and she does not drink any alcohol, she had no previous similar episodes in the past. The drug screen came back positive however for amphetamine, benzodiazepine, and cannabinoids. Today's labs showed relatively normal CBC however her hemoglobin is down to 11. PTT remains at 53.7 therapeutic, basic metabolic profile is relatively normal, bicarb however is 19, renal profile is normal. Considering the electrolytes, and considering the elevated pH and the urine, we may be dealing with a picture of renal tubular acidosis. At this point, this has no clinical significance. Chest x-ray today showed a right hilar fullness, continues to have a right lower lobe opacity, remains on antibiotics for presumptive aspiration. However considering the right hilar fullness, and the presentation, I felt it would be worthwhile looking further into this by doing a CT of the chest. That is to evaluate for possible thromboembolic disease since we have no clear-cut explanation of what truly happened to this patient on presentation. And at the same time we will evaluate the right hilar fullness. And put the patient to address. In the meantime, the patient remains on heparin. Patient was reevaluated today on 09/26/2017, remains off mechanical ventilation now for the last 2 days, doing relatively well from the pulmonary perspective however, she had a CT of the chest yesterday which confirmed that the patient did have what seems to be aspiration pneumonia with bihilar consolidation noted bilaterally right more so than left. The CT of the chest ruled out pulmonary embolism. Patient had intermittent episodes of confusion and agitation last night and early this morning, she did receive Haldol, and has been receiving Ativan intermittently for agitation. Patient remains on soft restraints, and she has a sitter at bedside. According to the nurses she was quite confused last night, and wanted to leave the hospital. Hence Haldol was given and seems to work fine. Apparently remains a bit confused, patient new that she was at [facility], but she had no idea what year it is , she did know the month that this is September, and she did not know the date. According to the nurse she was much more confused last night. Today I recommended a psychiatric evaluation, and recommended that we continue sitter monitoring the patient. At this point in time, the patient is not mentally competent to make her decision about discharge or leaving the hospital AMA. I also discussed her condition with the admitting physician. Chest x-ray, CT of the chest, all labs including CBC and complete metabolic profile were reviewed, and they were relatively unremarkable not much metabolically to explain her mental condition and confusion. However I strongly believe that the patient may have sustained some component of anoxic brain injury as well as aspiration pneumonia from her initial event of cardiac arrest/torsade. Patient is scheduled to undergo cardiac catheterization in the morning by Dr. Rocha. Patient remains on antibiotics/Unasyn for aspiration pneumonia. Patient is now being followed by many consultants including neurology, cardiology, pulmonary/critical care, and I would like to add psychiatric evaluation. Reevaluated today on 09/27/2017, patient is definitely more awake today, in good spirits, relatively asymptomatic, and she had a cardiac catheterization today which showed normal coronaries, but poor LV function, and cardiomyopathy. The receiving manager is recommending ICD placement. The exact etiology of her LV dysfunction is not clear. Mentation-pérez, the patient seems to be almost back to normal. She is alert, oriented 3, and in no form of distress. She is definitely more appropriate today compared to yesterday. And she understood the plan of requiring ICD placement to hopefully avoid cardiac arrest again. In the future. CBC is relatively normal basic metabolic profile is normal. Reevaluated today on 09/28/2017, patient is doing extremely well, he is presently an overflow from [employer], had her AICD implanted yesterday, postoperative course has been uneventful. Patient is doing great, alert oriented, and not confused anymore. She is asymptomatic. Labs were reviewed she had a relatively normal CBC and normal basic metabolic profile. Normal renal profile. Chest x-ray showing improvement in her bilateral areas of consolidation and small pleural effusion. Objective - Vital Signs Vital signs: Vital Signs Temp 97.9 F 09/28/17 12:00 Pulse 66 09/28/17 12:14 Resp 19 09/28/17 12:00 BP 137/90 09/28/17 12:00 Pulse Ox 96 09/28/17 12:00 Intake & Output 09/27/17 09/28/17 09/28/17 18:59 06:59 18:59 Intake Total 6498 437 4698 Output Total 550 700 Balance 1240 420 490 Weight 77.2 kg 77.8 kg Intake: IV 640 970 350 0.9% NaCl with KCl 20 Meq 40 /l 1,000 ml @ 200 mls/hr IV .Q5H [facility] Rx#:[id number] ACETAMINOPHEN IV (For NPO 100 ) 1,000 mg In Empty Bag 1 bag @ 400 mls/hr IVPB ONCE ONE Rx#:[id number] Ampicillin-Sulbactam 3 gm 100 200 100 In Sodium Chloride 0.9% 100 ml @ 100 mls/hr IVPB Q6H [facility] Rx#:[id number] Cefazolin 2 Gram one time 20 Magnesium Sulfate-D5w Pmx 200 1 gm In Dextrose/Water 1 100ml.bag @ 100 mls/hr IVPB Q1H [facility] Rx#: [id number] Sodium Chloride 0.9% 1, 150 650 50 000 ml @ 50 mls/hr IV . Q20H [facility] Rx#:[id number] Intake, IV Titration 600 Amount Magnesium Sulfate-D5w Pmx 100 1 gm In Dextrose/Water 1 100ml.bag @ 100 mls/hr IVPB Q1H [facility] Rx#: [id number] Sodium Chloride 0.9% 1, 500 000 ml @ 100 mls/hr IV . Q10H [facility] Rx#:[id number] Oral 840 Output: Urine 550 700 Other: Voiding Method Bedside Commode Bedside Commode Bedside Commode # Voids 1 1 3 # Bowel Movements 1 - Exam Physical Exam: Revealed a 52-year-old female, in no form of distress. Head: Atraumatic, normocephalic. HEENT:[Neck is supple.] [No neck masses.] [No thyromegaly.] [No JVD.] No carotid bruits, moist mucous membranes, no cervical lymphadenopathy PERRLA, EOMI , no icterus. Chest: [Diminished breath sounds at the bases especially at the right base, no rhonchi, no wheezes. Symmetrical chest expansion, no chest wall tenderness.] Cardiac Exam: [Normal S1 and S2, no S3 gallop, no murmur.] Abdomen: [Soft, nontender, no megaly, no rebound, no guarding, positive bowel sounds, Extremities: [No clubbing, no edema, no cyanosis.] Neurological Exam: Alert, oriented 3, no gross focal neurologic deficits. Lymphatics: No lymphadenopathy. Psychiatric: Normal mood, affect, normal mental status examination, intact judgment and insight. - Labs CBC & Chem 7: 09/28/17 04:38 09/28/17 04:38 Labs: Abnormal Lab Results - Last 24 Hours (Table) 09/28/17 09/28/17 Range/Units 04:38 04:38 RBC 3.41 L (3.80-5.40) m/uL Hgb 10.6 L (11.4-16.0) gm/dL Hct 32.4 L (34.0-46.0) % Phosphorus 4.9 H (2.5-4.5) mg/dL Microbiology - Last 24 Hours (Table) 09/24/17 10:38 Blood Culture - Preliminary Blood No Growth after 96 hours 09/24/17 10:19 Blood Culture - Preliminary Blood No Growth after 96 hours Assessment and Plan Assessment: Impression: 1: Acute hypoxic respiratory failure secondary to cardiac arrest secondary to cardiac arrhythmia, possible torsade. Secondary to severe cardiomyopathy and LV dysfunction but the patient was found to have normal coronaries. 2: Acute aspiration pneumonia, remains on Unasyn being followed by infectious disease. 3 acute leukocytosis secondary to aspiration pneumonia. Improving 4 elevated troponin level secondary to cardiac arrest, rule out underlying coronary artery disease, patient is being followed by cardiology and addressing that issue itself. 5 acute hypotension, responded to holding narcotics and fluid boluses, strongly doubt sepsis. I believe the hypertension is secondary to hypovolemia and secondary to narcotics. Resolved. 6 right hilar fullness, hence a CT angiogram was done, and it showed mostly findings of aspiration with bihilar consolidation right more so than left. Remains on antibiotics 7 acute mental status change most likely secondary to mild anoxic brain injury significantly improved 8 possible component of underlying depression, presently asymptomatic. 9 status post AICD implantation placed on 09/27/2017. 10 severe cardiomyopathy and LV dysfunction, status post AICD implantation. Recommendation: Continue present supportive care measures, consider discharge planning once cleared by cardiology over the weekend. Continue antibiotics for her presumptive aspiration pneumonia for 7 more days postdischarge. Patient can be treated with Augmentin. Time with Patient: Less than 30
[2017-09-28] MEDS: HEPARIN SODIUM,PORCINE 5,000 UNIT/ML 1 ML VIAL SQ SCH (15:16)
--- NOTE | 2017-09-28 15:16 | P.CN ---
Psychiatric Consult - . Consult date: 09/28/17 Consult:: 09/28/17 14:58 Identification: Patient is a 52-year-old female who was admitted after she had a cardiac arrest at home, was brought to the hospital where she required intubation. Reason for Consult: Confusion, AMS History of Present Illness: Patient's chart was reviewed, I spoke with the nursing staff yesterday and the patient was seen and interviewed in her room no family members were present. Patient states that she does not recall anything other than that she had been at home in her usual state of health and then awakened in the hospital. She states that her son told her that she "fell out" and he performed CPR on her and called 911. Patient states that she has a history of congestive heart failure and states that she does not recall having any symptoms prior to her admission. She states that she did get confused and agitated the other day but states that she is feeling much better today. Patient was able to tell me that she had a cardiac catheterization yesterday and had a pacemaker placed, in fact the patient had an ICD placed. Patient states that she is not feeling confused today, has been up walking in the hallway and has been eating without difficulty. She states that she has been sleeping in the hospital. Patient states that she's been doing puzzles as well as watching television and has not had difficulty focusing or concentrating. Patient had no complaints at this time. She states that she has no recollection of what occurred until she awakened in the hospital and states even the first few days of her admission are not clear to her. Patient reports no prior history of any psychiatric treatment and does not endorse any symptoms of depression, dylan, psychosis, anxiety or OCD currently or in the past. Past Psychiatric History: Patient denies any prior inpatient or outpatient psychiatric treatment states she has never been placed on any psychotropic medications. Past Medical/Surgical History: Patient states that her only medical history was of congestive heart failure and she is status post Family History: Patient denies any family history of psychiatric disorders or alcohol or drug use disorders and states that no one in the family has completed suicide Social History: Patient was born and raised in [place] and states that her mother is alive and her father is . She has 3 brothers. 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 She states that she has worked there for 5 years on a full-time basis. Patient states that he has never but had a partner of 30 years who in May 2017 from heart problems. He was 53 years of age. She has 3 children with her partner ages 22, 20 and 10 also live with the patient. Patient denies any history of abuse. She reports no financial problems. Substance Use History: Patient states that she has not used alcohol after having her children, she states that she uses marijuana occasionally on the weekends and denies any other drug use history or IV drug use history. Patient does use tobacco products. Legal History: Patient reports a DUI in 1987 Mental status: Appearance/Attitude: Patient was sitting up in bed in no acute distress made good eye contact and was cooperative. Behavior: Patient does not exhibit any psychomotor agitation or retardation. Speech/Language: Patient's speech is spontaneous and normal volume and rhythm and she is coherent Thought Process: Patient is goal-directed there is no evidence of loose association or flight of ideas Thought Content: Patient denies any auditory or visual hallucinations no delusions or paranoid ideation were elicited. Patient reports that she is feeling much better, states that she is not confused, states that she is eating well and states that she is been sleeping well. Suicidal/Homicidal Ideation: Patient denies any current suicidal or homicidal ideation. Sensorium/Cognition: Patient is alert and oriented to person, place, and month and year patient thought the date was September 22, she knew who the president was. Patient needed some prompting to recall that she had a cardiac catheterization yesterday and thought that she had a pacemaker placed not an ICD. Further cognitive testing was not performed Mood/Affect: Patient's mood was pleasant and her affect was appropriate Insight/Judgment: Patient's insight and judgment are fair Assessment: Patient was admitted after a cardiac arrest at home, she was intubated in the ICU and had episodes of agitation requiring IM Haldol on 3 occasions. These were on the , the and September 27. Patient was most likely delirious, secondary to her cardiac arrest, medications and this resulted in her becoming confused and agitated. Patient did not recall without prompting that she had a cardiac catheterization yesterday and states that she has a pacemaker not an ICD. Patient is alert, there is no alteration in her sensorium, she states that she has been eating and up walking in the roque. Patient states that she is not having any visual hallucinations, she states that she is not feeling agitated or irritable. Diagnosis: Delirium, multifactorial resolving Plan: Patient had a delirium most likely secondary to her cardiac arrest, medications and had episodes of agitation requiring IM Haldol. Patient's delirium is resolving as she is no alteration in her sensorium today, was oriented to person place and month and year was not able to tell me what date it was. She states that she is still cloudy about what occurred at home and what has occurred in the hospital for several days. Patient needed prompting to tell me what procedure she had yesterday and patient states that she has a pacemaker not an ICD. I would recommend that benzodiazepines be avoided as this may cause increased confusion. Patient does not require oral antipsychotics as there is no evidence of agitation at this time. I discussed with the patient that once she is discharged she should avoid all alcohol, marijuana or other street drugs and I would not recommend discharging this patient on benzodiazepines. Patient does not have a history of any psychiatric disorders and there is no evidence of a depressive disorder, psychotic disorder or manic disorder or any anxiety at this time. I will sign off the case and if there are any further questions or concerns please and hesitate to contact me. 09/28/17 15:01 09/28/17 15:08 09/28/17 15:10
--- NOTE | 2017-09-28 16:11 | PN ---
PROGRESS NOTE DATE OF SERVICE: 09/28/2017 REASON FOR FOLLOWUP: Possible aspiration pneumonia. INTERVAL HISTORY: The patient is afebrile. She seems to be breathing more comfortably. Patient did have occasional cough but not bringing up any sputum. Patient denies having any abdominal pain. No nausea or vomiting. No diarrhea. The patient is status post single-chamber ICD insertion, which the patient has tolerated. PHYSICAL EXAMINATION: Blood pressure 137/90 with a pulse of 62, temperature 97.9. She is 96% on room air. General description is a middle-aged female up in the bed in no distress. RESPIRATORY SYSTEM: Unlabored breathing with decreased breath sounds at the bases. No wheeze or crackle. HEART: S1, S2. Regular rate and rhythm. ABDOMEN: Soft. No tenderness. EXTREMITIES: No edema of the feet. LABS: Hemoglobin 10.6, white count 8.4, BUN of 7, creatinine 0.80. Blood culture has been negative. Sputum is julieta, likely colonizer. DIAGNOSTIC IMPRESSION AND PLAN: Patient with right lower lobe pneumonia. Patient admitted to hospital after having cardiac arrest at home, likely a component of aspiration pneumonia, with overall improvement on the Unasyn. Will start switching her to oral Augmentin at discharge for another 4 to 5 days to finish a course of therapy. Continue supportive care. MMODL / IJN: [id number] /
[2017-09-29] MEDS: IPRATROPIUM-ALBUTEROL 3 ML NEB INHALATION SCH ×4 (00:10→12:04)
--- NOTE | 2017-09-29 00:13 | P.PN ---
Subjective Progress Note Date: 09/28/17 This patient is a 52-year-old female who was seen yesterday in neurology consultation for evaluation of cardiac arrest and altered mental status following extubation. Patient was extubated yesterday and was showing signs of slight improvement in her overall mental mental status. She was found to have evidence of possible aspiration pneumonia involving the right lower lobe. Infectious disease was consulted yesterday and the patient is currently being covered with Unasyn for treatment of aspiration pneumonia. The exact etiology of her cardiac arrest with torsades remains unclear. Cardiology continues to follow her closely. Her left ventricular systolic function has been shown to be preserved. It is unclear of her exact medication list which is being reviewed by cardiology as to possible etiology for her cardiac arrest. Patient is being switched to oral amiodarone as well as oral beta cristina today by cardiology. She is to continue on heparin. This been a slight elevation of troponins and cardiology will monitor. Patient may require cardiac catheterization to rule out any ischemic etiology for her cardiac arrhythmia. According to her ICU nursing staff she is being considered for a cardiac catheterization tomorrow. She was sent for a CTA angiogram of the chest which came back negative for pulmonary embolism. We will await further recommendations from cardiology. Patient neurologically is more awake today but still gets episodes of somnolence. This evening she does seem to answer questions more appropriately in her speech is much improved as compared to yesterday. Patient likely has some findings of anoxic encephalopathy following her cardiac arrest. She does seem to be doing much better this evening in the ICU. The patient underwent cardiac catheterization this morning. The cardiac cath revealed normal coronary arteries. There was moderately impaired left ventricular systolic function. Patient was recommended by Dr. Rocha to be considered for ICD implantation. Etiology of her cardiomyopathy is nonischemic. She did have a ICD placement today and is now returning back to the intensive care unit. Patient denies any chest pain at this time. She does seem to be doing much better in terms of her cognitive functioning. We will continue close neurological follow-up for the patient during this admission. Patient to remain in the ICU this evening. Patient was seen by psychiatry today. She does not require any antipsychotic medications at this time. She seems to be showing good improvement in her overall cognitive functioning today. She is being considered for possible discharge home tomorrow. We will await further recommendations were multiple consultants addressing this patient in the intensive care unit. Her overall prognosis at this time remains guarded. Objective - Vital Signs Vital signs: Vital Signs Temp 98.1 F 09/28/17 20:00 Pulse 72 09/28/17 20:35 Resp 18 09/28/17 20:00 BP 152/88 09/28/17 20:00 Pulse Ox 97 09/28/17 20:00 Intake & Output 09/28/17 09/28/17 09/29/17 06:59 18:59 06:59 Intake Total 970 1890 Output Total 550 1900 Balance 420 -10 Weight 77.8 kg Intake: IV 970 450 ACETAMINOPHEN IV (For NPO 100 ) 1,000 mg In Empty Bag 1 bag @ 400 mls/hr IVPB ONCE ONE Rx#:[id number] Ampicillin-Sulbactam 3 gm 200 200 In Sodium Chloride 0.9% 100 ml @ 100 mls/hr IVPB Q6H JOZEF Rx#:[id number] Cefazolin 2 Gram one time 20 Magnesium Sulfate-D5w Pmx 200 1 gm In Dextrose/Water 1 100ml.bag @ 100 mls/hr IVPB Q1H JOZEF Rx#: [id number] Sodium Chloride 0.9% 1, 650 50 000 ml @ 50 mls/hr IV . Q20H JOZEF Rx#:[id number] Oral 1440 Output: Urine 550 1900 Other: Voiding Method Bedside Commode Bedside Commode Bedside Commode # Voids 1 3 # Bowel Movements 1 - Exam Physical examination: PHYSICAL EXAMINATION: Patient is resting comfortably in bed. VITAL SIGNS: Blood pressure is [152/88]. Heart rate is [60]. Respiration is [18] . Temperature is [98.1]. HEENT: Head is atraumatic, neck is supple, there were no carotid bruits. CHEST: Lungs are clear to auscultation and percussion. CARDIAC: S1, S2 normal rate and rhythm. There is no murmur. ABDOMEN: Soft and nontender. Bowel sounds are present. EXTREMITIES: There is no pedal edema. Peripheral pulses are present. Neurological examination: Patient has a nonfocal neurological examination today. Patient is much more awake and alert today and is cooperative at this time. She did have an episode of acute agitation and combativeness early this morning. This has since resolved. - Labs CBC & Chem 7: 09/28/17 04:38 09/28/17 04:38 Labs: Abnormal Lab Results - Last 24 Hours (Table) 09/28/17 09/28/17 Range/Units 04:38 04:38 RBC 3.41 L (3.80-5.40) m/uL Hgb 10.6 L (11.4-16.0) gm/dL Hct 32.4 L (34.0-46.0) % Phosphorus 4.9 H (2.5-4.5) mg/dL Microbiology - Last 24 Hours (Table) 09/24/17 10:38 Blood Culture - Preliminary Blood No Growth after 96 hours 09/24/17 10:19 Blood Culture - Preliminary Blood No Growth after 96 hours Assessment and Plan (1) Cardiac arrest Current Visit: Yes Status: Resolved Code(s): I46.9 - CARDIAC ARREST, CAUSE UNSPECIFIED SNOMED Code(s): 509270643 (2) Acute encephalopathy Current Visit: Yes Status: Resolved Code(s): G93.40 - ENCEPHALOPATHY, UNSPECIFIED SNOMED Code(s): 61881419 (3) Torsades de pointes Current Visit: Yes Status: Acute Code(s): I47.2 - VENTRICULAR TACHYCARDIA SNOMED Code(s): 34421155 (4) Ventricular fibrillation Current Visit: Yes Status: Acute Code(s): I49.01 - VENTRICULAR FIBRILLATION SNOMED Code(s): 10770314 Plan: This patient is a 52-year-old female who suffered an acute cardiac arrest and was initially intubated and transferred into the intensive care unit. She was successfully extubated and is seen by cardiology for further evaluation of acute cardiac arrest. Patient was sent for a cardiac catheterization today. Coronary arteries were normal. It was recommended she have a ICD placement and this was also completed today by cardiology. The patient is now back into the intensive care unit. Her procedure went very well for her. She is now resting comfortably. She denies any further episodes of severe confusion or agitation today. She is to be evaluated by psychiatry. Their recommendations were reviewed today. She is being considered for possible discharge home tomorrow. We will continue close neurological follow-up with this patient in the intensive care unit. Her overall prognosis at this time remains guarded.
[2017-09-29] MEDS: AMPICILLIN-SULBACTAM 3 GM in SODIUM CHLORIDE 0.9% 100 ML IVPB SCH ×3 (00:37→12:21)
[2017-09-29] MEDS: HEPARIN SODIUM,PORCINE 5,000 UNIT/ML 1 ML VIAL SQ SCH ×2 (00:37→08:16)
[2017-09-29] MEDS: METOPROLOL TARTRATE 25 MG TAB PO SCH ×2 (00:40→08:16)
[2017-09-29 04:48] LABS: Basophils # (A) 0.1 k/uL (0-0.2); Basophils % (A) 1 %; Eosinophils # (A) 0.3 k/uL (0-0.7); Eosinophils % (A) 2 %; HCT 34.3 % (34.0-46.0); HGB 11.3 gm/dL (11.4-16.0); Lymphocytes # (A) 1.9 k/uL (1.0-4.8); Lymphocytes % (A) 19 %; MCH 30.8 pg (25.0-35.0); MCV 93.5 fL (80.0-100.0); Mean Platelet Volume 8.2; Monocytes # (A) 0.7 k/uL (0-1.0); Monocytes % (A) 6 %; Neutrophils # (A) 7.3 k/uL (1.3-7.7); Neutrophils % (A) 70 %; Platelet Count 243 k/uL (150-450); RBC 3.67 m/uL (3.80-5.40); RDW 13.6 % (11.5-15.5); WBC 10.5 k/uL (3.8-10.6)
[2017-09-29 04:57] LABS: Anion Gap 12 mmol/L; Blood Urea Nitrogen 7 mg/dL (7-17); Calcium 9.4 mg/dL (8.4-10.2); Carbon Dioxide 29 mmol/L (22-30); Chloride 102 mmol/L (98-107); Glucose 92 mg/dL (74-99); Magnesium 1.5 mg/dL (1.6-2.3); Phosphorus 4.6 mg/dL (2.5-4.5); Potassium 3.8 mmol/L (3.5-5.1); Sodium 143 mmol/L (137-145)
[2017-09-29] MEDS ORDERED: POTASSIUM CHLORIDE ER 20 MEQ TAB.ER PO SCH (07:00)
[2017-09-29] MEDS: MAGNESIUM SULFATE-D5W PMX 1 GM in DEXTROSE/WATER 1 100ML.BAG IVPB SCH ×2 (07:02→08:14)
[2017-09-29] MEDS: ASPIRIN 81 MG PO SCH (08:16)
[2017-09-29] MEDS: AMIODARONE 200 MG TAB PO SCH (08:16)
[2017-09-29] MEDS: SPIRONOLACTONE 25 MG TAB PO SCH (08:17)
[2017-09-29] MEDS ORDERED: LISINOPRIL 10 MG TAB PO SCH (09:00)
--- NOTE | 2017-09-29 11:27 | P.PN ---
Subjective Progress Note Date: 09/29/17 Principal diagnosis: Acute hypoxic respiratory failure secondary to cardiac arrest. This is a 52-year-old female brought in to the ER by EMS in cardiac arrest. Apparently the patient was found unresponsive at home, and she had agonal breathing, pinpoint pupils, and evidence of torsade. Patient was cardioverted twice and upon arrival to the ER she was noted to be in sinus rhythm. Patient is known to have history of marijuana abuse. And no history of abuse of any other drugs. Patient was seen by cardiology, placed on amiodarone, and there was no evidence of any ischemic changes noted on the EKG. Cardiology felt that this is a cardiac arrest with torsade exact etiology was not clear. Troponins were noted to be slightly elevated. There was a bit of a concern about anoxic encephalopathy. Patient was on mechanical ventilation all along, and I evaluated the patient this morning, her blood pressure was noted to be low, given fluid boluses, pressure came up nicely, discontinued her lorazepam and her propofol drip, and awakened the patient within one hour. Evaluated the patient, she was arousable, and bit lethargic, but followed all instructions. There was no clear-cut evidence of any significant anoxic encephalopathy. Hence I plan to place the patient on a weaning mode utilizing a pressure support since the patient has a small endotracheal tube. If tolerated, and no arrhythmias noted, and the patient remains hemodynamically stable, I plan to extubate the patient hopefully today. Not much history can be obtained from the patient, but I was able to obtain a lot of information from the chart. Patient was reevaluated today on 09/25/2017, patient was extubated yesterday basically couple of hours after I rounded on her. Patient was awakened, given a short the pressure support and CPAP trial, and proceeded to extubating the patient. She has done quite well over the last 24 hours, patient had episodes of agitation last night to given Xanax and Ativan. Today she is a bit slow, but she is appropriate. Still cannot recall the exact events of what actually happened yesterday. Patient told me that she does not abuse any drugs, and she does not drink any alcohol, she had no previous similar episodes in the past. The drug screen came back positive however for amphetamine, benzodiazepine, and cannabinoids. Today's labs showed relatively normal CBC however her hemoglobin is down to 11. PTT remains at 53.7 therapeutic, basic metabolic profile is relatively normal, bicarb however is 19, renal profile is normal. Considering the electrolytes, and considering the elevated pH and the urine, we may be dealing with a picture of renal tubular acidosis. At this point, this has no clinical significance. Chest x-ray today showed a right hilar fullness, continues to have a right lower lobe opacity, remains on antibiotics for presumptive aspiration. However considering the right hilar fullness, and the presentation, I felt it would be worthwhile looking further into this by doing a CT of the chest. That is to evaluate for possible thromboembolic disease since we have no clear-cut explanation of what truly happened to this patient on presentation. And at the same time we will evaluate the right hilar fullness. And put the patient to address. In the meantime, the patient remains on heparin. Patient was reevaluated today on 09/26/2017, remains off mechanical ventilation now for the last 2 days, doing relatively well from the pulmonary perspective however, she had a CT of the chest yesterday which confirmed that the patient did have what seems to be aspiration pneumonia with bihilar consolidation noted bilaterally right more so than left. The CT of the chest ruled out pulmonary embolism. Patient had intermittent episodes of confusion and agitation last night and early this morning, she did receive Haldol, and has been receiving Ativan intermittently for agitation. Patient remains on soft restraints, and she has a sitter at bedside. According to the nurses she was quite confused last night, and wanted to leave the hospital. Hence Haldol was given and seems to work fine. Apparently remains a bit confused, patient new that she was at [facility], but she had no idea what year it is , she did know the month that this is September, and she did not know the date. According to the nurse she was much more confused last night. Today I recommended a psychiatric evaluation, and recommended that we continue sitter monitoring the patient. At this point in time, the patient is not mentally competent to make her decision about discharge or leaving the hospital AMA. I also discussed her condition with the admitting physician. Chest x-ray, CT of the chest, all labs including CBC and complete metabolic profile were reviewed, and they were relatively unremarkable not much metabolically to explain her mental condition and confusion. However I strongly believe that the patient may have sustained some component of anoxic brain injury as well as aspiration pneumonia from her initial event of cardiac arrest/torsade. Patient is scheduled to undergo cardiac catheterization in the morning by Dr. Rocha. Patient remains on antibiotics/Unasyn for aspiration pneumonia. Patient is now being followed by many consultants including neurology, cardiology, pulmonary/critical care, and I would like to add psychiatric evaluation. Reevaluated today on 09/27/2017, patient is definitely more awake today, in good spirits, relatively asymptomatic, and she had a cardiac catheterization today which showed normal coronaries, but poor LV function, and cardiomyopathy. The property analyst is recommending ICD placement. The exact etiology of her LV dysfunction is not clear. Mentation-pérez, the patient seems to be almost back to normal. She is alert, oriented 3, and in no form of distress. She is definitely more appropriate today compared to yesterday. And she understood the plan of requiring ICD placement to hopefully avoid cardiac arrest again. In the future. CBC is relatively normal basic metabolic profile is normal. Reevaluated today on 09/28/2017, patient is doing extremely well, he is presently an overflow from [facility], had her AICD implanted yesterday, postoperative course has been uneventful. Patient is doing great, alert oriented, and not confused anymore. She is asymptomatic. Labs were reviewed she had a relatively normal CBC and normal basic metabolic profile. Normal renal profile. Chest x-ray showing improvement in her bilateral areas of consolidation and small pleural effusion. The patient is seen again today 09/29/2017 in follow-up in the intensive care unit as a [facility] care unit overflow. She is currently sitting up in a chair at the bedside. She is awake and alert in no acute distress. She denies any shortness of breath, cough or congestion. She is maintaining good O2 saturations in the 90s on room air. She is currently on bronchodilators. She is on antibiotics in the form of Unasyn. She is continued on amiodarone. White count 10.5. Hemoglobin 11.3. Creatinine 0.80. Potassium 3.8. Magnesium 1.5. Objective - Vital Signs Vital signs: Vital Signs Temp 97.7 F 09/29/17 08:00 Pulse 77 09/29/17 09:02 Resp 18 09/29/17 08:00 BP 128/83 09/29/17 08:00 Pulse Ox 96 09/29/17 08:00 Intake & Output 09/28/17 09/29/17 09/29/17 18:59 06:59 18:59 Intake Total 1890 780 Output Total 8661 083 9505 Balance -10 -600 -720 Weight 77.8 kg 74.6 kg Intake: IV 450 200 Ampicillin-Sulbactam 3 gm 200 100 In Sodium Chloride 0.9% 100 ml @ 100 mls/hr IVPB Q6H JOZEF Rx#:[id number] Magnesium Sulfate-D5w Pmx 200 100 1 gm In Dextrose/Water 1 100ml.bag @ 100 mls/hr IVPB Q1H JOZEF Rx#: [id number] Sodium Chloride 0.9% 1, 50 000 ml @ 50 mls/hr IV . Q20H JOZEF Rx#:[id number] Oral 1440 580 Output: Urine 8436 060 0541 Other: Voiding Method Bedside Commode Bedside Commode Bedside Commode # Voids 3 3 # Bowel Movements 1 - Exam GENERAL EXAM: Alert, active, comfortable in no apparent distress. HEAD: Normocephalic. EYES: Normal reaction of pupils, equal size. NOSE: Clear with pink turbinates. THROAT: No erythema or exudates. NECK: No masses, no JVD. CHEST: No chest wall deformity. Resting to the left subclavian surgical site is clean and dry. LUNGS: Equal air entry with no crackles, wheeze, rhonchi or dullness. CVS: S1 and S2 normal with no audible murmur, regular rhythm. ABDOMEN: No hepatosplenomegaly, normal bowel sounds, no guarding or rigidity. SPINE: No scoliosis or deformity SKIN: No rashes CENTRAL NERVOUS SYSTEM: No focal deficits, tone is normal in all 4 extremities. EXTREMITIES: There is no peripheral edema. No clubbing, no cyanosis. Peripheral pulses are intact. - Labs CBC & Chem 7: 09/29/17 04:37 09/29/17 04:37 Labs: Abnormal Lab Results - Last 24 Hours (Table) 09/29/17 09/29/17 Range/Units 04:37 04:37 RBC 3.67 L (3.80-5.40) m/uL Hgb 11.3 L (11.4-16.0) gm/dL Phosphorus 4.6 H (2.5-4.5) mg/dL Magnesium 1.5 L (1.6-2.3) mg/dL Microbiology - Last 24 Hours (Table) 09/24/17 10:38 Blood Culture - Preliminary Blood No Growth after 96 hours 09/24/17 10:19 Blood Culture - Preliminary Blood No Growth after 96 hours Assessment and Plan Assessment: Impression: 1: Acute hypoxic respiratory failure secondary to cardiac arrest secondary to cardiac arrhythmia, possible torsade. Secondary to severe cardiomyopathy and LV dysfunction but the patient was found to have normal coronaries. 2: Acute aspiration pneumonia, remains on Unasyn being followed by infectious disease. 3 acute leukocytosis secondary to aspiration pneumonia. Improving 4 elevated troponin level secondary to cardiac arrest, rule out underlying coronary artery disease, patient is being followed by cardiology and addressing that issue itself. 5 acute hypotension, responded to holding narcotics and fluid boluses, strongly doubt sepsis. I believe the hypertension is secondary to hypovolemia and secondary to narcotics. Resolved. 6 right hilar fullness, hence a CT angiogram was done, and it showed mostly findings of aspiration with bihilar consolidation right more so than left. Remains on antibiotics 7 acute mental status change most likely secondary to mild anoxic brain injury significantly improved 8 possible component of underlying depression, presently asymptomatic. 9 status post AICD implantation placed on 09/27/2017. 10 severe cardiomyopathy and LV dysfunction, status post AICD implantation. Recommendation: The patient was seen and evaluated by Dr. Barriga. She is stable from the pulmonary and critical care standpoint. She'll be discharged home once cleared by cardiology. I, the cosigning physician, performed a history & physical examination of the patient. Lungs sounds are clear. Maintaining good O2 saturations in the 90s on room air. I discussed the assessment and plan of care with my nurse practitioner, Kathleen Zapata. I attest to the above note as dictated by her.
[2017-09-29 12:06] VITALS: RESP 16
--- NOTE | 2017-09-29 12:10 | P.DS ---
Providers Date of admission: 09/23/17 23:45 Expected date of discharge: 09/29/17 Attending physician: Pablo Gould MD Consults: 09/23/17 23:47 Consult Physician Urgent Consulting Provider: Sonam Chew Consult Reason/Comments: V. fib arrest, ICU management Do you want consulting provider notified?: Already Contacted Consult Physician Urgent Consulting Provider: Larisa Rocha Consult Reason/Comments: v-fib arrest Do you want consulting provider notified?: Already Contacted 09/24/17 09:18 Consult Physician Urgent Consulting Provider: Tiawo Szymanski Consult Reason/Comments: post V-fib arrest Do you want consulting provider notified?: Yes 09/24/17 10:05 Consult Physician Urgent Consulting Provider: Evan Gupta Consult Reason/Comments: Antibiotic guidance Do you want consulting provider notified?: Yes 09/26/17 12:06 Consult Physician Urgent Consulting Provider: Herminio Echevarria Consult Reason/Comments: Acute cholecystitis Do you want consulting provider notified?: Yes 09/26/17 19:59 Consult Physician Routine Consulting Provider: Srdievi Couch Consult Reason/Comments: confusion/altered mental status Do you want consulting provider notified?: Yes Primary care physician: Stated None - Discharge Diagnosis(es) (1) Cardiac arrest Current Visit: Yes Status: Resolved (2) Ventricular fibrillation Current Visit: Yes Status: Acute (3) Non-ischemic cardiomyopathy Current Visit: Yes Status: Acute (4) Aspiration pneumonia Current Visit: Yes Status: Acute (5) Acute respiratory failure with hypoxia Current Visit: Yes Status: Acute (6) Elevated troponin Current Visit: Yes Status: Acute (7) Metabolic encephalopathy Current Visit: Yes Status: Acute (8) Chronic cholecystitis Current Visit: Yes Status: Acute (9) Normocytic anemia, not due to blood loss Current Visit: Yes Status: Acute (10) Transaminitis Current Visit: Yes Status: Acute (11) Tobacco abuse Current Visit: Yes Status: Acute Hospital Course: Patient is a 52-year-old female with a past medical history of congestive heart failure, tobacco abuse, and marijuana use who presented to the ER via EMS with V. fib arrest. She was defibrillated twice in the field with return of spontaneous circulation. From when she was unresponsive to EMS arrival was approximately 5 minutes. It appears that she had return of spontaneous circulation 10 minutes after arrival of EMS. This would be a total down time of approximately 15 minutes. On arrival to the ER patient was still significantly obtunded and was intubated. EKG was obtained which showed a QTC of 462 which was significantly improved. There is concern for possible Torsades. She was given 2 g of magnesium. Chest x-ray was obtained which showed no acute process. Cardiology was contacted. She was admitted to the ICU for further monitoring and care. Laboratory analysis showed an elevated white blood cell count, elevated glucose, low potassium, and elevated liver enzymes. Urinalysis showed possible urinary tract infection however culture was negative. After admission to the ICU she had one episode of hypotension requiring IV fluid resuscitation. Initial echocardiogram showed a preserved ejection fraction. She was subsequently extubated on 09/24. After that point in time she was noted to have some intermittent episodes of confusion requiring IV haldol. She was also found to have a pneumonia and was started on IV antibiotics. Infectious disease was consulted. She underwent an abdominal ultrasound which showed percholecystic fluid and she was diagnosed with chronic cholecystitis. She was seen by Dr. Turpin general surgery who recommended laparoscopic cholecystectomy once stable and this could be completed as an outpatient. Her troponins were slightly elevated and she subsequently underwent a cardiac cath on 09/27 which showed normal coronaries but an ejection fraction of 40%. She therefore had an ICD placed on 09/27. There was some concern about her competency to make decisions. She was seen by neurology who felt that she had returned to baseline. She was seen by psychiatry who did not feel that she had any significant psychosis or depression. She'll follow with neurology on an outpatient basis to determine overall cognitive status after anoxic injury. She was determined stable for discharge home. She'll complete a course of Augmentin for treatment of her pneumonia. She was also placed on aspirin, lisinopril, metoprolol, and spironolactone by cardiology. She has had persistently low magnesium during hospitalization will be placed on magnesium supplementation. She will follow up with Dr. Rocha in 1 week and at the device clinic in 7 days. She does not have insurance and she has therefore been referred to the [facility], she had seen Dr. Manuel in the past. She was also given discharge instructions for care of her ICD. Patient seen and examined at bedside. No chest pain, shortness of breath, nausea, or vomiting. Excited to go home. Has no insurance. She realizes the importance of taking her medications we have done our best to place her on an affordable medication regimen. Vital signs reviewed and stable. General: non toxic, no distress, appears at stated age Derm: warm, dry, multiple areas of bruising Head: atraumatic, normocephalic, symmetric Eyes: EOMI, no lid lag, anicteric sclera Mouth: no lip lesion, mucus membranes moist Cardiovascular: S1S2 reg, no murmur, positive posterior tibial pulse bilateral, Lungs: CTA bilateral, no rhonchi, no rales , no accessory muscle use Abdominal: soft, nontender to palpation, no guarding, no appreciable organomegaly Ext: no gross muscle atrophy, no edema, no contractures Neuro: CN II-XI grossly intact, no focal neuro deficits Psych: Alert, oriented, appropriate affect A total of 37 minutes of time were spent preparing this complex discharge summary . Pertinent Studies: Abdominal ultrasound-thickened gallbladder wall with pericholcecystic fluid consistent with cholecystitis, hepatomegaly CTA chest-no PE, tiny bilateral pleural effusions with bilateral hilar consolidation with central bilateral lower lobe extension, moderate periportal edema Echo-ejection fraction 50-55%, left atrium mildly dilated Procedures: Cardiac catheterization 09/27-normal coronary arteries, moderately impaired left ventricular systolic function with an ejection fraction of 40% and moderate global hypokinesis ICD placement 09/27 Patient Condition at Discharge: Stable Plan - Discharge Summary Discharge Rx Participant: Yes New Discharge Prescriptions: New Aspirin 81 mg PO DAILY #30 chew Lisinopril [Zestril] 10 mg PO BID #60 tab Metoprolol Tartrate [Lopressor] 25 mg PO BID #60 tab Spironolactone [Aldactone] 25 mg PO DAILY #30 tab Amoxic-Pot Clav 875-125Mg [Augmentin 875-125] 1 tab PO Q12HR #8 tablet Continue Multivitamins, Thera [Multivitamin (formulary)] 1 tab PO DAILY Discontinued Ibuprofen [Motrin] 600 mg PO BID PRN PRN Reason: Pain Discharge Medication List Multivitamins, Thera [Multivitamin (formulary)] 1 tab PO DAILY 02/23/17 [History ] Amoxic-Pot Clav 875-125Mg [Augmentin 875-125] 1 tab PO Q12HR #8 tablet 09/29/17 [Rx] Aspirin 81 mg PO DAILY #30 chew 09/29/17 [Rx] Lisinopril [Zestril] 10 mg PO BID #60 tab 09/29/17 [Rx] Metoprolol Tartrate [Lopressor] 25 mg PO BID #60 tab 09/29/17 [Rx] Spironolactone [Aldactone] 25 mg PO DAILY #30 tab 09/29/17 [Rx] Follow up Appointment(s)/Referral(s): Larisa Rocha MD [STAFF PHYSICIAN] - 1 Week (Device clinic follow-up in [address] Rocha in 2-3 weeks ) Ines Manuel MD [REFERRING] - 10/08/17 10:30 am Taiwo Szymanski MD [STAFF PHYSICIAN] - 1 Week [facility], [NON-STAFF] - [facility] [NON-STAFF] - 1 Week Herminio Echevarria MD [STAFF PHYSICIAN] - 1 Week Activity/Diet/Wound Care/Special Instructions: PATIENT EDUCATION MATERIAL Instructions following a heart rhythm device implant. 1. Keep dressing DRY for 5 DAYS. You may cover the area with Saran or Cling Wrap, prior to a shower. 2. The dressing will be removed in the Device Clinic at [facility]. Absorbable sutures were used to close the wound. 3. Avoid raising the left arm above the shoulder level. 4 week restriction 4. Avoid arm movements, like backscratching, rubbing the head, or pulling on a cord. 4 weeks restriction 5. Gentle range of motion movements of the shoulder, closest to the incision should be performed to avoid a frozen shoulder. (Pendulum exercises of the shoulder) 6. The opposite arm may be used freely. 7. Avoid driving for 7 days. 8. Avoid activities such as golfing, swimming, weed whacking, lifting more than 10 pounds weight, bowling, gymnastics and weight training/lifting. (6 weeks restriction) 9. Activities such as wood chopping with an axe, pull-ups in the gymnasium, power lifting, arc-welding, being close to home induction cooktops will always be a problem. 10. Arm sling is a mere reminder not to raise the arm above the head. However you do not need to keep the arm completely immobilized. Your free to move the arm and use it and for normal activities. In case of any problems, please call [facility], Simona Venegas, @ [phone], Attention: Device Clinic Device clinic follow-up in 5 days Follow-up with primary order builder loader in 2-3 weeks, ATTN: Dr. Rocha heart healthy diet Stop smoking Discharge Disposition: HOME SELF-CARE
[2017-09-29 12:43] VITALS: TEMP 98
[2017-09-29 13:53] VITALS: BP 138/85; PULSE 60
--- NOTE | 2017-09-29 13:59 | P.PN ---
Subjective Progress Note Date: 09/29/17 This is a 52-year-old female who presented to the hospital with episodic the point and cardiac arrest. She subsequently was extubated and recovered neurologically. Subsequently she underwent a cardiac catheterization which revealed no evidence of high-grade stenosis with a severely impaired left ventricular systolic function. She underwent implantation of an AICD, device was interrogated yesterday and is functioning appropriately. She was seen and examined in the intensive care unit this morning, hemodynamically stable. Objective - Vital Signs Vital signs: Vital Signs Temp 98.0 F 09/29/17 12:00 Pulse 60 09/29/17 13:52 Resp 16 09/29/17 13:52 BP 138/85 09/29/17 13:52 Pulse Ox 98 09/29/17 13:52 Intake & Output 09/28/17 09/29/17 09/29/17 18:59 06:59 18:59 Intake Total 1890 780 Output Total 6426 218 0101 Balance -10 -600 -720 Weight 77.8 kg 74.6 kg Intake: IV 450 200 Ampicillin-Sulbactam 3 gm 200 100 In Sodium Chloride 0.9% 100 ml @ 100 mls/hr IVPB Q6H JOZEF Rx#:[id number] Magnesium Sulfate-D5w Pmx 200 100 1 gm In Dextrose/Water 1 100ml.bag @ 100 mls/hr IVPB Q1H JOZEF Rx#: [id number] Sodium Chloride 0.9% 1, 50 000 ml @ 50 mls/hr IV . Q20H JOZEF Rx#:[id number] Oral 1440 580 Output: Urine 5822 208 8678 Other: Voiding Method Bedside Commode Bedside Commode Bedside Commode # Voids 3 3 # Bowel Movements 1 - Exam PHYSICAL EXAMINATION: HEENT: Head is atraumatic, normocephalic. Pupils equal, round. Neck is supple. There is no elevated jugular venous pressure. HEART EXAMINATION: Heart S1, S2 normal. No murmur or gallop heard. Site of device implantation dressing is dry and intact CHEST EXAMINATION: Lungs are clear to auscultation and precussion. No chest wall tenderness is noted on palpation or with deep breathing. ABDOMEN: Soft, nontender. Bowel sounds are heard. No organomegaly noted. EXTREMITIES: 2+ peripheral pulses with no evidence of peripheral edema and no calf tenderness noted. NEUROLOGIC patient is awake, alert and oriented -3. . - Labs CBC & Chem 7: 09/29/17 04:37 09/29/17 04:37 Labs: Abnormal Lab Results - Last 24 Hours (Table) 09/29/17 09/29/17 Range/Units 04:37 04:37 RBC 3.67 L (3.80-5.40) m/uL Hgb 11.3 L (11.4-16.0) gm/dL Phosphorus 4.6 H (2.5-4.5) mg/dL Magnesium 1.5 L (1.6-2.3) mg/dL Microbiology - Last 24 Hours (Table) 09/24/17 10:38 Blood Culture - Preliminary Blood No Growth after 120 hours 09/24/17 10:19 Blood Culture - Preliminary Blood No Growth after 120 hours Assessment and Plan Plan: Assessment and plan #1 Status post cardiac arrest with torsade #2 nonischemic cardiomyopathy, status post implantation of AICD #3 nicotine dependence Plan Patient may be able to be discharged home today from cardiology's perspective. We will make her a follow-up appointment in the office post discharge. DNP note has been reviewed, I agree with a documented findings and plan of care. Patient was seen and examined.
--- NOTE | 2017-09-29 14:53 | P.PN ---
Subjective Progress Note Date: 09/29/17 This patient is a 52-year-old female who was seen yesterday in neurology consultation for evaluation of cardiac arrest and altered mental status following extubation. Patient was extubated and was showing signs of slight improvement in her overall mental mental status. She was found to have evidence of possible aspiration pneumonia involving the right lower lobe. Infectious disease was consulted yesterday and the patient is currently being covered with Unasyn for treatment of aspiration pneumonia. The exact etiology of her cardiac arrest with torsades remains unclear. Cardiology continues to follow her closely. Her left ventricular systolic function has been shown to be preserved. It is unclear of her exact medication list which is being reviewed by cardiology as to possible etiology for her cardiac arrest. Patient is being switched to oral amiodarone as well as oral beta cristina today by cardiology. She is to continue on heparin. This been a slight elevation of troponins and cardiology will monitor. Patient may require cardiac catheterization to rule out any ischemic etiology for her cardiac arrhythmia. According to her ICU nursing staff she is being considered for a cardiac catheterization tomorrow. She was sent for a CTA angiogram of the chest which came back negative for pulmonary embolism. We will await further recommendations from cardiology. Patient neurologically is more awake today but still gets episodes of somnolence. This evening she does seem to answer questions more appropriately in her speech is much improved as compared to yesterday. Patient likely has some findings of anoxic encephalopathy following her cardiac arrest. She does seem to be doing much better this evening in the ICU. The patient underwent cardiac catheterization this morning. The cardiac cath revealed normal coronary arteries. There was moderately impaired left ventricular systolic function. Patient was recommended by Dr. Rocha to be considered for ICD implantation. Etiology of her cardiomyopathy is nonischemic. She did have a ICD placement yesterday and is now back to the intensive care unit. Patient denies any chest pain at this time. She does seem to be doing much better in terms of her cognitive functioning. We will continue close neurological follow-up for the patient during this admission. Patient was seen by psychiatry yesterday. She does not require any antipsychotic medications at this time. She seems to be showing good improvement in her overall cognitive functioning today. She is being considered for possible discharge home today. We will await further recommendations were multiple consultants addressing this patient in the intensive care unit. Her overall prognosis at this time remains guarded. Objective - Vital Signs Vital signs: Vital Signs Temp 98.0 F 09/29/17 12:00 Pulse 60 09/29/17 13:52 Resp 16 09/29/17 13:52 BP 138/85 09/29/17 13:52 Pulse Ox 98 09/29/17 13:52 Intake & Output 09/28/17 09/29/17 09/29/17 18:59 06:59 18:59 Intake Total 1890 780 Output Total 2766 357 9674 Balance - Weight 77.8 kg 74.6 kg Intake: IV 450 200 Ampicillin-Sulbactam 3 gm 200 100 In Sodium Chloride 0.9% 100 ml @ 100 mls/hr IVPB Q6H JOZEF Rx#:[id number] Magnesium Sulfate-D5w Pmx 200 100 1 gm In Dextrose/Water 1 100ml.bag @ 100 mls/hr IVPB Q1H JOZEF Rx#: [id number] Sodium Chloride 0.9% 1, 50 000 ml @ 50 mls/hr IV . Q20H JOZEF Rx#:[id number] Oral 1440 580 Output: Urine 4455 [id number] [id number] Other: Voiding Method Bedside Commode Bedside Commode Bedside Commode # Voids 3 3 # Bowel Movements 1 - Exam Physical examination: PHYSICAL EXAMINATION: Patient is resting comfortably in bed. VITAL SIGNS: Blood pressure is [132/83]. Heart rate is [53]. Respiration is [18] . Temperature is [98.0]. HEENT: Head is atraumatic, neck is supple, there were no carotid bruits. CHEST: Lungs are clear to auscultation and percussion. CARDIAC: S1, S2 normal rate and rhythm. There is no murmur. ABDOMEN: Soft and nontender. Bowel sounds are present. EXTREMITIES: There is no pedal edema. Peripheral pulses are present. Neurological examination: Patient has a nonfocal neurological examination today. Patient is much more awake and alert today and is cooperative at this time. She did have an episode of acute agitation and combativeness early this morning. This has since resolved. - Labs CBC & Chem 7: 09/29/17 04:37 09/29/17 04:37 Labs: Abnormal Lab Results - Last 24 Hours (Table) 09/29/17 09/29/17 Range/Units 04:37 04:37 RBC 3.67 L (3.80-5.40) m/uL Hgb 11.3 L (11.4-16.0) gm/dL Phosphorus 4.6 H (2.5-4.5) mg/dL Magnesium 1.5 L (1.6-2.3) mg/dL Microbiology - Last 24 Hours (Table) 09/24/17 10:38 Blood Culture - Preliminary Blood No Growth after 120 hours 09/24/17 10:19 Blood Culture - Preliminary Blood No Growth after 120 hours Assessment and Plan (1) Cardiac arrest Status: Resolved Code(s): I46.9 - CARDIAC ARREST, CAUSE UNSPECIFIED SNOMED Code(s): 282454701 (2) Acute encephalopathy Status: Resolved Code(s): G93.40 - ENCEPHALOPATHY, UNSPECIFIED SNOMED Code(s ): 60466464 (3) Torsades de pointes Status: Acute Code(s): I47.2 - VENTRICULAR TACHYCARDIA SNOMED Code(s): 48752644 (4) Ventricular fibrillation Status: Acute Code(s): I49.01 - VENTRICULAR FIBRILLATION SNOMED Code(s): 33647323 Plan: This patient is a 52-year-old female who suffered an acute cardiac arrest and was initially intubated and transferred into the intensive care unit. She was successfully extubated and is seen by cardiology for further evaluation of acute cardiac arrest. Patient was sent for a cardiac catheterization today. Coronary arteries were normal. It was recommended she have a ICD placement and this was also completed today by cardiology. she underwent implantation of a AICD device which was interrogated yesterday and is functioning appropriately. She remains hemodynamically stable. She is to follow-up with cardiology upon discharge. The patient is now back into the intensive care unit. Her procedure went very well for her. She is now resting comfortably. She denies any further episodes of severe confusion or agitation today. She is to be evaluated by psychiatry yesterday. Their recommendations were reviewed and she does not require any new anti-psychotic medications. She appears to be near baseline level of function and is being considered for discharge home today. She is being considered for possible discharge home today. We will continue close neurological follow-up with this patient in the intensive care unit. Her overall prognosis at this time remains guarded.patient may follow-up in the outpatient neurology clinic as needed.
--- NOTE | 2017-10-01 15:23 | CDI ---
Documentation Clarification Form Date: 10/01/2017 12:00:00 AM From: CLAUDIA Edwards; Sheila Bailey [employer]ag [employer] Operator Phone: If you have a question about this query, please contact Sheila Bailey [employer] Operator at [phone] between 8am and 5pm. Admit Date: 09/23/2017 11:45:00 PM Patient Name: Kiah Machado Visit Number: [id number] Discharge Date: 09/29/2017 ATTENTION: The Clinical Documentation Specialists (CDI) and [facility] Coding Staff appreciate your assistance in clarifying documentation. Please respond to the clarification below the line at the bottom and electronically sign. The CDI & [facility] Coding staff will review the response and follow-up if needed. Please note: Queries are made part of the Legal Health Record. If you have any questions, please contact the author of this message via ITS. Dr. Leonila Snow The patient presented in cardiac arrest and respiratory failure. She was found to have aspiration pneumonia and UTI, along with ventricular fibrillation. Sepsis is documented starting progress note 09/24, but this DX is not carried to the discharge summary. Vitals on admission; temp 97.6, pulse 22, resp 20, BP 102/65 WBC 16.2. Treatment: Ceftaroline and vancomycin. In your professional opinion, can you please clarify? Sepsis ruled in Sepsis ruled out Other, please specify Unable to determine Sepsis ruled out As per note on 09/28 when I stated "Sepsis ruled out, due to normal temperature, normal heart rate, and normal respiratory rate on arrival" LAVONNED
== END 2017-09-29 14:02 | disposition home or self-care (01) | DRG 224 ==
LOC: EC 21:58 → 6ICU 23:45
PROVIDERS: ADMIT Internal Medicine; ATTEND Internal Medicine
PROC: 5A1935Z Respiratory Ventilation, Less than 24 Consecutive Hours (ICD-10-PCS; principal; 2017-09-23)
PROC: 0BH18EZ Insertion of Endotracheal Airway into Trachea, Via Natural or Artificial Opening Endoscopic (ICD-10-PCS; principal; 2017-09-23)
PROC: B2111ZZ Fluoroscopy of Multiple Coronary Arteries using Low Osmolar Contrast (ICD-10-PCS; 2017-09-26)
PROC: 4A023N7 Measurement of Cardiac Sampling and Pressure, Left Heart, Percutaneous Approach (ICD-10-PCS; 2017-09-26)
PROC: B2151ZZ Fluoroscopy of Left Heart using Low Osmolar Contrast (ICD-10-PCS; 2017-09-26)
PROC: 02HK3KZ Insertion of Defibrillator Lead into Right Ventricle, Percutaneous Approach (ICD-10-PCS; 2017-09-27)
PROC: 0JH609Z Insertion of Cardiac Resynchronization Defibrillator Pulse Generator into Chest Subcutaneous Tissue and Fascia, Open Approach (ICD-10-PCS; 2017-09-27)
DX: I49.01 Ventricular fibrillation (principal); G92 Toxic encephalopathy; J96.01 Acute respiratory failure with hypoxia; J69.0 Pneumonitis due to inhalation of food and vomit; K81.2 Acute cholecystitis with chronic cholecystitis; N39.0 Urinary tract infection, site not specified; I50.9 Heart failure, unspecified; I42.8 Other cardiomyopathies; I11.0 Hypertensive heart disease with heart failure; D64.9 Anemia, unspecified; E86.1 Hypovolemia; F12.90 Cannabis use, unspecified, uncomplicated; I47.2 Ventricular tachycardia; I49.3 Ventricular premature depolarization; Z72.0 Tobacco use; Z79.899 Other long term (current) drug therapy; R77.8 Other specified abnormalities of plasma proteins
CPT/HCPCS: 31500; 33216; 36415; 36600; 43753; 70450; 71045; 71046; 71275; 76705; 80048; 80053; 80306; 81001; 82272; 82550; 82553; 82805; 83036; 83520; 83605; 83735; 83880; 84100; 84439; 84443; 84484; 85025; 85610; 85730; 86708; 86803; 87040; 87070; 87086; 87205; 87340; 93005; 93306; 93458; 93641; 94002; 94003; 94640; 99291; 99292

== ENCOUNTER → 2019-01-07 | Outpatient (CLI) | payer OTHER ==
[2019-01-08 00:40] LABS: African American GFR (CKD) 66.8 (60.0-200.0); Albumin 4.2 g/dL (3.80-4.90); Albumin/Globulin Ratio 2.21 (1.60-3.17); Anion Gap 7.8 mmol/L (4.00-12.00); Calcium 9.5 mg/dL (8.7-10.3); Carbon Dioxide 27.2 mmol/L (21.6-31.8); Globulin 1.9 g/dL (1.6-3.3); Potassium 3.8 mmol/L (3.5-5.5); Total Bilirubin 0.7 mg/dL (0.3-1.2); Total Protein 6.1 g/dL (6.2-8.2)
== END | disposition home or self-care (01) ==
LOC: LABWHC1 16:17
PROVIDERS: ATTEND Internal Medicine Interventional Cardiology
DX: I42.8 Other cardiomyopathies (principal)
CPT/HCPCS: 36415; 80053

== ENCOUNTER → 2023-02-13 | Outpatient (CLI) | payer OTHER ==
--- NOTE | 2023-02-13 14:41 | XR ---
EXAMINATION TYPE: XR shoulder complete RT DATE OF EXAM: 02/13/2023 COMPARISON: NONE HISTORY: Pain TECHNIQUE: Three views are submitted. FINDINGS: The osseous structures are intact. There is no acute fracture or dislocation. Moderate severe AC marina nt arthropathy with severe glenohumeral joint arthropathy. There is a metallic lead overlying portion s of the mediastinum partially included [id number]. IMPRESSION: 1. Severe glenohumeral joint arthropathy and moderate to severe AC joint arthropathy.
== END | disposition home or self-care (01) ==
LOC: RADXRMAIN 13:56
PROVIDERS: ATTEND Emergency Medicine
DX: S46.911A Strain of unspecified muscle, fascia and tendon at shoulder and upper arm level, right arm, initial encounter (principal); M19.011 Primary osteoarthritis, right shoulder

== ENCOUNTER → 2023-10-18 | Outpatient (CLI) | payer OTHER ==
[2023-10-18 18:28] LABS: NT-Pro-B-Type Natriuretic Pept 133 pg/mL (0-125)
[2023-10-18 18:31] LABS: Blood Urea Nitrogen 17.1 mg/dL (9.0-27.0); Chloride 103 mmol/L (96-109); Glucose 99 mg/dL (70-110); Potassium 4.3 mmol/L (3.5-5.5); Sodium 141 mmol/L (135-145)
[2023-10-18 18:32] LABS: ALT 25 U/L (8-44); AST 25 U/L (13-35); Albumin 4.2 g/dL (3.8-4.9); Alkaline Phosphatase 103 U/L (41-126); Calcium 9.7 mg/dL (8.7-10.3); Carbon Dioxide 25.7 mmol/L (21.6-31.8); Total Bilirubin 0.3 mg/dL (0.3-1.2); Total Protein 6.2 g/dL (6.2-8.2)
== END | disposition home or self-care (01) ==
LOC: LABWHC1 14:34
PROVIDERS: ATTEND Internal Medicine Interventional Cardiology
DX: I42.8 Other cardiomyopathies (principal)
CPT/HCPCS: 36415; 80053; 83880

== ENCOUNTER → 2024-05-22 | Outpatient (CLI) | payer OTHER ==
[2024-05-22 15:12] LABS: BUN/Creat Ratio 17.23 Ratio (12.00-20.00); Blood Urea Nitrogen 22.4 mg/dL (9.0-27.0); Carbon Dioxide 27.4 mmol/L (21.6-31.8); Chloride 102 mmol/L (96-109); Glucose 87 mg/dL (70-110); Potassium 4.6 mmol/L (3.5-5.5); Sodium 141 mmol/L (135-145)
== END | disposition home or self-care (01) ==
LOC: LABWHC1 10:13
PROVIDERS: ATTEND Internal Medicine Interventional Cardiology
DX: I42.8 Other cardiomyopathies (principal)
CPT/HCPCS: 36415; 80048